=== PATIENT | female | born 1940 | race Hispanic/Latino ===

== ENCOUNTER 2016-06-24 13:59 | Emergency (ER) | payer MEDICARE, OTHER ==
[2016-06-24 13:59] VITALS: BMI 33.0
[2016-06-24 14:08] VITALS: TEMP 98.2
--- NOTE | 2016-06-24 14:36 | ED PDOC ---
Arrival/HPI - General Chief Complaint: Lower Extremity Problem/Injury Time Seen by Provider: 06/24/16 14:24 Historian: Patient - History of Present Illness Narrative History of Present Illness (Text): 06/24/16 14:26 75 y/o female, pmh including htn, psychiatric history including bipolar, biba c/ o rt. knee pain and swelling x 3 days with no fall or trauma. Pt. stated that she it's painful, no skin pain, no fall or trauma, no fever or chills, eating and drinking well, no dizziness, no skin discoloration, no other medical or psychological complaints. Past Medical History - Provider Review Nursing Documentation Reviewed: Yes - Infectious Disease Hx of Infectious Diseases: None - Tetanus Immunization Tetanus Immunization: Unknown - Reproductive Menopause: Yes - Past Medical History Past Medical History: Non-Contributing - Cardiac Hx Cardiac Disorders: Yes Hx Hypertension: Yes - Pulmonary Hx Respiratory Disorders: Yes Hx Bronchitis: Yes Hx Chronic Obstructive Pulmonary Disease (COPD): Yes Hx Pneumonia: Yes - Neurological Hx Neurological Disorder: Yes Hx Dizziness: Yes Hx Migraine: Yes - HEENT Hx HEENT Disorder: No - Renal Hx Renal Disorder: Yes - Endocrine/Metabolic Hx Endocrine Disorders: No - Hematological/Oncological Hx Blood Disorders: No - Integumentary Hx Dermatological Disorder: No - Musculoskeletal/Rheumatological Hx Falls: Yes - Gastrointestinal Hx Gastrointestinal Disorders: No - Genitourinary/Gynecological Hx Genitourinary Disorders: Yes Hx Incontinence: Yes Hx Urinary Tract Infection: Yes Other/Comment: prolapsed bladder - Psychiatric Hx Anxiety: Yes Hx Bipolar Disorder: Yes Hx Depression: Yes Hx Emotional Abuse: No Hx Physical Abuse: No Hx Sexual Abuse: No Hx Substance Use: No - Past Surgical History Past Surgical History: Non-Contributing - Surgical History Other/Comment: R BREAST sx benign, BLADDER/ fx humerus - Anesthesia Hx Anesthesia: Yes Hx Anesthesia Reactions: No Hx Malignant Hyperthermia: No - Suicidal Assessment Feels Threatened In Home Enviroment: No Family/Social History - Physician Review Nursing Documentation Reviewed: Yes Family/Social History: Unknown Family HX Smoking Status: Former Smoker Hx Alcohol Use: No Hx Substance Use: No Hx Substance Use Treatment: No Allergies/Home Meds Allergies/Adverse Reactions: Allergies clonazepam Allergy (Verified 06/24/16 14:04) RASH quetiapine Allergy (Verified 06/24/16 14:04) RASH risperidone Allergy (Verified 06/24/16 14:04) RASH Home Medications: Home Meds Medication Instructions Recorded Confirmed Docusate [Colace] 200 mg PO DAILY 06/24/16 06/24/16 Famotidine [Pepcid] 40 mg PO HS 06/24/16 06/24/16 Metoprolol Tartrate [Lopressor] 25 mg PO BID 06/24/16 06/24/16 OLANZapine [Zyprexa] 10 mg PO HS 06/24/16 06/24/16 Review of Systems - Review of Systems Constitutional: absent: Fatigue, Fevers Eyes: absent: Vision Changes ENT: absent: Hearing Changes Respiratory: absent: SOB, Cough Cardiovascular: absent: Chest Pain Gastrointestinal: absent: Abdominal Pain, Diarrhea, Nausea, Vomiting Musculoskeletal: Arthralgias, Joint Swelling. absent: Back Pain, Neck Pain, Myalgias Skin: absent: Rash, Pruritis, Skin Lesions, Laceration, Abscess, Ulcer, Cellulitis Neurological: absent: Headache, Dizziness, Focal Weakness, Gait Changes, Speech Changes, Facial Droop, Disequilibrium, Seizure, Other Physical Exam Vital Signs Reviewed: Yes Vital Signs Temp Pulse Resp BP Pulse Ox 06/24/16 18:00 67 18 142/71 99 06/24/16 16:00 69 18 144/76 99 06/24/16 14:07 98.2 F 74 18 146/82 99 Temperature: Afebrile Blood Pressure: Normal Pulse: Regular Respiratory Rate: Normal Appearance: Positive for: Well-Appearing, Non-Toxic, Comfortable, Uncomfortable Pain Distress: Moderate Mental Status: Positive for: Alert and Oriented X 3 - Systems Exam Head: Present: Atraumatic, Normocephalic Pupils: Present: PERRL Extroacular Muscles: Present: EOMI Conjunctiva: Present: Normal Mouth: Present: Moist Mucous Membranes Neck: Present: Normal Range of Motion Respiratory/Chest: Present: Clear to Auscultation, Good Air Exchange. No: Respiratory Distress, Accessory Muscle Use Cardiovascular: Present: Regular Rate and Rhythm, Normal S1, S2. No: Murmurs Abdomen: Present: Normal Bowel Sounds. No: Tenderness, Distention, Peritoneal Signs Back: Present: Normal Inspection Upper Extremity: Present: Normal Inspection. No: Cyanosis, Edema Lower Extremity: Present: Normal Inspection, Other (Rt. lower extremity: + swelling with generalized tenderness anteriorly, negative eric and bello signs, no cellulitis or streaking, no ulcers, no ecchymosis, FROM without limitation, sensation intact, motor 5/5, +DPPT pulses, capillary refill< 2 seconds, neurovascular intact. ). No: Edema Neurological: Present: GCS=15, Speech Normal, Motor Func Grossly Intact, Memory Normal Skin: Present: Warm, Dry, Normal Color. No: Rashes Psychiatric: Present: Alert, Oriented x 3, Normal Insight, Normal Concentration Medical Decision Making ED Course and Treatment: 06/24/16 14:36 -labs/uric acid -rt. knee xray -rt. lower extremity venuous doppler -indomethacin and colchicine po -observe and reassess 06/24/16 16:40 -RLE Venuous Doppler: as per preliminary report, there is no acute DVT. -Rt. knee xray: no fracture or dislocation but there is generalized swelling. -Labs are non-significant with normal uric acid and normal wbc. 06/24/16 18:36 -Pt. given Nasids/eyad wrap/ice pack with supportive treatment, stated that she feels better now. -I spoke to Dr. Amaya which she knows the patient very well, stated that the patient doesn't live alone and has daughter that can take care of her. -Pt. stated that she feels well and wants to be discharged home. -Discharge home with indomethacin, eyad wrap, ice pack, follow up with your own pmd and orthopedic within 2 days, return to the ER for any new or worsening signs or symptoms. - Lab Interpretations Lab Results: 06/24/16 15:30 06/24/16 15:30 Lab Results 06/24/16 15:30: WBC 7.6, RBC 4.43, Hgb 13.5, Hct 40.5, MCV 91.4, MCH 30.5, MCHC 33.3, RDW 13.3, Plt Count 185, MPV 11.6 H, Gran % 63.4, Lymph % (Auto) 27.0, Bryan % (Auto) 7.9 H, Eos % (Auto) 1.4 L, Baso % (Auto) 0.3, Gran # 4.81, Lymph # 2.1, Bryan # 0.6, Eos # 0.1, Baso # 0.02, Sodium 140, Potassium 4.2, Chloride 107, Carbon Dioxide 26, Anion Gap 11, BUN 18, Creatinine 0.9, Est GFR ( Amer) > 60, Est GFR (Non-Af Amer) > 60, Random Glucose 85, Uric Acid 3.0, Calcium 8.7, Total Bilirubin 0.5, AST 28, ALT 30, Alkaline Phosphatase 88, Total Protein 7.0, Albumin 3.7, Globulin 3.3, Albumin/Globulin Ratio 1.1 I have reviewed the lab results: Yes Interpretation: No clinic. lab abnormalty - RAD Interpretation Radiology Orders: 06/24/16 14:37 KNEE W PATELLA RIGHT 3 VIEW [RAD] Stat DUPLEX LOWER EXTRM VEIN RIGHT [US] Stat RLE Venuous Doppler: as per preliminary report, there is no acute DVT. PROCEDURE: Right knee 06/24/2016 HISTORY: rt. knee pain and swelling x 3 days COMPARISON: Comparison made with radiographs right knee 05/18/2014. Dane on-not not 5 grossly chief TECHNIQUE: Multiple views of the right knee performed. FINDINGS: No evidence acute displaced fracture nor dislocation. The osseous structures appear intact. There is a small to medium-sized suprapatellar joint effusion. IMPRESSION: No acute fractures. . 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 Pain Assessment Document 06/24/16 16:47 [email or web address] (Rec: 06/24/16 16:47 [email or web address] [id number]) Pain Reassessment Is this a pain reassessment? No Sleep Is patient sleeping during reassessment? No Presence of Pain Presence of Pain Yes Pain Scale Used Pain Scale Used Numeric Location Left, Right or Bilateral Right Pain Location Body Site Knee Description Description Constant Intensity of Pain at present 6 Pain Behavior Facial Grimacing Aggravating Factors Changing Position Alleviating Factors/Management Position Change Techniques Alleviating Factors Medication - PA / [employer] INSPECTOR / Resident Statement MD/DO has reviewed & agrees with the documentation as recorded. Disposition/Present on Arrival - Present on Arrival Any Indicators Present on Arrival: No History of DVT/PE: No History of Uncontrolled Diabetes: No Urinary Catheter: No History of Decub. Ulcer: No History Surgical Site Infection Following: None - Disposition Have Diagnosis and Disposition been Completed?: Yes Diagnosis: Bursitis Disposition: HOME/ ROUTINE Disposition Time: 14:36 Patient Plan: Discharge Patient Problems: Current Active Problems Problem Status Diagnosed Syncope Acute Condition: IMPROVED Additional Instructions: Discharge home with indomethacin, eyad wrap, ice pack, follow up with your own pmd and orthopedic within 2 days, return to the ER for any new or worsening signs or symptoms. Prescriptions: Indomethacin [Indocin] 50 mg PO TID PRN #21 cap PRN Reason: Other Referrals: Zulema Amaya MD [Primary Care Provider] - Follow up with primary Pernell Heard III, MD [Medical Doctor] - Follow up with primary Forms: WORK NOTE
[2016-06-24 15:51] LABS: ADD MANUAL DIFF? NO
[2016-06-24 16:11] LABS: ALB/GLOB RATIO 1.1 (1.1-1.8); ALKALINE PHOSPHATASE 88 U/L (38-133); ALT/SGPT 30 U/L (7-56); AST/SGOT 28 U/L (15-39); BILIRUBIN,TOTAL 0.5 mg/dL (0.2-1.3); BLOOD UREA NITROGEN 18 mg/dL (7-21); CALCIUM 8.7 mg/dL (8.4-10.5); CARBON DIOXIDE 26 mmol/L (21-33); CHLORIDE 107 mmol/L (98-107); GFR AFRICAN-AMERICAN > 60; GLUCOSE,RANDOM 85 mg/dL (70-110); POTASSIUM 4.2 mmol/L (3.6-5.0); SODIUM 140 mmol/L (132-148)
[2016-06-24 16:24] LABS: BASO # 0.02 K/mm3 (0.0-2.0); BASO % 0.3 % (0.0-3.0); EOS # 0.1 (0.0-0.7); EOS % 1.4 % (1.5-5.0); GRAN # 4.81 (1.4-6.5); GRAN % 63.4 % (50.0-68.0); HEMATOCRIT 40.5 % (36.0-48.0); LYMPH # 2.1 (1.2-3.4); MEAN CELL VOLUME 91.4 fL (80.0-105.0); MEAN CORPUSCULAR HEMOGLOBIN 30.5 pg (25.0-35.0); MEAN CORPUSCULAR HGB CONC 33.3 g/dl (31.0-37.0); MEAN PLATELET VOLUME 11.6 fl (7.0-11.0); MONO # 0.6 (0.1-0.6); MONO % 7.9 % (1.0-6.0); PLATELET COUNT 185 10^3/uL (120.0-450.0); RED CELL DISTRIBUTION WIDTH 13.3 % (11.5-14.5); WHITE BLOOD COUNT 7.6 10^3/ul (4.5-11.0)
--- NOTE | 2016-06-24 16:57 | RAD ---
PROCEDURE: Right knee 06/24/2016 HISTORY: rt. knee pain and swelling x 3 days COMPARISON: Comparison made with radiographs right knee 05/18/2014. Dane on-not not 5 grossly chief TECHNIQUE: Multiple views of the right knee performed. FINDINGS: No evidence acute displaced fracture nor dislocation. The osseous structures appear intact. There is a small to medium-sized suprapatellar joint effusion. IMPRESSION: No acute fractures. . Small to medium size suprapatellar joint effusion
[2016-06-24 18:06] VITALS: BP 142/71; PULSE 67
[2016-06-24 18:47] VITALS: RESP 16; O2SAT 98
--- NOTE | 2016-06-24 19:38 | US ---
PROCEDURE: Right lower extremity venous US HISTORY: Leg pain and swelling. Evaluate for DVT. PHYSICIAN(S): Horacio Delaney M.D. TECHNIQUE: Duplex sonography and color-flow Doppler with graded compression were used to evaluate the deep venous system of the right lower extremity. FINDINGS: The visualized deep venous system of the right lower extremity is sonographically normal and compressible. Normal waveforms and augmentation are seen. There is no sonographic evidence for deep venous thrombosis in the visualized segments of the right lower extremity. IMPRESSION: 1. No sonographic evidence for deep venous thrombosis in the visualized segments of the right lower extremity.
== END 2016-06-24 18:47 | disposition home or self-care (01) ==
LOC: ED 13:59
DX: M71.9 Bursopathy, unspecified (principal)

== ENCOUNTER 2016-07-06 08:03 | Emergency (ER) | payer MEDICARE, OTHER ==
[2016-07-06 08:23] VITALS: TEMP 97.5; BMI 34.1
[2016-07-06] MEDS ORDERED: Oxycodone/Acetaminophen 5/325 mg Tab PO STA (08:39)
--- NOTE | 2016-07-06 08:48 | ED PDOC ---
Arrival/HPI - General Chief Complaint: Lower Extremity Problem/Injury Time Seen by Provider: 07/06/16 08:03 Historian: Patient - History of Present Illness Narrative History of Present Illness (Text): 07/06/16 08:43 A 75 year old female, whose past medical history includes chronic arthritis and right knee effusions, presents to the emergency department complaining of right knee swelling and pain. Patient reports she was seen in emergency room 5 days ago and had fluid removed from her knee. Patient was referred to an Orthopedist , however, she did not follow up outpatient. She denies new trauma. She reports that the fluid has reaccumulated and she is finding walking difficult. Patient denies any fever, chills, nausea, vomiting, diarrhea, abdominal pain, urinary symptoms, chest pain, shortness of breath or any other complaints. PMD: Dr. Amaya Time/Duration: Other (few days) Symptom Course: Unchanged Quality: Other Context: Home Past Medical History - Provider Review Nursing Documentation Reviewed: Yes - Infectious Disease Hx of Infectious Diseases: None - Tetanus Immunization Tetanus Immunization: Unknown - Past Medical History Past Medical History: Non-Contributing - Cardiac Hx Cardiac Disorders: Yes Hx Hypertension: Yes - Pulmonary Hx Respiratory Disorders: Yes Hx Bronchitis: Yes Hx Chronic Obstructive Pulmonary Disease (COPD): Yes Hx Pneumonia: Yes - Neurological Hx Neurological Disorder: Yes Hx Dizziness: Yes Hx Migraine: Yes - HEENT Hx HEENT Disorder: No - Renal Hx Renal Disorder: Yes - Endocrine/Metabolic Hx Endocrine Disorders: No - Hematological/Oncological Hx Blood Disorders: No - Integumentary Hx Dermatological Disorder: No - Musculoskeletal/Rheumatological Hx Musculoskeletal Disorders: Yes Hx Falls: Yes - Gastrointestinal Hx Gastrointestinal Disorders: No - Genitourinary/Gynecological Hx Genitourinary Disorders: Yes Hx Incontinence: Yes Hx Urinary Tract Infection: Yes Other/Comment: prolapsed bladder - Psychiatric Hx Psychophysiologic Disorder: Yes Hx Anxiety: Yes Hx Bipolar Disorder: Yes Hx Depression: Yes Hx Emotional Abuse: No Hx Physical Abuse: No Hx Sexual Abuse: No Hx Substance Use: No - Past Surgical History Past Surgical History: Non-Contributing - Surgical History Other/Comment: R BREAST sx benign, BLADDER/ fx humerus - Anesthesia Hx Anesthesia: Yes Hx Anesthesia Reactions: No Hx Malignant Hyperthermia: No - Suicidal Assessment Feels Threatened In Home Enviroment: No Family/Social History - Physician Review Nursing Documentation Reviewed: Yes Family/Social History: No Known Family HX Smoking Status: Former Smoker Hx Alcohol Use: No Hx Substance Use: No Hx Substance Use Treatment: No Allergies/Home Meds Allergies/Adverse Reactions: Allergies clonazepam Allergy (Verified 07/06/16 08:27) RASH quetiapine Allergy (Verified 07/06/16 08:27) RASH risperidone Allergy (Verified 07/06/16 08:27) RASH Home Medications: Home Meds Medication Instructions Recorded Confirmed Docusate [Colace] 200 mg PO DAILY 06/24/16 06/24/16 Famotidine [Pepcid] 40 mg PO HS 06/24/16 06/24/16 Metoprolol Tartrate [Lopressor] 25 mg PO BID 06/24/16 06/24/16 OLANZapine [Zyprexa] 10 mg PO HS 06/24/16 06/24/16 Review of Systems - Physician Review All systems were reviewed & negative as marked: Yes - Review of Systems Constitutional: absent: Fevers, Night Sweats Respiratory: absent: SOB Cardiovascular: absent: Chest Pain Gastrointestinal: absent: Abdominal Pain, Diarrhea, Nausea, Vomiting Genitourinary Female: absent: Dysuria, Frequency, Hematuria, Urine Output Changes Musculoskeletal: Other (Right knee swelling and pain) Physical Exam Vital Signs Reviewed: Yes Vital Signs Temp Pulse Resp BP Pulse Ox 07/06/16 12:46 56 L 16 163/95 H 97 07/06/16 11:28 55 L 18 170/98 H 98 07/06/16 10:44 62 18 170/94 H 97 07/06/16 08:22 97.5 F L 73 18 173/80 H 97 Temperature: Afebrile Blood Pressure: Hypertensive Pulse: Regular Respiratory Rate: Normal Appearance: Positive for: Well-Appearing, Non-Toxic, Comfortable Pain Distress: None Mental Status: Positive for: Alert and Oriented X 3 - Systems Exam Head: Present: Atraumatic, Normocephalic Pupils: Present: PERRL Extroacular Muscles: Present: EOMI Conjunctiva: Present: Normal Lower Extremity: Present: NORMAL PULSES, Normal ROM, Swelling (in rightknee), Neurovascularly Intact. No: Edema, CALF TENDERNESS, Tenderness, Erythema ( compared to left knee), Deformity, Temperature Abnormalties (compared to left knee) Neurological: Present: GCS=15, CN II-XII Intact, Speech Normal Skin: Present: Warm, Dry, Normal Color. No: Rashes Psychiatric: Present: Alert, Oriented x 3, Normal Insight, Normal Concentration Medical Decision Making ED Course and Treatment: 07/06/16 08:43 Impression: A 75 year old female with right knee swelling and pain. Differential Diagnosis included but are not limited to: Plan: -- Percocet -- Reassess and disposition Prior Visits: Notes and results from previous visits were reviewed. Patient last seen in the ED on 07/01/16. Patient had an ultrasound done which was negative for DVT. Previous xray was negative for fracture. Cytology report showed no growth and was negative for crystals- essentially ruling out gout and septic joint. Progress Notes: 07/06/16 09:06 Xray today shows osteoarthritis and small joint effusion. Case discussed with Dr. Amaya, who is aware of and agrees with plan to discharge home and follow up with orthopedist. She is aware of negative DVT and negative cytology results from 5 days ago. 07/06/16 09:39 Spoke with patients daughter who agrees that patient must be seen by Dr. Mccarthy. She states she wanted her brother to take her to the orthopedist today not the emergency room. She states she will arrive to emergency room at 12 :30 today and take patient to orthopedist for an appointment at 12:45. 07/06/16 13:03 Dr. Mccarthy aware and patient given copies of u/s, xrays, cytology and micro. Daughter at bedside and will take patient now to his office - RAD Interpretation Radiology Orders: 07/06/16 12:44 KNEE RIGHT 2 VIEWS (AP & LAT) [RAD] Stat - Medication Orders Current Medication Orders: Discontinued Medications Oxycodone/Acetaminophen (Percocet 5/325 Mg Tab) 1 tab PO STAT STA Stop: 07/06/16 08:40 Last Admin: 07/06/16 09:02 Dose: 1 tab - Scribe Statement The provider has reviewed the documentation as recorded by the Laniibtanvir Griggs Provider Scribe Attestation: All medical record entries made by the Scribe were at my direction and personally dictated by me. I have reviewed the chart and agree that the record accurately reflects my personal performance of the history, physical exam, medical decision making, and the department course for this patient. I have also personally directed, reviewed, and agree with the discharge instructions and disposition. Disposition/Present on Arrival - Present on Arrival Any Indicators Present on Arrival: No History of DVT/PE: No History of Uncontrolled Diabetes: No Urinary Catheter: No History of Decub. Ulcer: No History Surgical Site Infection Following: None - Disposition Have Diagnosis and Disposition been Completed?: Yes Diagnosis: Knee effusion Disposition: HOME/ ROUTINE Disposition Time: 09:39 Patient Plan: Discharge Condition: GOOD Discharge Instructions (ExitCare): Swollen Knee Joint (ED) Additional Instructions: Follow up with orthopedist as scheduled today. Follow-up with Dr. Palacios tomorrow. Return to ED if condition worsens. Referrals: Zulema Amaya MD [Primary Care Provider] - Follow up with primary Frederic Mccarthy DO [Staff Provider] - Follow up with primary
[2016-07-06 13:10] VITALS: BP 163/95; PULSE 56; RESP 16; O2SAT 97
--- NOTE | 2016-07-06 13:36 | RAD ---
PROCEDURE: Right Knee Radiographs. HISTORY: r knee pain COMPARISON: None. FINDINGS: BONES: No fracture. JOINTS: Tricompartmental osteoarthritis. No articular erosion. JOINT EFFUSION: Small joint effusion. OTHER FINDINGS: None. IMPRESSION: Tricompartmental osteoarthritis with small joint effusion. No fracture.
== END 2016-07-06 13:03 | disposition home or self-care (01) ==
LOC: ED 08:03
DX: M25.461 Effusion, right knee (principal); Z87.891 Personal history of nicotine dependence; I10 Essential (primary) hypertension; J44.9 Chronic obstructive pulmonary disease, unspecified

== ENCOUNTER 2016-11-05 15:25 | Observation (INO) | payer MEDICARE, OTHER ==
[2016-11-05] MEDS ORDERED: Sodium Chloride 0.9% 500 ML IV STA (16:01)
--- NOTE | 2016-11-05 16:06 | ED PDOC ---
Arrival/HPI - General Chief Complaint: Abdominal Pain Time Seen by Provider: 11/05/16 15:39 Historian: Patient - History of Present Illness Narrative History of Present Illness (Text): 11/05/16 16:06 A 75 year old female presents to the emergency department complaining of abdominal pain for the past couple of days. Patient reports left lower quadrant abdominal pain radiating to left upper quadrant. Patient notes some dysuria but denies any fever, vomiting, diarrhea or any other complaints at this time. PMD: Dr. Amaya Time/Duration: < week Symptom Onset: Sudden Symptom Course: Unchanged Activities at Onset: Rest Context: Home Past Medical History - Provider Review Nursing Documentation Reviewed: Yes - Infectious Disease Hx of Infectious Diseases: None - Tetanus Immunization Tetanus Immunization: Unknown - Reproductive Menopause: Yes - Past Medical History Past Medical History: Non-Contributing - Cardiac Hx Cardiac Disorders: Yes Hx Hypertension: Yes - Pulmonary Hx Respiratory Disorders: Yes Hx Bronchitis: Yes Hx Chronic Obstructive Pulmonary Disease (COPD): Yes Hx Pneumonia: Yes - Neurological Hx Neurological Disorder: Yes Hx Dizziness: Yes Hx Migraine: Yes - HEENT Hx HEENT Disorder: No - Renal Hx Renal Disorder: Yes - Endocrine/Metabolic Hx Endocrine Disorders: No - Hematological/Oncological Hx Blood Disorders: No - Integumentary Hx Dermatological Disorder: No - Musculoskeletal/Rheumatological Hx Musculoskeletal Disorders: Yes Hx Falls: Yes - Gastrointestinal Hx Gastrointestinal Disorders: No - Genitourinary/Gynecological Hx Genitourinary Disorders: Yes Hx Incontinence: Yes Hx Urinary Tract Infection: Yes Other/Comment: prolapsed bladder - Psychiatric Hx Psychophysiologic Disorder: Yes Hx Anxiety: Yes Hx Bipolar Disorder: Yes Hx Depression: Yes Hx Emotional Abuse: No Hx Physical Abuse: No Hx Sexual Abuse: No Hx Substance Use: No - Past Surgical History Past Surgical History: Non-Contributing - Surgical History Other/Comment: R BREAST sx benign, BLADDER/ fx humerus - Anesthesia Hx Anesthesia: Yes Hx Anesthesia Reactions: No Hx Malignant Hyperthermia: No - Suicidal Assessment Feels Threatened In Home Enviroment: No Family/Social History - Physician Review Nursing Documentation Reviewed: Yes Family/Social History: No Known Family HX Smoking Status: Former Smoker Hx Alcohol Use: No Hx Substance Use: No Hx Substance Use Treatment: No Allergies/Home Meds Allergies/Adverse Reactions: Allergies clonazepam Allergy (Verified 11/05/16 15:38) RASH quetiapine Allergy (Verified 11/05/16 15:38) RASH risperidone Allergy (Verified 11/05/16 15:38) RASH tomato Adverse Reaction (Verified 11/05/16 15:38) RASH Home Medications: Home Meds Medication Instructions Recorded Confirmed Docusate [Colace] 200 mg PO DAILY 06/24/16 11/05/16 Famotidine [Pepcid] 40 mg PO HS 06/24/16 11/05/16 Metoprolol Tartrate [Lopressor] 25 mg PO BID 06/24/16 11/05/16 OLANZapine [Zyprexa] 10 mg PO HS 06/24/16 11/05/16 Review of Systems - Physician Review All systems were reviewed & negative as marked: Yes - Review of Systems Constitutional: absent: Fevers Gastrointestinal: Abdominal Pain. absent: Diarrhea, Vomiting Genitourinary Female: Dysuria Physical Exam Vital Signs Reviewed: Yes Vital Signs Temp Pulse Resp BP Pulse Ox 11/05/16 19:54 57 L 20 151/75 H 95 11/05/16 15:36 98.1 F 60 19 142/95 H 99 Temperature: Afebrile Blood Pressure: Hypertensive Pulse: Regular Respiratory Rate: Normal Appearance: Positive for: Well-Appearing, Non-Toxic, Comfortable Pain Distress: None Mental Status: Positive for: Alert and Oriented X 3 - Systems Exam Head: Present: Atraumatic, Normocephalic Pupils: Present: PERRL Extroacular Muscles: Present: EOMI Conjunctiva: Present: Normal Mouth: Present: Moist Mucous Membranes Neck: Present: Normal Range of Motion Respiratory/Chest: Present: Clear to Auscultation, Good Air Exchange. No: Respiratory Distress, Accessory Muscle Use Cardiovascular: Present: Regular Rate and Rhythm, Normal S1, S2. No: Murmurs Abdomen: Present: Tenderness (suprapubic), Normal Bowel Sounds. No: Distention , Peritoneal Signs Back: Present: Normal Inspection Upper Extremity: Present: Normal Inspection. No: Cyanosis, Edema Lower Extremity: Present: Normal Inspection. No: Edema Neurological: Present: GCS=15, CN II-XII Intact, Speech Normal Skin: Present: Warm, Dry, Normal Color. No: Rashes Psychiatric: Present: Alert, Oriented x 3, Normal Insight, Normal Concentration Medical Decision Making ED Course and Treatment: 11/05/16 16:04 Impression: A 75 year old female with abdominal pain. Plan: -- CT abd/pelvis -- labs -- Urinalysis -- IV fluids, Toradol, Flagyl, Rocephin -- Reassess and disposition Prior Visits: Notes and results from previous visits were reviewed. Patient was last seen in the emergency department on 07/06/16 for evaluation of right knee swelling and pain. Progress Notes: CT Abdomen and Pelvis With Intravenous Contrast FINDINGS: LOWER THORAX: 3 noncalcified nodules incidentally noted in the right lung base, the largest measuring 5 mm. One of these nodules was seen on the prior study, and appears stable. In a patient of this age, recommend dedicated CT chest for further evaluation, on a nonemergent basis. Right hallux ABDOMEN: LIVER: Fatty infiltration of the liver. GALLBLADDER AND BILE DUCTS: No CT evidence of acute cholecystitis. No evidence of significant biliary ductal dilatation. PANCREAS: No CT evidence of acute pancreatitis. SPLEEN: No acute abnormality of the spleen identified. ADRENALS: No acute abnormality of the adrenal glands identified. KIDNEYS AND URETERS: Scattered fluid density lesions in the kidneys bilaterally , most likely representing cysts. The largest of these measures 7 mm. No further followup imaging is recommended for incidental lesions of this size, unless otherwise clinically indicated. No acute abnormality of the kidneys identified. STOMACH AND BOWEL: Colonic diverticulosis, with no evidence of acute diverticulitis. Otherwise, no significant abnorma and in lity of the bowel is identified. No evidence of bowel obstruction. APPENDIX: Appendix is fluid-filled and is mildly dilated, measuring 11 mm in diameter (normal less than 6 mm), however, its size is stable compared to the previous exam, and there is a tiny focus of air in its lumen. No evidence of significant periappendiceal inflammation or appendiceal wall thickening. Findings are most likely within normal limits. PELVIS: BLADDER: No acute abnormality of the bladder identified. REPRODUCTIVE: No acute abnormality of the reproductive organs is seen. No acute abnormality of the uterus identified. No evidence of large adnexal masses ABDOMEN and PELVIS: INTRAPERITONEAL SPACE: No evidence of free intraperitoneal air or fluid. BONES/JOINTS: Stable appearance of a chronic vertebral compression fracture at L1, associated with 50% height loss and mild vertebral retropulsion. No acute fractures or other acute bony abnormality noted. SOFT TISSUES: No acute abnormality of the visualized soft tissues is seen. VASCULATURE: No evidence of abdominal aortic aneurysm. No evidence of periaortic hemorrhage. LYMPH NODES: No evidence of diffuse lymphadenopathy. IMPRESSION: - Mild appendiceal dilatation, a stable finding compared to a prior CT, and most likely within normal limits in this patient. Please correlate with any signs or symptoms of early appendicitis, however. - Incidental subcentimeter pulmonary nodules. See recommendations above. - See above for remaining findings. Dictated and Authenticated by: Maggie Grant MD 11/05/2016 7:49 PM Eastern Time ([place] & [place]) 11/05/16 20:40 ct equivocal for appendicitis, discusse shaina amaya, requests dr bermudez consult. - Lab Interpretations Lab Results: 11/05/16 16:45 11/05/16 16:45 Lab Results 11/05/16 16:45: Sodium 143, Potassium 4.1, Chloride 109 H, Carbon Dioxide 22, Anion Gap 16, BUN 17, Creatinine 0.8, Est GFR ( Amer) > 60, Est GFR (Non- Af Amer) > 60, Random Glucose 92, Calcium 9.3, Total Bilirubin 0.7, AST 22, ALT 34, Alkaline Phosphatase 100, Total Protein 7.0, Albumin 4.0, Globulin 2.9, Albumin/Globulin Ratio 1.4, Lipase 68 11/05/16 16:45: Urine Color Light yellow, Urine Appearance Clear, Urine pH 6.5, Ur Specific [place] 1.015, Urine Protein Trace H, Urine Glucose (UA) Negative, Urine Ketones Negative, Urine Blood Negative, Urine Nitrate Negative, Urine Bilirubin Negative, Urine Urobilinogen 0.2, Ur Leukocyte Esterase Moderate H, Urine RBC 1 - 3, Urine WBC 10 - 15, Ur Epithelial Cells 3 - 4, Urine Bacteria Small, Urine HCG, Qual Negative 11/05/16 16:45: PT 11.3, INR 1.05, APTT 26.4 11/05/16 16:45: WBC 6.9, RBC 4.78, Hgb 14.6, Hct 43.9, MCV 91.8, MCH 30.5, MCHC 33.3, RDW 12.9, Plt Count 188, MPV 12.4 H, Gran % 68.0, Lymph % (Auto) 21.9 L, [place] % (Auto) 8.5 H, Eos % (Auto) 1.3 L, Baso % (Auto) 0.3, Gran # 4.72, Lymph # 1.5, [place] # 0.6, Eos # 0.1, Baso # 0.02 I have reviewed the lab results: Yes - RAD Interpretation Radiology Orders: 11/05/16 17:21 ABD & PELVIS IV CONTRAST ONLY [CT] Stat - Medication Orders Current Medication Orders: Docusate Sodium (Colace) 100 mg PO BID ANTONIA Ceftriaxone Sodium (Rocephin 1 Gram Ivpb) 1 gm in 100 mls @ 100 mls/hr IVPB DAILY ANTONIA PRN Reason: Protocol Lactulose (Enulose) 10 gm PO BID ANTONIA Discontinued Medications Sodium Chloride (Sodium Chloride 0.9%) 500 mls @ 1,000 mls/hr IV .Q30M STA Stop: 11/05/16 16:30 Last Admin: 11/05/16 16:25 Dose: 1,000 mls/hr Ceftriaxone Sodium (Rocephin 1 Gram Ivpb) 1 gm in 100 mls @ 200 mls/hr IVPB STAT STA PRN Reason: Protocol Stop: 11/05/16 18:05 Last Admin: 11/05/16 18:49 Dose: 200 mls/hr Metronidazole (Flagyl) 500 mg in 100 mls @ 100 mls/hr IVPB STAT STA PRN Reason: Protocol Stop: 11/05/16 20:49 Last Admin: 11/05/16 20:23 Dose: 100 mls/hr Ketorolac Tromethamine (Toradol) 30 mg IVP STAT STA Stop: 11/05/16 16:02 Last Admin: 11/05/16 16:25 Dose: 30 mg Re-Assess: AGATA Pain Assessment Document 11/05/16 17:25 OCS (Rec: 11/05/16 20:23 OCS [facility] [place]-[id number]) Pain Reassessment Is this a pain reassessment? Yes Sleep Is patient sleeping during reassessment? Yes - Scribe Statement The provider has reviewed the documentation as recorded by the Silver Hammond Provider Scribe Attestation: All medical record entries made by the Scribe were at my direction and personally dictated by me. I have reviewed the chart and agree that the record accurately reflects my personal performance of the history, physical exam, medical decision making, and the department course for this patient. I have also personally directed, reviewed, and agree with the discharge instructions and disposition. Disposition/Present on Arrival - Present on Arrival Any Indicators Present on Arrival: No History of DVT/PE: No History of Uncontrolled Diabetes: No Urinary Catheter: No History of Decub. Ulcer: No History Surgical Site Infection Following: None - Disposition Have Diagnosis and Disposition been Completed?: Yes Diagnosis: Abdominal pain Disposition: HOSPITALIZED Disposition Time: 10:00 Condition: STABLE
[2016-11-05 17:02] LABS: ALB/GLOB RATIO 1.4 (1.1-1.8); ALKALINE PHOSPHATASE 100 U/L (38-133); ALT/SGPT 34 U/L (7-56); AST/SGOT 22 U/L (15-39); BILIRUBIN,TOTAL 0.7 mg/dL (0.2-1.3); BLOOD UREA NITROGEN 17 mg/dL (7-21); CALCIUM 9.3 mg/dL (8.4-10.5); CARBON DIOXIDE 22 mmol/L (21-33); CHLORIDE 109 mmol/L (98-107); GFR AFRICAN-AMERICAN > 60; GLUCOSE,RANDOM 92 mg/dL (70-110); LIPASE 68 U/L (23-300); PH,URINE 6.5 (4.7-8.0); POTASSIUM 4.1 mmol/L (3.6-5.0); SODIUM 143 mmol/L (132-148); URINE BILIRUBIN NEGATIVE (NEGATIVE); URINE BLOOD NEGATIVE (NEGATIVE); URINE GLUCOSE (UA) NEGATIVE (NEGATIVE); URINE KETONE NEGATIVE (NEGATIVE); URINE LEUKOCYTE ESTERASE MODERATE Leu/uL (NEGATIVE); URINE PROTEIN TRACE mg/dL (<30 mg/dL); URINE UROBILINOGEN 0.2 E.U./dL (<1 E.U./dL)
[2016-11-05 17:09] LABS: INR 1.05 (0.93-1.08); PARTIAL THROMBOPLASTIN TIME 26.4 Seconds (23.7-30.8)
[2016-11-05 17:15] LABS: BASO # 0.02 K/mm3 (0.0-2.0); BASO % 0.3 % (0.0-3.0); EOS # 0.1 (0.0-0.7); EOS % 1.3 % (1.5-5.0); GRAN # 4.72 (1.4-6.5); HEMATOCRIT 43.9 % (36.0-48.0); LYMPH # 1.5 (1.2-3.4); LYMPH % 21.9 % (22.0-35.0); MEAN CELL VOLUME 91.8 fl (80.0-105.0); MEAN CORPUSCULAR HEMOGLOBIN 30.5 pg (25.0-35.0); MEAN CORPUSCULAR HGB CONC 33.3 g/dl (31.0-37.0); MEAN PLATELET VOLUME 12.4 fl (7.0-11.0); MONO # 0.6 (0.1-0.6); MONO % 8.5 % (1.0-6.0); RED CELL DISTRIBUTION WIDTH 12.9 % (11.5-14.5); WHITE BLOOD COUNT 6.9 10^3/ul (4.5-11.0)
[2016-11-05 17:18] LABS: URINE COLOR LIGHT YELLOW (YELLOW)
[2016-11-05 17:19] LABS: URINE APPEARANCE CLEAR (CLEAR)
[2016-11-05 17:32] LABS: URINE BACTERIA SMALL (NEG)
[2016-11-05] MEDS ORDERED: cefTRIAXone 1 gm 1 GM/100 ML BAG IVPB STA (17:36)
--- NOTE | 2016-11-05 19:49 | CT ---
EXAM: CT Abdomen and Pelvis With Intravenous Contrast EXAM DATE/TIME: 11/05/2016 5:21 PM CLINICAL HISTORY: 75 years old, female; Pain; Abdominal pain; Other: Lower abd pain; Prior surgery; Surgery date: 6+ months; Surgery type: Surgery in relation to , pt unaware of what kind. Said something so she could have a baby TECHNIQUE: Axial computed tomography images of the abdomen and pelvis with intravenous contrast. All CT scans at this facility use one or more dose reduction techniques, viz.: automated exposure control; ma/kV adjustment per patient size (including targeted exams where dose is matched to indication; i.e. head); or iterative reconstruction technique. Coronal and sagittal reformatted images were created and reviewed. CONTRAST: 100 mL of OMNIPAQUE 350 administered intravenously. COMPARISON: Prior CT abdomen and pelvis of 03/13/2016 FINDINGS: LOWER THORAX: 3 noncalcified nodules incidentally noted in the right lung base, the largest measuring 5 mm. One of these nodules was seen on the prior study, and appears stable. In a patient of this age, recommend dedicated CT chest for further evaluation, on a nonemergent basis. Right hallux ABDOMEN: LIVER: Fatty infiltration of the liver. GALLBLADDER AND BILE DUCTS: No CT evidence of acute cholecystitis. No evidence of significant biliary ductal dilatation. PANCREAS: No CT evidence of acute pancreatitis. SPLEEN: No acute abnormality of the spleen identified. ADRENALS: No acute abnormality of the adrenal glands identified. KIDNEYS AND URETERS: Scattered fluid density lesions in the kidneys bilaterally, most likely representing cysts. The largest of these measures 7 mm. No further followup imaging is recommended for incidental lesions of this size, unless otherwise clinically indicated. No acute abnormality of the kidneys identified. STOMACH AND BOWEL: Colonic diverticulosis, with no evidence of acute diverticulitis. Otherwise, no significant abnorma and in lity of the bowel is identified. No evidence of bowel obstruction. APPENDIX: Appendix is fluid-filled and is mildly dilated, measuring 11 mm in diameter (normal less than 6 mm), however, its size is stable compared to the previous exam, and there is a tiny focus of air in its lumen. No evidence of significant periappendiceal inflammation or appendiceal wall thickening. Findings are most likely within normal limits. PELVIS: BLADDER: No acute abnormality of the bladder identified. REPRODUCTIVE: No acute abnormality of the reproductive organs is seen. No acute abnormality of the uterus identified. No evidence of large adnexal masses ABDOMEN and PELVIS: INTRAPERITONEAL SPACE: No evidence of free intraperitoneal air or fluid. BONES/JOINTS: Stable appearance of a chronic vertebral compression fracture at L1, associated with 50% height loss and mild vertebral retropulsion. No acute fractures or other acute bony abnormality noted. SOFT TISSUES: No acute abnormality of the visualized soft tissues is seen. VASCULATURE: No evidence of abdominal aortic aneurysm. No evidence of periaortic hemorrhage. LYMPH NODES: No evidence of diffuse lymphadenopathy. IMPRESSION: - Mild appendiceal dilatation, a stable finding compared to a prior CT, and most likely within normal limits in this patient. Please correlate with any signs or symptoms of early appendicitis, however. - Incidental subcentimeter pulmonary nodules. See recommendations above. - See above for remaining findings.
[2016-11-05] MEDS ORDERED: metroNIDAZOLE IV 500 mg/100 ml 500 MG/100 ML BAG IVPB STA (19:50)
--- NOTE | 2016-11-05 21:15 | CP.PCM.CON ---
<Nicky Grayson - Last Filed: 11/05/16 21:10> History of Present Illness - History of Present Illness History of Present Illness: Surgery: Dr. Aaron Reason for consult: abdominal pain CC: "pain in my vagina when I pee and after I pee" HPI: Patient is a 75 y/o female w/ pmhx of schizophrenic bipolar depression with multiple psychiatric admissions as well as UTIs and HTN, presents complaining of pain in her vagina when she urinates. She states she has had pain for months and no one has given her anything to help. She is an overall poor historian. She denies any bleeding from the vagina or in the urine. She reports chronic constipation issues but states her last bowel movement was earlier this morning. She denies fever or chills. Interview is circumferential conversation with constant redirection to questioning. PMH: chronic constipation, UTI, HTN?, schizophrenia, bipolar, depression PSH: ORIF of L humerus 2/2 humeral shaft fracture Social: reports living at home with her son and she states she takes care of herself and performs all ADLs Review of Systems - Review of Systems All systems: reviewed and no additional remarkable complaints except Review of Systems: poor historian, otherwise negative Past Patient History - Infectious Disease Hx of Infectious Diseases: None - Tetanus Immunizations Tetanus Immunization: Unknown - Past Social History Smoking Status: Former Smoker - CARDIAC Hx Cardiac Disorders: Yes Hx Hypertension: Yes - PULMONARY Hx Respiratory Disorders: Yes Hx Bronchitis: Yes Hx Chronic Obstructive Pulmonary Disease (COPD): Yes Hx Pneumonia: Yes - NEUROLOGICAL Hx Neurological Disorder: Yes Hx Dizziness: Yes Hx Migraine: Yes - HEENT Hx HEENT Problems: No - RENAL Hx Chronic Kidney Disease: Yes - ENDOCRINE/METABOLIC Hx Endocrine Disorders: No - HEMATOLOGICAL/ONCOLOGICAL Hx Blood Disorders: No - INTEGUMENTARY Hx Dermatological Problems: No - MUSCULOSKELETAL/RHEUMATOLOGICAL Hx Musculoskeletal Disorders: Yes Hx Falls: Yes - GASTROINTESTINAL Hx Gastrointestinal Disorders: No - GENITOURINARY/GYNECOLOGICAL Hx Genitourinary Disorders: Yes Hx Incontinence: Yes Hx Urinary Tract Infection: Yes Other/Comment: prolapsed bladder - PSYCHIATRIC Hx Psychophysiologic Disorder: Yes Hx Anxiety: Yes Hx Bipolar Disorder: Yes Hx Depression: Yes Hx Emotional Abuse: No Hx Physical Abuse: No Hx Sexual Abuse: No Hx Substance Use: No - SURGICAL HISTORY Other/Comment: R BREAST sx benign, BLADDER/ fx humerus - ANESTHESIA Hx Anesthesia: Yes Hx Anesthesia Reactions: No Hx Malignant Hyperthermia: No Meds Allergies/Adverse Reactions: Allergies Allergy/AdvReac Type Severity Reaction Status Date / Time clonazepam Allergy RASH Verified 11/05/16 15:38 quetiapine Allergy RASH Verified 11/05/16 15:38 risperidone Allergy RASH Verified 11/05/16 15:38 tomato AdvReac RASH Verified 11/05/16 15:38 - Medications Medications: Current Medications Ceftriaxone Sodium (Rocephin 1 Gram Ivpb) 1 gm in 100 mls @ 100 mls/hr IVPB DAILY ANTONIA PRN Reason: Protocol Physical Exam - Constitutional Appears: Non-toxic, No Acute Distress, Chronically Ill - Head Exam Head Exam: ATRAUMATIC, NORMOCEPHALIC - Eye Exam Eye Exam: Normal appearance - ENT Exam ENT Exam: Mucous Membranes Moist - Respiratory Exam Respiratory Exam: NORMAL BREATHING PATTERN. absent: Respiratory Distress - Cardiovascular Exam Cardiovascular Exam: REGULAR RHYTHM. absent: Tachycardia - GI/Abdominal Exam GI & Abdominal Exam: Soft. absent: Distended, Guarding, Hernia, Rebound, Rigid , Tenderness Additional comments: fullness in LLQ most likely related to stool - Exam Exam: absent: Bladder Distension (supra pubic tenderness mild ) - Extremities Exam Extremities exam: Positive for: normal inspection. Negative for: calf tenderness - Neurological Exam Neurological exam: Alert - Psychiatric Exam Psychiatric exam: Anxious, Flat Affect - Skin Skin Exam: Dry, Rash (papular rash on abdomen, small red and raised ), Warm Results - Vital Signs Recent Vital Signs: Last Vital Signs Temp 98.1 F 11/05/16 15:36 Pulse 57 L 11/05/16 19:54 Resp 20 11/05/16 19:54 BP 151/75 H 11/05/16 19:54 Pulse Ox 95 11/05/16 19:54 - Labs Result Diagrams: 11/05/16 16:45 11/05/16 16:45 - Impressions Impression: CT: appendix 11mm w/ air intra lumen and no inflammatory changes, stable since CT in March. MOderate stool in colon. Assessment & Plan - Assessment and Plan (Free Text) Assessment: 75 y/o female w/ dysuria and suprapubic pain most likely 2/2 UTI Plan: -cont rocephin -ok for diet -most likely not appendicitis considering no pain in RLQ and CT findings stable from exam in March -pain control -f/u urine culture and adjust abx as needed -home medication per primary -stool regimine, colace BID and lactulose BID -enemas prn -further recs per Dr. Galen Tijerina PGY3 <Pernell Aaron - Last Filed: 11/06/16 09:54> Meds - Medications Medications: Current Medications Acetaminophen (Tylenol 325mg Tab) 650 mg PO Q6H PRN PRN Reason: Pain, moderate (4-7) Bupropion HCl (Wellbutrin Xl) 150 mg PO DAILY [facility] Last Admin: 11/06/16 09:15 Dose: 150 mg Docusate Sodium (Colace) 100 mg PO BID [facility] Last Admin: 11/06/16 09:16 Dose: 100 mg Famotidine (Pepcid) 40 mg PO HS [facility] Folic Acid (Folic Acid) 1 mg PO DAILY [facility] Last Admin: 11/06/16 09:15 Dose: 1 mg Ceftriaxone Sodium (Rocephin 1 Gram Ivpb) 1 gm in 100 mls @ 100 mls/hr IVPB DAILY [facility] PRN Reason: Protocol Last Admin: 11/06/16 09:18 Dose: 100 mls/hr Lactulose (Enulose) 10 gm PO BID [facility] Last Admin: 11/06/16 09:18 Dose: 10 gm Losartan Potassium (Cozaar) 50 mg PO DAILY [facility] Last Admin: 11/06/16 09:17 Dose: 50 mg Metoprolol Tartrate (Lopressor) 25 mg PO BID [facility] Last Admin: 11/06/16 09:15 Dose: 25 mg Olanzapine (Zyprexa) 10 mg PO HS [facility] PRN Reason: Protocol Tramadol HCl (Ultram) 50 mg PO TID [facility] Last Admin: 11/06/16 09:16 Dose: 50 mg Results - Vital Signs Recent Vital Signs: Last Vital Signs Temp 98 F 11/06/16 07:53 Pulse 70 11/06/16 09:17 Resp 21 11/06/16 07:53 BP 140/72 11/06/16 09:17 Pulse Ox 95 11/06/16 07:53 - Labs Result Diagrams: 11/06/16 05:20 11/06/16 05:20 Assessment & Plan - Assessment and Plan (Free Text) Assessment: DX; constipation/Cystitis/Schizophrenia No surgery recommended now/?Interval basis This consultation done under my direct supervision R Galen MD FACS
[2016-11-05 22:45] VITALS: BMI 33.7
[2016-11-06 06:14] LABS: BASO # 0.02 K/mm3 (0.0-2.0); BASO % 0.3 % (0.0-3.0); EOS # 0.1 (0.0-0.7); EOS % 1.7 % (1.5-5.0); GRAN # 3.7 (1.4-6.5); GRAN % 62.9 % (50.0-68.0); HEMATOCRIT 41.7 % (36.0-48.0); LYMPH # 1.5 (1.2-3.4); LYMPH % 24.7 % (22.0-35.0); MEAN CELL VOLUME 92.3 fl (80.0-105.0); MEAN CORPUSCULAR HEMOGLOBIN 29.9 pg (25.0-35.0); MEAN CORPUSCULAR HGB CONC 32.4 g/dl (31.0-37.0); MEAN PLATELET VOLUME 11.8 fl (7.0-11.0); MONO # 0.6 (0.1-0.6); MONO % 10.4 % (1.0-6.0); RED CELL DISTRIBUTION WIDTH 13.2 % (11.5-14.5); WHITE BLOOD COUNT 5.9 10^3/ul (4.5-11.0)
[2016-11-06 06:45] LABS: ALB/GLOB RATIO 1.2 (1.1-1.8); ALKALINE PHOSPHATASE 90 U/L (38-133); ALT/SGPT 24 U/L (7-56); AST/SGOT 20 U/L (15-39); BILIRUBIN,TOTAL 0.6 mg/dL (0.2-1.3); BLOOD UREA NITROGEN 21 mg/dL (7-21); CALCIUM 8.9 mg/dL (8.4-10.5); CARBON DIOXIDE 24 mmol/L (21-33); CHLORIDE 110 mmol/L (95-110); GFR AFRICAN-AMERICAN > 60; GLUCOSE,RANDOM 89 mg/dL (70-110); SODIUM 142 mmol/L (132-148); TOTAL PROTEIN 6.4 g/dL (5.8-8.3)
--- NOTE | 2016-11-06 07:13 | CP.PCM.PN ---
Subjective - Date & Time of Evaluation Date of Evaluation: 11/06/16 Time of Evaluation: 07:09 - Subjective Subjective: General Surgery Progress note for Dr. Aaron PT S&E at bedside. JUANI. Patient still had pain in her genital region. Patient is currently on rocephin for UTI. Patient denies Fever, Chills, N/V, Headache. Patient states she feels better than yesterday. Objective - Vital Signs/Intake and Output Vital Signs (last 24 hours): Temp Pulse Resp BP Pulse Ox 98.1 F 57 L 20 151/75 H 95 11/05/16 15:36 11/05/16 19:54 11/05/16 22:32 11/05/16 19:54 11/05/16 19:54 Intake and Output: 11/06/16 11/06/16 06:59 18:59 Intake Total 240 Balance 240 - Medications Medications: Current Medications Bupropion HCl (Wellbutrin Xl) 150 mg PO DAILY ANTONIA Docusate Sodium (Colace) 100 mg PO BID ANTONIA Famotidine (Pepcid) 40 mg PO HS ANTONIA Folic Acid (Folic Acid) 1 mg PO DAILY ANTONIA Ceftriaxone Sodium (Rocephin 1 Gram Ivpb) 1 gm in 100 mls @ 100 mls/hr IVPB DAILY ANTONIA PRN Reason: Protocol Lactulose (Enulose) 10 gm PO BID ANTONIA Losartan Potassium (Cozaar) 50 mg PO DAILY ANTONIA Metoprolol Tartrate (Lopressor) 25 mg PO BID ANTONIA Olanzapine (Zyprexa) 10 mg PO HS ANTONIA PRN Reason: Protocol - Labs Labs: 11/06/16 05:20 11/06/16 05:20 PT 11.3 Seconds (9.9-11.8) 11/05/16 16:45 INR 1.05 (0.93-1.08) 11/05/16 16:45 APTT 26.4 Seconds (23.7-30.8) 11/05/16 16:45 - Constitutional Appears: Non-toxic, No Acute Distress - Head Exam Head Exam: NORMAL INSPECTION - Eye Exam Eye Exam: EOMI, Normal appearance - ENT Exam ENT Exam: Mucous Membranes Moist - Neck Exam Neck Exam: Full ROM - Respiratory Exam Respiratory Exam: NORMAL BREATHING PATTERN. absent: Accessory Muscle Use, Respiratory Distress - Cardiovascular Exam Cardiovascular Exam: REGULAR RHYTHM. absent: Tachycardia - GI/Abdominal Exam GI & Abdominal Exam: Soft, Normal Bowel Sounds. absent: Firm, Diminished Bowel Sounds, Pulsatile Mass - Extremities Exam Extremities Exam: Full ROM. absent: Joint Swelling, Pedal Edema - Neurological Exam Neurological Exam: Alert, Awake - Psychiatric Exam Psychiatric exam: Normal Affect, Normal Mood - Skin Skin Exam: Dry, Intact, Normal Color, Warm Assessment and Plan - Assessment and Plan (Free Text) Assessment: 75 F presents with dysuria, suprapubic pain, UTI, hemodynamically stable with no surgical interventions needed at this time Plan: c/w current abx rocephin HHD diet c/w pain control f/u urine culture and adjust abx as needed c/w home medication per medicine team c/w stool regimen: colace BID and lactulose BID, enemas PRN Patient is currently stable, being treated for UTI, no surgical intervention needed at this time.
[2016-11-06] MEDS ORDERED: buPROPion 150 mg/24 Hours XL Tab PO SCH (10:00)
[2016-11-06] MEDS ORDERED: cefTRIAXone 1 gm 1 GM/100 ML BAG IVPB SCH (10:00)
--- NOTE | 2016-11-06 10:53 | CP.PCM.PCO ---
Physician Communication Note - Physician Communication Note Physician Communication Note: Dx: Constipation/Cystitis/Schizophrenia-NO Surgery recommended
[2016-11-06] MEDS: POLYETHYLENE GLYCOL 3350 17 GM/Dose PACKET PO SCH ×2 (11:54→18:05)
--- NOTE | 2016-11-06 16:24 | RAD ---
PROCEDURE: Radiographs of the Lumbar Spine. HISTORY: Fall COMPARISON: No prior. FINDINGS: BONES: There is a moderate compression fracture of L1. This was also visible on the CT scan dated 03/13/2016. DISC SPACES: Unremarkable. OTHER FINDINGS: None. IMPRESSION: Moderate chronic compression fracture of L1. No acute findings
[2016-11-06 17:17] VITALS: RESP 18; TEMP 98.2; O2SAT 99
--- NOTE | 2016-11-06 17:54 | CP.PCM.PN ---
<TU VAZQUEZ - Last Filed: 11/06/16 17:51> Subjective - Date & Time of Evaluation Date of Evaluation: 11/06/16 Time of Evaluation: 15:50 - Subjective Subjective: Code star called, responded and found patient lying in bed. Patient fell while standing on one leg trying to put her pants on. Patient reports that she fell on to her buttocks, and did not hit her head. Her head remained elevated. She denies LOC, dizziness, confusion. She now denies PARRISH, CP, SOB. She admits to mild low back pain, chronic and unchanged. LS XR ordered, read as moderate chonic compression fracture of L1 with no acute findings. Findings reported to primary doctor. Objective - Vital Signs/Intake and Output Vital Signs (last 24 hours): Temp Pulse Resp BP Pulse Ox 98.2 F 69 18 138/72 99 11/06/16 16:00 11/06/16 16:00 11/06/16 16:00 11/06/16 16:00 11/06/16 16:00 Intake and Output: 11/06/16 11/06/16 06:59 18:59 Intake Total 780 Balance 780 - Medications Medications: Current Medications Acetaminophen (Tylenol 325mg Tab) 650 mg PO Q6H PRN PRN Reason: Pain, moderate (4-7) Last Admin: 11/06/16 11:46 Dose: 650 mg Bupropion HCl (Wellbutrin Xl) 150 mg PO DAILY [facility] Last Admin: 11/06/16 09:15 Dose: 150 mg Docusate Sodium (Colace) 100 mg PO BID [facility] Last Admin: 11/06/16 09:16 Dose: 100 mg Famotidine (Pepcid) 40 mg PO [facility] Folic Acid (Folic Acid) 1 mg PO DAILY [facility] Last Admin: 11/06/16 09:15 Dose: 1 mg Ceftriaxone Sodium (Rocephin 1 Gram Ivpb) 1 gm in 100 mls @ 100 mls/hr IVPB DAILY [facility] PRN Reason: Protocol Last Admin: 11/06/16 09:18 Dose: 100 mls/hr Losartan Potassium (Cozaar) 50 mg PO DAILY [facility] Last Admin: 11/06/16 09:17 Dose: 50 mg Metoprolol Tartrate (Lopressor) 25 mg PO BID [facility] Last Admin: 11/06/16 09:15 Dose: 25 mg Olanzapine (Zyprexa) 10 mg PO HS [facility] PRN Reason: Protocol Polyethylene Glycol (Miralax) 17 gm PO BID [facility] Last Admin: 11/06/16 11:54 Dose: 17 gm Tramadol HCl (Ultram) 50 mg PO TID [facility] Last Admin: 11/06/16 13:42 Dose: 50 mg - Labs Labs: 11/06/16 05:20 11/06/16 05:20 PT 11.3 Seconds (9.9-11.8) 11/05/16 16:45 INR 1.05 (0.93-1.08) 11/05/16 16:45 APTT 26.4 Seconds (23.7-30.8) 11/05/16 16:45 - Constitutional Appears: Non-toxic, No Acute Distress - Head Exam Head Exam: ATRAUMATIC, NORMOCEPHALIC - Eye Exam Eye Exam: EOMI, Normal appearance, PERRL - ENT Exam ENT Exam: Mucous Membranes Moist - Neck Exam Neck Exam: Full ROM, Normal Inspection. absent: Meningismus - Respiratory Exam Respiratory Exam: Clear to Ausculation Bilateral, NORMAL BREATHING PATTERN. absent: Chest Wall Tenderness, Rales, Rhonchi, Wheezes - Cardiovascular Exam Cardiovascular Exam: REGULAR RHYTHM, +S1, +S2 - GI/Abdominal Exam GI & Abdominal Exam: Soft, Normal Bowel Sounds. absent: Distended, Firm, Guarding, Rigid, Tenderness, Pulsatile Mass - Extremities Exam Extremities Exam: Full ROM, Normal Inspection. absent: Calf Tenderness, Joint Swelling, Pedal Edema, Tenderness - Back Exam Back Exam: Full ROM, NORMAL INSPECTION. absent: CVA tenderness (L), CVA tenderness (R), paraspinal tenderness Additional comments: Mild lumbosacral tenderness to palpation, over region of chronic pain. No echymoses - Neurological Exam Neurological Exam: Alert, Awake, CN II-XII Intact, Normal Gait, Oriented x3 Neuro motor strength exam: Left Upper Extremity: 5, Right Upper Extremity: 5, Left Lower Extremity: 5, Right Lower Extremity: 5 - Psychiatric Exam Psychiatric exam: Normal Affect, Normal Mood - Skin Skin Exam: Dry, Intact, Normal Color. absent: Abrasion, Erythema, Mottled <Judah,Lilian - Last Filed: 11/06/16 18:58> Objective - Vital Signs/Intake and Output Vital Signs (last 24 hours): Temp Pulse Resp BP Pulse Ox 98.2 F 64 18 141/90 99 11/06/16 16:00 11/06/16 18:06 11/06/16 16:00 11/06/16 18:06 11/06/16 16:00 Intake and Output: 11/06/16 11/06/16 06:59 18:59 Intake Total 780 Balance 780 - Medications Medications: Current Medications Acetaminophen (Tylenol 325mg Tab) 650 mg PO Q6H PRN PRN Reason: Pain, moderate (4-7) Last Admin: 11/06/16 18:46 Dose: 650 mg Bupropion HCl (Wellbutrin Xl) 150 mg PO DAILY [facility] Last Admin: 11/06/16 09:15 Dose: 150 mg Docusate Sodium (Colace) 100 mg PO BID [facility] Last Admin: 11/06/16 18:06 Dose: 100 mg Famotidine (Pepcid) 40 mg PO HS [facility] Folic Acid (Folic Acid) 1 mg PO DAILY [facility] Last Admin: 11/06/16 09:15 Dose: 1 mg Ceftriaxone Sodium (Rocephin 1 Gram Ivpb) 1 gm in 100 mls @ 100 mls/hr IVPB DAILY [facility] PRN Reason: Protocol Last Admin: 11/06/16 09:18 Dose: 100 mls/hr Losartan Potassium (Cozaar) 50 mg PO DAILY [facility] Last Admin: 11/06/16 09:17 Dose: 50 mg Metoprolol Tartrate (Lopressor) 25 mg PO BID [facility] Last Admin: 11/06/16 18:06 Dose: 25 mg Olanzapine (Zyprexa) 10 mg PO HS [facility] PRN Reason: Protocol Polyethylene Glycol (Miralax) 17 gm PO BID [facility] Last Admin: 11/06/16 18:05 Dose: 17 gm Tramadol HCl (Ultram) 50 mg PO TID [facility] Last Admin: 11/06/16 18:07 Dose: Not Given - Labs Labs: 11/06/16 05:20 11/06/16 05:20 PT 11.3 Seconds (9.9-11.8) 11/05/16 16:45 INR 1.05 (0.93-1.08) 11/05/16 16:45 APTT 26.4 Seconds (23.7-30.8) 11/05/16 16:45 Attending/Attestation - Attestation I have personally seen and examined this patient.: Yes I have fully participated in the care of the patient.: Yes I have reviewed all pertinent clinical information, including history, physical exam and plan: Yes Notes (Text): 11/06/16 18:54 Findings as noted above. Imp: Fall;no clinical evidence of any injury. Chronic Low back pain. Plan: As noted,findings reported to PMD,further follow up as per PMD.
[2016-11-06 18:13] VITALS: BP 141/90; PULSE 64
--- NOTE | 2016-11-06 21:43 | CON ---
DATE: HISTORY OF PRESENT ILLNESS: The patient is a 75-year-old female along with debilitating history of schizoaffective disorder versus schizophrenia. The patient had history of being admitted to the Psychiatry Inpatient Unit, most recent was in 11/2015. The patient has history of somatic delusion, has history of delusions, which were affecting her daily functionality. At this time, the patient was admitted on the medical site for evaluation of abdominal pain. Urinalysis showed leukocyte esterase and , rule out urinary tract infection. Psychiatric consult was called for evaluation of medications. The patient has long history of psychiatric illnesses and medication management. The patient was seen and examined today. The patient presented to be anxious and upper extremity tremor. The patient said that she came here for abdominal pain. Right now, she feels pain in her stomach. We tried to educate the patient about the potential diagnosis. The patient verbalized understanding. The patient said that she is not depressed. The patient denies hearing voices or seeing thing. The patient reports that things are going well at home. Expressed no concerns. The patient reports that she was compliant with her medications and her outpatient psychiatrist is Dr. Matthew Chilel. Last time, the patient had an appointment with Dr. Chilel was 11/02/2016. The patient also reports that she is taking Zyprexa. The patient reports that she fills her medications in [facility]. This curriculum writer gave a call to [facility], , medications confirmed. The patient was on Zyprexa 10 mg at the nighttime. The patient still has 2 refills left. Prescriber had filled on 10/27/2016. The patient also was on Wellbutrin, which was filled in 08/23/2016 150 mg extended release daily and pharmacist is not sure, if the patient was filling that medication with other pharmacist. The rest is simvastatin, folic acid, aspirin, docusate, Augmentin, Flonase, Zyrtec, Pepcid, and losartan, as well as, metoprolol. The patient has long history of schizoaffective disorder, somatic delusion, has history of feeling that she has Syphilis and she is dying from that and it was last year, all Infectious Disease potential diagnosis were ruled out. Please see previous note for more details and information. The patient has power of admitted attorneys. Her daughter is Letecia Puri. MEDICATIONS: Reviewed. The patient is on Tylenol 325, Wellbutrin 150 mg daily, which was resumed by Dr. Amaya. The patient was started on antibiotics, ceftriaxone, Colace, Pepcid, folic acid, lactulose, Cozaar, Lopressor, Zyprexa 10 mg at the nighttime was resumed by medical team, and Ultram 50 mg 3 times a day schedule. PHYSICAL EXAMINATION VITAL SIGNS: I tried to review the vital signs. Temperature 98, pulse 67, blood pressure 142/70, respirations 21, and oxygen saturation 95%. MENTAL STATUS EXAMINATION: The patient presented to be alert, mildly anxious, childlike demeanor, upper extremity tremor seems to be related to anxiety. Intermittent eye contact. Speech was soft. The patient has dentures, as well as have some lips making movement, thought most likely it is related to the dentures, what the patient is wearing. Mood described "I'm okay." Affect was tearful and anxious. Thought process seems to be goal directed. The patient denies visual, auditory, or tactile hallucinations. Denied paranoid ideations. The patient has history of somatic delusions, but none were identified at the present moment. Insight and judgment seems to be fair. Impulses are well controlled. LABORATORY DATA: Reviewed. Hematology within normal limits. Coagulation within normal limits. Chemistry is within normal limits. Urinalysis shows protein trace and leukocyte esterase moderate. IMPRESSION: As per history. The patient has history of schizoaffective disorder versus schizophrenia, multiple admissions into the psychiatric inpatient unit. The patient has multiple medical issues. At present moment, seems to have urinary tract infection. PLAN: Continue current management. This curriculum writer called to the pharmacy and all medications were confirmed. The patient was filling medication in [facility]. Olanzapine, the patient has 3 refills left. Wellbutrin was started by medical team. No objection over that. The patient also was going through the [facility] and the patient reported that she takes medications there. We tried to recommend social work evaluation and family involvement and the patient has power of admitted attorneys of her daughter. We will follow up on this patient, otherwise accordingly. This curriculum writer cannot rule out the patient might need to have psychiatric admission, but we will follow up on this patient daily and figure out, if the patient meets criteria. Case will be discussed with Dr. Amaya. Should you have any questions, give me a call back. Thank you so much. Geovanna Gallardo MD
--- NOTE | 2016-11-07 08:06 | CP.PCM.PCO ---
Physician Communication Note - Physician Communication Note Physician Communication Note: pt was d/c
--- NOTE | 2016-11-14 01:31 | DS ---
CHIEF COMPLAINT: Lower abdominal pain. HISTORY OF PRESENT ILLNESS: The patient is a 75-year-old lady, my private patient, who was admitted on 11/05/2016 for lower abdominal pain, urinary problem. We did a CAT scan of the abdomen and pelvis. Psychiatric consult was called, Dr. Geovanna Gallardo, and she saw the patient. Lumbar spine x-ray was done. History of fall in the hospital, seen by Dr. Lilian So, house physician, found no new injury. Seen by Dr. Pernell Aaron to rule out early appendicitis. Everybody cleared the patient, discharged home, to follow up as outpatient. PAST MEDICAL HISTORY: As above, hypertension, hypercholesteremia, COPD, pneumonia, dizziness, migraine, renal disorder, schizophrenia, and bipolar. FAMILY HISTORY: Father and mother, noncontributory. HABITS: No smoking, no drugs, no ethanol. ALLERGIES: THE PATIENT IS ALLERGIC TO CLONAZEPAM, RISPERIDONE, TOMATOES. MEDICATIONS: Home medications reviewed by me. REVIEW OF SYSTEMS: The patient seen and examined on the bedside. Looking comfortable. On 11/06/2016, no nausea, vomiting, or diarrhea. No hematuria or hematochezia. No swelling of the legs. No chest pain, no palpitations. No headache or dizziness. PHYSICAL EXAMINATION: VITAL SIGNS: Temperature 98.2, pulse 64, blood pressure 140/90, and respiratory rate 18. HEENT: Head is normocephalic, atraumatic. Eyes, PERRLA. Extraocular muscles are intact. Conjunctivae are clear. Nose is patent. Mucous membranes moist. NECK: Supple. No carotid bruits. No JVD or thyromegaly. CHEST: Bilateral symmetrical. HEART: S1 and S2 positive. LUNGS: Clear to auscultation. ABDOMEN: Soft. Bowel sounds positive. No organomegaly. EXTREMITIES: No edema. No cyanosis. NEUROLOGIC The patient is awake and alert. Moving all 4 extremities. No focal deficit. LABORATORY DATA: White blood cells 5.9, hemoglobin 13.5, hematocrit 41.7, and platelets 175. Sodium 132, potassium 4.0, BUN 21, creatinine 0.9. Liver function tests are within normal limits. Urine is protein and leukocyte esterase positive. ASSESSMENT AND PLAN: The patient is a 75-year-old lady with proteinuria, urinary tract infection, seen by Dr. Yenni Gallardo, psychiatrist, and Dr. Pernell Aaron, surgeon, for early appendicitis and constipation. No surgery, but advised MiraLax and lactulose. The patient has history of repeatedly urinary tract infections, schizophrenia, hypertension, chronic obstructive pulmonary disease, bronchitis, dizziness, migraine, history of multiple falls, anxiety. We admitted the patient, gave antibiotics, improved, status post fall, no injury. Discharged home, to follow up as outpatient. Zulema Amaya MD
--- NOTE | 2016-11-14 02:21 | HP ---
The patient is a 75 years old female. CHIEF COMPLAINT: Abdominal pain. HISTORY OF PRESENT ILLNESS: The patient is a 75-year-old, my private patient was seen in the emergency room on 11/05/2016, came with complaining of abdominal pain for the past couple of days. She has left lower quadrant abdominal pain radiating to the left upper quadrant. The patient noticed some dysuria, but denies any fever, nausea, vomiting, diarrhea. No headache, no dizziness.. PAST MEDICAL HISTORY: Menopause, hypertension, bronchitis, COPD, pneumonia, migraine, dizziness, falls, urine incontinence, prolapsed bladder, anxiety, bipolar disorder, schizophrenia, history of right breast biopsy which was benign, history of fracture of the humerus. FAMILY HISTORY: Father and mother noncontributory. HABITS: Former smoker, now quit and no drugs, no ethanol. ALLERGIES: THE PATIENT IS ALLERGIC WITH CLONAZEPAM, RISPERIDONE, TOMATOES, HOME MEDICATIONS: Colace, Pepcid, Lopressor, Zyprexa. REVIEW OF SYSTEMS: The patient is seen and examined on the bedside, looking comfortable, complaining about lower abdominal pain, burning with urination. No headache, no dizziness, no shortness of breath, no chest pain. PHYSICAL EXAMINATION VITAL SIGNS: Temperature 98.1, pulse 60, respiratory rater 90, blood pressure 142/95. HEENT: Head, normocephalic, atraumatic. Eyes, PERRLA. Extraocular muscles intact. Conjunctivae clear. Nose patent. Mucous membranes moist. NECK: Supple. No carotid bruits, JVD, or thyromegaly. CHEST: Bilaterally symmetrical. HEART: S1, S2 positive. LUNGS: Clear to auscultation. ABDOMEN: Soft. Bowel sounds positive. No organomegaly. EXTREMITIES: No edema, no cyanosis. NEUROLOGICAL: The patient is awake, alert. Moving all 4 extremities. No focal deficit. LABORATORY DATA: White blood cells is 6.9, hemoglobin 14.6, hematocrit 43.9, platelets 188. Sodium 143, potassium 4.1, BUN 17, creatinine 0.8, glucose 92. ASSESSMENT AND PLAN: The patient is a 75-year-old lady came with lower abdominal pain. We did CAT scan, showed mild appendicular dilatation, rule out appendicitis, maybe early appendicitis, pulmonary nodule, need followup, history of hypertension, hypercholesterolemia, noncompliance, has multiple psychiatric admissions, hypertension, chronic obstructive pulmonary disease, history of pneumonia, dizziness, migraine, fall, multiple times urinary tract infection, anxiety, now came with urinary tract infection symptoms. GI/DVT prophylaxis, repeat labs, lumbar spine x-ray done shows lumbar compression fracture, which looks like chronic, seen by Dr. Geronimo. Admitted, started antibiotics. We will follow up. Zulema Amaya MD
== END 2016-11-06 19:09 | disposition home or self-care (01) ==
LOC: ED 15:25 → ERH 20:16 → 3RNO 22:23 → INTOOBSV 11-06 07:08 → OBSVTOIN 11-06 07:08
PROVIDERS: ADMIT Internal Medicine; ATTEND Internal Medicine
DX: N30.90 Cystitis, unspecified without hematuria (principal); R10.32 Left lower quadrant pain; K59.09 Other constipation; F25.9 Schizoaffective disorder, unspecified; I10 Essential (primary) hypertension; G89.29 Other chronic pain; M54.5 Low back pain; J44.9 Chronic obstructive pulmonary disease, unspecified; F31.9 Bipolar disorder, unspecified; Z91.81 History of falling; Z87.891 Personal history of nicotine dependence
CPT/HCPCS: 36415; 72100; 74177; 80053; 81001; 83690; 84703; 85025; 85610; 85730; 87086; 96374; 99285; G0378; J0696; J1885; J7040; Q9967

== ENCOUNTER 2017-03-24 12:15 | Emergency (ER) | payer MEDICARE, OTHER ==
[2017-03-24 12:15] VITALS: BMI 33.7
[2017-03-24 12:38] VITALS: BP 103/51
[2017-03-24] MEDS ORDERED: Sodium Chloride 0.9% 1,000 ML IV STA (13:03)
[2017-03-24 13:27] LABS: BASO # 0.01 K/mm3 (0.0-2.0); BASO % 0.1 % (0.0-3.0); EOS # 0.1 (0.0-0.7); EOS % 0.6 % (1.5-5.0); GRAN # 6.18 (1.4-6.5); HEMOGLOBIN 14.3 g/dL (12.0-16.0); LYMPH # 1.2 (1.2-3.4); MEAN CORPUSCULAR HEMOGLOBIN 29.4 pg (25.0-35.0); MEAN CORPUSCULAR HGB CONC 31.6 g/dl (31.0-37.0); MEAN PLATELET VOLUME 13.2 fl (7.0-11.0); MONO # 0.5 (0.1-0.6); MONO % 6.3 % (1.0-6.0); RBC 4.87 10^6/uL (3.5-6.1); RED CELL DISTRIBUTION WIDTH 14.4 % (11.5-14.5); WHITE BLOOD COUNT 7.9 10^3/ul (4.5-11.0)
[2017-03-24 13:29] LABS: ALB/GLOB RATIO 1.3 (1.1-1.8); ALBUMIN 4.1 g/dL (3.0-4.8); CALCIUM 9.5 mg/dL (8.4-10.5)
--- NOTE | 2017-03-24 13:36 | ED PDOC ---
Arrival/HPI - General Chief Complaint: Anxiety Time Seen by Provider: 03/24/17 12:28 Historian: Patient - History of Present Illness Narrative History of Present Illness (Text): 03/24/17 13:00 A 76 year old female, whose past medical history includes bipolar disorder, presents to the emergency department complaining of syncopal episode. Patient reports she "blacked out" in the laundry room this morning. States she has been experiencing lightheadedness for few days with associated nausea. Patient has no other complaints at this time. PMD: Dr. Zulema Amaya Past Medical History - Provider Review Nursing Documentation Reviewed: Yes - Infectious Disease Hx of Infectious Diseases: None - Tetanus Immunization Tetanus Immunization: Unknown - Past Medical History Past Medical History: Non-Contributing - Cardiac Hx Cardiac Disorders: Yes Hx Hypertension: Yes - Pulmonary Hx Respiratory Disorders: Yes Hx Bronchitis: Yes Hx Pneumonia: Yes - Neurological Hx Neurological Disorder: Yes Hx Dizziness: Yes Hx Migraine: Yes - HEENT Hx HEENT Disorder: No (wears glasses) - Renal Hx Renal Disorder: No (denies) - Endocrine/Metabolic Hx Endocrine Disorders: No - Hematological/Oncological Hx Blood Disorders: No - Integumentary Hx Dermatological Disorder: Yes (rash, side effect of psych med) - Musculoskeletal/Rheumatological Hx Musculoskeletal Disorders: Yes Hx Arthritis: Yes Hx Back Pain: Yes Hx Falls: Yes Hx Fractures: Yes (left arm) Hx Unsteady Gait: Yes - Gastrointestinal Hx Gastrointestinal Disorders: No - Genitourinary/Gynecological Hx Genitourinary Disorders: Yes Hx Incontinence: Yes Hx Urinary Tract Infection: Yes - Psychiatric Hx Psychophysiologic Disorder: Yes (electroshock therapy) Hx Anxiety: Yes Hx Bipolar Disorder: Yes Hx Depression: Yes Hx Substance Use: No - Past Surgical History Past Surgical History: Non-Contributing - Surgical History Other/Comment: R BREAST sx benign, BLADDER/ fx humerus - Anesthesia Hx Anesthesia: Yes Hx Anesthesia Reactions: No Hx Malignant Hyperthermia: No - Suicidal Assessment Feels Threatened In Home Enviroment: No Family/Social History - Physician Review Nursing Documentation Reviewed: Yes Family/Social History: No Known Family HX Smoking Status: Former Smoker Hx Alcohol Use: No Hx Substance Use: No Hx Substance Use Treatment: No Allergies/Home Meds Allergies/Adverse Reactions: Allergies clonazepam Allergy (Verified 03/24/17 12:19) RASH quetiapine Allergy (Verified 03/24/17 12:19) RASH risperidone Allergy (Verified 03/24/17 12:19) RASH tomato Adverse Reaction (Verified 03/24/17 12:19) RASH Home Medications: Home Meds Medication Instructions Recorded Confirmed Unobtainable 03/24/17 03/24/17 Review of Systems - Review of Systems Constitutional: absent: Other (no recent trauma) Eyes: Normal ENT: Normal Respiratory: Normal Cardiovascular: Syncope Gastrointestinal: Nausea (associated with lightheadedness) Genitourinary Female: Normal Musculoskeletal: Normal Skin: Normal Neurological: Other (lightheadedness). absent: Headache, Dizziness Endocrine: Normal Hemo/Lymphatic: Normal Psychiatric: Normal Physical Exam Vital Signs Reviewed: Yes Vital Signs Temp Pulse Resp BP Pulse Ox 03/24/17 12:37 97.4 F L 58 L 20 103/51 L 94 L Temperature: Afebrile Blood Pressure: Normal Pulse: Regular Respiratory Rate: Normal Appearance: Positive for: Well-Appearing Pain Distress: None Mental Status: Positive for: Alert and Oriented X 3 - Systems Exam Mouth: Present: Dry Respiratory/Chest: Present: Clear to Auscultation, Good Air Exchange. No: Respiratory Distress, Accessory Muscle Use Cardiovascular: Present: Regular Rate and Rhythm, Normal S1, S2. No: Murmurs Abdomen: Present: Tenderness (diffused suprapubic tenderness) Medical Decision Making ED Course and Treatment: 03/24/17 13:03 Impression: 76 year old female with syncopal episode and lightheadedness. Plan: -- Chest X-ray -- IV Fluids -- Urinalysis -- Reassess and disposition Prior Visits: Notes and results from previous visits were reviewed. Patient was last seen in the emergency department on 11/05/2016 for abdominal pain. Patient was admitted. Progress Notes: 03/24/2017 14:35 Chest X-ray IMPRESSION: Mild to moderate vascular congestion. Dictator: Frederic Ziegler MD 03/24/17 14:47 awake alert ambulatory and stable for discharge. - Lab Interpretations Lab Results: 03/24/17 12:28 03/24/17 12:28 Lab Results 03/24/17 12:28: Sodium 146, Potassium 4.3, Chloride 111 H, Carbon Dioxide 21, Anion Gap 19, BUN 29 H, Creatinine 1.4 H, Est GFR ( Amer) 44, Est GFR ( Non-Af Amer) 36, Random Glucose 123 H, Calcium 9.5, Total Bilirubin 0.7, AST 25 , ALT 36, Alkaline Phosphatase 91, Total Protein 7.1, Albumin 4.1, Globulin 3.1 , Albumin/Globulin Ratio 1.3 03/24/17 12:28: WBC 7.9 D, RBC 4.87, Hgb 14.3, Hct 45.3, MCV 93.0, MCH 29.4, MCHC 31.6, RDW 14.4, Plt Count 181, MPV 13.2 H, Gran % 78.0 H, Lymph % (Auto) 15.0 L, Zavala % (Auto) 6.3 H, Eos % (Auto) 0.6 L, Baso % (Auto) 0.1, Gran # 6.18 , Lymph # 1.2, Zavala # 0.5, Eos # 0.1, Baso # 0.01 I have reviewed the lab results: Yes - RAD Interpretation Radiology Orders: 03/24/17 13:03 CHEST PORTABLE [RAD] Stat - Medication Orders Current Medication Orders: Discontinued Medications Sodium Chloride (Sodium Chloride 0.9%) 1,000 mls @ 999 mls/hr IV .Q1H1M STA Stop: 03/24/17 14:03 Last Admin: 03/24/17 13:10 Dose: 999 mls/hr eMAR Start Stop Document 03/24/17 13:10 [email or web address] (Rec: 03/24/17 13:10 [email or web address] [id number]) Intravenous Solution Start Date 03/24/17 Start Time 13:10 End Date 03/24/17 - Scribe Statement The provider has reviewed the documentation as recorded by the Silver Rosales Provider Scribe Attestation: All medical record entries made by the Laniibtanvir were at my direction and personally dictated by me. I have reviewed the chart and agree that the record accurately reflects my personal performance of the history, physical exam, medical decision making, and the department course for this patient. I have also personally directed, reviewed, and agree with the discharge instructions and disposition. Disposition/Present on Arrival - Present on Arrival Any Indicators Present on Arrival: No History of DVT/PE: No History of Uncontrolled Diabetes: No Urinary Catheter: No History of Decub. Ulcer: No History Surgical Site Infection Following: None - Disposition Have Diagnosis and Disposition been Completed?: Yes Diagnosis: Near syncope, Dehydration Disposition: HOME/ ROUTINE Disposition Time: 15:00 Patient Plan: Discharge Condition: STABLE Referrals: Zulema Amaya MD [Primary Care Provider] - Follow up with primary Forms: [employer])
--- NOTE | 2017-03-24 14:37 | RAD ---
HISTORY: cough COMPARISON: No prior. FINDINGS: LUNGS: No active pulmonary disease. PLEURA: No significant pleural effusion identified, no pneumothorax apparent. CARDIOVASCULAR: The heart is normal in size. There is mild to moderate vascular congestion OSSEOUS STRUCTURES: No significant abnormalities. VISUALIZED UPPER ABDOMEN: Normal. OTHER FINDINGS: None. IMPRESSION: Mild to moderate vascular congestion
[2017-03-24 14:46] LABS: URINE BILIRUBIN NEGATIVE (NEGATIVE); URINE BLOOD NEGATIVE (NEGATIVE); URINE GLUCOSE (UA) NEGATIVE (NEGATIVE); URINE LEUKOCYTE ESTERASE TRACE Leu/uL (NEGATIVE); URINE NITRATE NEGATIVE (NEGATIVE); URINE PROTEIN 30 mg/dL (<30 mg/dL); URINE UROBILINOGEN 0.2 E.U./dL (<1 E.U./dL)
[2017-03-24 14:47] LABS: URINE APPEARANCE SL CLOUDY (CLEAR); URINE COLOR YELLOW (YELLOW)
[2017-03-24 14:51] LABS: URINE EPITHELIAL CELLS MANY /hpf (0-5); URINE RBC 0 - 2 /hpf (0-2)
[2017-03-24 14:52] VITALS: PULSE 62; TEMP 98
[2017-03-24 14:52] LABS: URINE BACTERIA FEW (NEG)
[2017-03-24 15:54] VITALS: RESP 19; O2SAT 99
== END 2017-03-24 15:45 | disposition home or self-care (01) ==
LOC: ED 12:15
DX: R55 Syncope and collapse (principal); E86.0 Dehydration
CPT/HCPCS: 71045; 80053; 81001; 85025; 87086; 99283; J7040

== ENCOUNTER 2017-06-22 12:06 | Inpatient (IN) | payer MEDICARE, OTHER ==
[2017-06-22 12:06] VITALS: BMI 33.7
--- NOTE | 2017-06-22 12:29 | ED PDOC ---
Arrival/HPI - General Chief Complaint: Chest Pain Time Seen by Provider: 06/22/17 12:13 Historian: Patient - History of Present Illness Narrative History of Present Illness (Text): 06/22/17 12:20 76 year old female, whose PMH includes schizophrenia and hypertension, who presents to the emergency department complaining of pressure chest pain for the last few weeks. patient reports sob, that is worse when laying down. Patient denies other complaints. 06/22/17 17:42 Time/Duration: > week Symptom Onset: Gradual Symptom Course: Unchanged Quality: Pressure Past Medical History - Provider Review Nursing Documentation Reviewed: Yes - Infectious Disease Hx of Infectious Diseases: None - Tetanus Immunization Tetanus Immunization: Unknown - Past Medical History Past Medical History: Non-Contributing - Cardiac Hx Cardiac Disorders: Yes Hx Hypertension: Yes - Pulmonary Hx Respiratory Disorders: Yes Hx Bronchitis: Yes Hx Pneumonia: Yes - Neurological Hx Neurological Disorder: Yes Hx Dizziness: Yes Hx Migraine: Yes - HEENT Hx HEENT Disorder: No (wears glasses) - Renal Hx Renal Disorder: No (denies) - Endocrine/Metabolic Hx Endocrine Disorders: No - Hematological/Oncological Hx Blood Disorders: No - Integumentary Hx Dermatological Disorder: Yes (rash, side effect of psych med) - Musculoskeletal/Rheumatological Hx Musculoskeletal Disorders: Yes Hx Arthritis: Yes Hx Back Pain: Yes Hx Falls: Yes Hx Fractures: Yes (left arm) Hx Unsteady Gait: Yes - Gastrointestinal Hx Gastrointestinal Disorders: No - Genitourinary/Gynecological Hx Genitourinary Disorders: Yes Hx Incontinence: Yes Hx Urinary Tract Infection: Yes - Psychiatric Hx Psychophysiologic Disorder: Yes (electroshock therapy) Hx Anxiety: Yes Hx Bipolar Disorder: Yes Hx Depression: Yes Hx Substance Use: No - Past Surgical History Past Surgical History: Non-Contributing - Surgical History Other/Comment: R BREAST sx benign, BLADDER/ fx humerus - Anesthesia Hx Anesthesia: Yes Hx Anesthesia Reactions: No Hx Malignant Hyperthermia: No - Suicidal Assessment Feels Threatened In Home Enviroment: No Family/Social History - Physician Review Nursing Documentation Reviewed: Yes Family/Social History: Unknown Family HX Smoking Status: Former Smoker Hx Alcohol Use: No Hx Substance Use: No Hx Substance Use Treatment: No Allergies/Home Meds Allergies/Adverse Reactions: Allergies clonazepam Allergy (Verified 06/22/17 12:10) RASH quetiapine Allergy (Verified 06/22/17 12:10) RASH risperidone Allergy (Verified 06/22/17 12:10) RASH tomato Adverse Reaction (Verified 06/22/17 12:10) RASH Home Medications: Home Meds Medication Instructions Recorded Confirmed Aspirin [Ecotrin] 81 mg PO DAILY 06/22/17 06/22/17 Docusate [Colace] 200 mg PO DAILY 06/22/17 06/22/17 FLUoxetine [Prozac] 10 mg PO DAILY 06/22/17 06/22/17 Famotidine [Pepcid] 40 mg PO HS 06/22/17 06/22/17 Folic Acid 1 mg PO DAILY 06/22/17 06/22/17 Losartan Potassium 50 mg PO DAILY 06/22/17 06/22/17 Metoprolol Tartrate [Lopressor] 25 mg PO BID 06/22/17 06/22/17 Mirabegron [Myrbetriq] 25 mg PO DAILY 06/22/17 06/22/17 Montelukast Sodium [Singulair] 10 mg PO DAILY 06/22/17 06/22/17 OLANZapine [ZyPREXA] 10 mg PO HS 06/22/17 06/22/17 Review of Systems - Physician Review All systems were reviewed & negative as marked: Yes - Review of Systems Constitutional: absent: Fevers Cardiovascular: Chest Pain Gastrointestinal: absent: Abdominal Pain Physical Exam Vital Signs Reviewed: Yes Vital Signs Temp Pulse Resp BP Pulse Ox 06/22/17 16:05 57 L 16 166/78 H 99 06/22/17 14:04 55 L 16 155/60 H 99 06/22/17 13:45 155/81 H 06/22/17 12:06 98.5 F 52 L 20 167/94 H 100 Temperature: Afebrile Blood Pressure: Hypertensive Pulse: Bradycardic Respiratory Rate: Normal Appearance: Positive for: Well-Appearing, Non-Toxic, Comfortable Pain Distress: None Mental Status: Positive for: Alert and Oriented X 3 - Systems Exam Head: Present: Atraumatic, Normocephalic Pupils: Present: PERRL Extroacular Muscles: Present: EOMI Conjunctiva: Present: Normal Mouth: Present: Moist Mucous Membranes Respiratory/Chest: Present: Clear to Auscultation, Decreased Breath Sounds ( bilateral). No: Good Air Exchange, Respiratory Distress, Accessory Muscle Use, Wheezes, Rales, Rhonchi Cardiovascular: Present: Regular Rate and Rhythm, Normal S1, S2. No: Murmurs Abdomen: Present: Normal Bowel Sounds. No: Tenderness, Distention, Peritoneal Signs, Rebound, Guarding Neurological: Present: GCS=15, CN II-XII Intact, Speech Normal Skin: Present: Warm, Dry, Normal Color. No: Rashes Psychiatric: Present: Alert, Oriented x 3, Normal Insight, Normal Concentration Medical Decision Making ED Course and Treatment: 06/22/17 12:29 Impression: 76 year old female with diminished breath sound bilaterally complaining of pressure chest pain that is worse when laying down. Plan: -- Aspirin -- EKG -- Labs -- Chest X-ray -- Reassess and disposition Progress Notes: EKG: Ordered, reviewed, and independently interpreted the EKG. Rate : 55 BPM Rhythm : bradycardia Interpretation : No ST-segment elevations or depressions, no T-wave inversions, normal intervals. Comparison : No previous EKG for comparison. 06/22/17 14:02 Chest X-ray reviewed by radiologist, shows: LUNGS: No active pulmonary disease. PLEURA: No significant pleural effusion identified, no pneumothorax apparent. CARDIOVASCULAR: Mild cardiomegaly. Mild vascular congestion OSSEOUS STRUCTURES: No significant abnormalities. VISUALIZED UPPER ABDOMEN: Normal. OTHER FINDINGS: None. IMPRESSION: Mild cardiomegaly. Mild vascular congestion 06/22/17 17:41 xr shows pulm vasc congestion elevated bnp. discussed withsisi sanchez .accepts for admission - Lab Interpretations Lab Results: 06/22/17 12:30 06/22/17 12:30 Lab Results 06/22/17 12:30: Sodium 142, Potassium 4.2, Chloride 106, Carbon Dioxide 26, Anion Gap 14, BUN 16, Creatinine 0.8, Est GFR ( Amer) > 60, Est GFR (Non- Af Amer) > 60, Random Glucose 108, Calcium 8.7, Magnesium 1.9, Total Bilirubin 0.5, AST 41 H D, ALT 62 H, Alkaline Phosphatase 84, Lactate Dehydrogenase 564, Total Creatine Kinase 46, Troponin I < 0.01, NT-Pro-B Natriuret Pep 2420 H, Total Protein 5.8, Albumin 3.4, Globulin 2.4, Albumin/Globulin Ratio 1.4 06/22/17 12:30: PT 12.6 H, INR 1.09 H, APTT 29.6 06/22/17 12:30: WBC 9.2, RBC 4.20, Hgb 12.1 D, Hct 38.5, MCV 91.7, MCH 28.8, MCHC 31.4, RDW 14.4, Plt Count 192, MPV 12.3 H, Gran % 77.5 H, Lymph % (Auto) 14.0 L, [place] % (Auto) 7.3 H, Eos % (Auto) 1.1 L, Baso % (Auto) 0.1, Gran # 7.17 H, Lymph # (Auto) 1.3, [place] # (Auto) 0.7 H, Eos # (Auto) 0.1, Baso # (Auto) 0.01 I have reviewed the lab results: Yes - RAD Interpretation Radiology Orders: 06/22/17 12:24 CHEST PORTABLE [RAD] Stat Respiratory Scientist: Radiologist - EKG Interpretation Interpreted by ED Physician: Yes Type: 12 lead EKG - Medication Orders Current Medication Orders: Discontinued Medications Aspirin (Aspirin) 325 mg PO STAT STA Stop: 06/22/17 12:24 Last Admin: 06/22/17 12:32 Dose: 325 mg Furosemide (Lasix) 40 mg IVP STAT STA Stop: 06/22/17 13:03 Last Admin: 06/22/17 13:45 Dose: 40 mg MAR Blood Pressure Document 06/22/17 13:45 SRE (Rec: 06/22/17 13:48 SRE [id number]) Blood Pressure Blood Pressure (100/60-150/90) 155/81 IVP Administration Document 06/22/17 13:45 SRE (Rec: 06/22/17 13:48 SRE [id number]) Charges for Administration # of IVP Administrations 1 - Scribe Statement The provider has reviewed the documentation as recorded by the [place] Provider Scribe Attestation: All medical record entries made by the Scrib[employer]vir were at my direction and personally dictated by me. I have reviewed the chart and agree that the record accurately reflects my personal performance of the history, physical exam, medical decision making, and the department course for this patient. I have also personally directed, reviewed, and agree with the discharge instructions and disposition. Disposition/Present on Arrival - Present on Arrival Any Indicators Present on Arrival: No History of DVT/PE: No History of Uncontrolled Diabetes: No Urinary Catheter: No History of Decub. Ulcer: No History Surgical Site Infection Following: None - Disposition Have Diagnosis and Disposition been Completed?: Yes Diagnosis: CHF (congestive heart failure), Chest pain Disposition: HOSPITALIZED Disposition Time: 01:00 Patient Problems: Current Active Problems Problem Status Onset CHF (congestive heart failure) Acute Chest pain Acute Condition: FAIR
[2017-06-22 12:38] LABS: BASO # 0.01 K/mm3 (0.0-2.0); BASO % 0.1 % (0.0-3.0); EOS # 0.1 (0.0-0.7); EOS % 1.1 % (1.5-5.0); GRAN # 7.17 (1.4-6.5); GRAN % 77.5 % (50.0-68.0); HEMOGLOBIN 12.1 g/dL (12.0-16.0); LYMPH # 1.3 (1.2-3.4); MEAN CELL VOLUME 91.7 fl (80.0-105.0); MEAN CORPUSCULAR HEMOGLOBIN 28.8 pg (25.0-35.0); MEAN CORPUSCULAR HGB CONC 31.4 g/dl (31.0-37.0); MEAN PLATELET VOLUME 12.3 fl (7.0-11.0); MONO # 0.7 (0.1-0.6); MONO % 7.3 % (1.0-6.0); RBC 4.2 10^6/uL (3.5-6.1); RED CELL DISTRIBUTION WIDTH 14.4 % (11.5-14.5); WHITE BLOOD COUNT 9.2 10^3/ul (4.5-11.0)
[2017-06-22 12:49] LABS: ALB/GLOB RATIO 1.4 (1.1-1.8); ALBUMIN 3.4 g/dL (3.0-4.8); ALT/SGPT 62 U/L (7-56); AST/SGOT 41 U/L (14-36); BLOOD UREA NITROGEN 16 mg/dL (7-21); CALCIUM 8.7 mg/dL (8.4-10.5); GFR AFRICAN-AMERICAN > 60; GFR NON-AFRICAN AMERICAN > 60
[2017-06-22 12:50] LABS: INR 1.09 (0.93-1.08); PARTIAL THROMBOPLASTIN TIME 29.6 Seconds (25.1-36.5); PROTHROMBIN TIME 12.6 SECONDS (9.4-12.5)
--- NOTE | 2017-06-22 12:54 | RAD ---
HISTORY: cp COMPARISON: 03/24/2017 FINDINGS: LUNGS: No active pulmonary disease. PLEURA: No significant pleural effusion identified, no pneumothorax apparent. CARDIOVASCULAR: Mild cardiomegaly. Mild vascular congestion OSSEOUS STRUCTURES: No significant abnormalities. VISUALIZED UPPER ABDOMEN: Normal. OTHER FINDINGS: None. IMPRESSION: Mild cardiomegaly. Mild vascular congestion
[2017-06-22 13:00] LABS: B-TYPE NATRIURETIC PEPTIDE 2420 pg/mL (0-450); TROPONIN I < 0.01 ng/mL
[2017-06-22 15:30] LABS: URINE BILIRUBIN NEGATIVE (NEGATIVE); URINE BLOOD NEGATIVE (NEGATIVE); URINE GLUCOSE (UA) NEGATIVE (NEGATIVE); URINE LEUKOCYTE ESTERASE TRACE Leu/uL (NEGATIVE); URINE PROTEIN NEGATIVE mg/dL (<30 mg/dL); URINE UROBILINOGEN 0.2 E.U./dL (<1 E.U./dL)
[2017-06-22 15:33] LABS: URINE APPEARANCE CLEAR (CLEAR); URINE COLOR YELLOW (YELLOW)
[2017-06-22 15:44] LABS: URINE EPITHELIAL CELLS 0 - 2 /hpf (0-5); URINE RBC NEGATIVE /hpf (0-2); URINE WBC 0 - 2 /hpf (0-6)
[2017-06-22 22:41] LABS: HDL CHOLESTEROL 46 mg/dL (29-60)
[2017-06-22 22:52] LABS: LDL CHOLESTEROL 69 mg/dL (0-129)
[2017-06-22 22:53] LABS: TROPONIN I < 0.01 ng/mL
[2017-06-23 07:07] LABS: BASO # 0.01 K/mm3 (0.0-2.0); BASO % 0.2 % (0.0-3.0); EOS # 0.1 (0.0-0.7); EOS % 1.9 % (1.5-5.0); GRAN # 4.22 (1.4-6.5); GRAN % 67.4 % (50.0-68.0); HEMOGLOBIN 11.8 g/dL (12.0-16.0); LYMPH # 1.4 (1.2-3.4); MEAN CELL VOLUME 92.3 fl (80.0-105.0); MEAN CORPUSCULAR HEMOGLOBIN 28.3 pg (25.0-35.0); MEAN CORPUSCULAR HGB CONC 30.6 g/dl (31.0-37.0); MEAN PLATELET VOLUME 12.1 fl (7.0-11.0); MONO # 0.5 (0.1-0.6); MONO % 8.5 % (1.0-6.0); RBC 4.17 10^6/uL (3.5-6.1); RED CELL DISTRIBUTION WIDTH 14.7 % (11.5-14.5); WHITE BLOOD COUNT 6.3 10^3/ul (4.5-11.0)
--- NOTE | 2017-06-23 07:09 | CON ---
DATE: REASON FOR CONSULTATION: Cardiac evaluation, rule out congestive heart failure, rule out underlying coronary artery disease. BRIEF CLINICAL HISTORY: This is a 76-year-old female with past medical history significant for schizophrenia, hypertension, presented to the emergency room complaining of shortness of breath and chest pain on coughing. Denies any chest pain, dyspnea on exertion, or chest pain on exertion. PAST MEDICAL HISTORY: Significant for schizophrenia; bipolar disorder; chest pain, atypical; tenderness in the chest. Previous cardiac workups were negative. Significant for hypertension, hyperlipidemia. PREVIOUS CARDIAC WORKUP: As follows: Patient had a cardiac catheterization on 02/23/2005 that shows normal ejection fraction, right coronary artery 30% stenosis, 30% to 40% stenosis distal portion, circumflex essentially free of significant disease. Had a cardiac catheterization on . Patient later on repeated stress test on 01/18/2015 that was positive but show some reversible ischemia versus breast attenuation, but patient refused cardiac catheterization. SOCIAL HISTORY: Denies smoking. Denies any history of alcohol abuse. CURRENT MEDICATION: Patient is on Wellbutrin, aspirin, Xanax, acetaminophen, Colace, Pepcid, folic acid, Lopressor, Zyprexa. REVIEW OF SYSTEMS: As per HPI. PHYSICAL EXAMINATION: As follows: VITAL SIGNS: Temperature afebrile, heart rate 52, blood pressure 162/86. HEENT: PERRLA. Extraocular muscles intact. NECK: Supple. No carotid bruits or thyromegaly. CHEST: Clear to auscultation. HEART: S1 and S2 regular. ABDOMEN: Soft. EXTREMITIES: Clubbing and cyanosis negative. LABORATORY DATA: WBC 9.2, hemoglobin 12.1, hematocrit 38.5, platelet count 192. Chemistry shows sodium 140, potassium 4.2, chloride 106, carbon dioxide , anion gap of 14, BUN 16, creatinine 0.6. Troponin 0.01, negative. BNP 2420. IMPRESSION: Hypertension, hyperlipidemia, bipolar disorder, schizophrenia. Last catheterization in 2004, nonobstructive coronary artery disease. Repeated stress test in 2014, suspicious ischemia versus breast attenuation. Catheterization, however, patient refused. Mild mitral regurgitation, tricuspid regurgitation, preserved left ventricular function by echo. RECOMMENDATION: We will repeat echo to assess LV function. Follow up CPK and troponin, Lovenox, lipid profile, TSH, hemoglobin A1c. Further recommendations depending on hospital course. We will follow with you. Thank you, Dr. Amaya, for providing us the opportunity in taking care of the patient, Karolina Puri. Elena Sanchez MD
[2017-06-23 07:25] LABS: IRON 41 ug/dL (45-180)
[2017-06-23 07:39] LABS: % IRON SATURATION 13 % (20-55); TOTAL IRON BINDING CAPACITY 308 ug/dL (265-497)
[2017-06-23 07:44] LABS: TROPONIN I < 0.01 ng/mL
[2017-06-23 08:05] LABS: ALB/GLOB RATIO 1.2 (1.1-1.8); ALBUMIN 3.3 g/dL (3.0-4.8); ALT/SGPT 55 U/L (7-56); AST/SGOT 38 U/L (14-36); BLOOD UREA NITROGEN 19 mg/dL (7-21); CALCIUM 8.3 mg/dL (8.4-10.5); GFR AFRICAN-AMERICAN > 60; GFR NON-AFRICAN AMERICAN > 60; HDL CHOLESTEROL 41 mg/dL (29-60)
[2017-06-23 08:15] LABS: LDL CHOLESTEROL 68 mg/dL (0-129)
--- NOTE | 2017-06-23 09:30 | CARD ---
APPROVED REPORT EKG Measurement Heart [id number] ND 140P42 [id number] <Conclusion> Sinus bradycardia NSSTW changes No change
[2017-06-23] MEDS: Enoxaparin 40 mg Syringe SC SCH (10:31)
[2017-06-23] MEDS: MIRABEGRON 25 MG PO SCH (10:51)
[2017-06-23 12:57] LABS: FOLATE > 20.0 ng/mL
--- NOTE | 2017-06-23 21:39 | HP ---
CHIEF COMPLAINT: Chest pain. HISTORY OF PRESENT ILLNESS: Ms. Karolina Puri is 76-year-old female with past medical history of schizophrenia, hypertension, came to the emergency room complaining of pressure in the chest. For last few hours, the patient reports shortness of breath that is worsening when he is laying down. The patient denies fever, chills. No nausea, vomiting or diarrhea. No hematuria or hematochezia. No swelling of the legs. No chest pain. No palpitation. Actually at that moment, the patient was in the [facility]. The [facility] called 911 and sent the patient to [facility] Emergency Room. PAST MEDICAL HISTORY: Hypertension, bronchitis, pneumonia, dizziness, migraine, arthritis, back pain, falls, left arm fracture, urinary incontinence, repeated UTI, schizophrenia, history of electric shock therapy, anxiety, depression and history of right breast surgery. FAMILY HISTORY: Father and mother noncontributory. HABITS: Former smoker, now no smoking, no drugs, no ethanol. ALLERGIES: THE PATIENT IS ALLERGIC TO CLONAZEPAM, RISPERIDONE, TOMATOES. HOME MEDICATIONS: Aspirin, Colace, Prozac, Pepcid, folic acid, losartan, Lopressor, Singulair, Zyprexa. REVIEW OF SYSTEMS: The patient seen and examined at the bedside in her room in the telemetry. According to her, chest pain is now better. Her shortness of breath is better. No fever. No chills. Now complaining about lower abdominal pain. No hematuria or hematochezia. No swelling of the legs. No headache. No dizziness. PHYSICAL EXAMINATION: GENERAL: Temperature 98.3, pulse 57, blood pressure 115/76, respiratory rate 18. HEENT: Head: Normocephalic and atraumatic. Eyes: PERRLA. Extraocular muscles intact. Conjunctivae clear. Nose patent. Mucous membranes moist. NECK: Supple. No carotid bruit. No JVD or thyromegaly. CHEST: Bilaterally symmetrical. HEART: S1 and S2 positive. LUNGS: Clear to auscultation. ABDOMEN: Soft. Bowel sounds present. No organomegaly. EXTREMITIES: No edema. No cyanosis. NEUROLOGIC: Patient is awake, alert. Moving all four extremities. No focal deficit. LABORATORY DATA: White blood cell 6.2, hemoglobin 11.8, hematocrit 38.5, platelets 173. Sodium 142, potassium 3.8, BUN 19, creatinine 0.9, calcium 8.3, phosphorus 5, iron 41. AST 41, ALT 52. ASSESSMENT AND PLAN: Ms. Karolina Puri is a 76-year-old lady with anemia, hypocalcemia, hyperphosphatemia, iron deficiency, abnormal liver function test, rule out congestive heart failure, BNP is high. Did three sets of troponin less than 0.01. Leukocyte esterase positive, rule out urinary tract infection, history of schizophrenia, hypertension, hypercholesterolemia, bipolar, last catheterization was in 2004, nonobstructive coronary artery disease. Repeat stress test in 2014, suspicious ischemia versus breast attenuation. Catheterization, patient refused. Appreciated Dr. Sanchez's note. Continue further treatment. Repeat labs. We will followup. Zulema Amaya MD
--- NOTE | 2017-06-23 22:54 | CON ---
DATE: 06/23/2017 REFERRING PHYSICIAN: Zulema Amaya MD. REASON FOR CONSULTATION: Cough and shortness of breath and may have sleep apnea syndrome. HISTORY OF PRESENT ILLNESS: This is a 76-year-old female with past medical history significant for bipolar disorder, hypertension, chronic lung disease, migraine headache, low back pain, major depression. Had a ECT therapy in the remote past, history of breast surgery, comes in with some nonspecific chest pain, was short of breath. No nausea, vomiting, diarrhea, leg swelling. Admit to have snoring nighttime, daytime sleepy and tired. PAST MEDICAL HISTORY: As per history present illness. ALLERGIES CLONAZEPAM, RISPERIDONE, ALSO SHE IS ALLERGIC TO SEROQUEL. FAMILY HISTORY: No significant cardiopulmonary disease reported. SOCIAL HISTORY Stopped smoking many years ago. Denies any alcohol use. MEDICATIONS: She is on hydralazine 10 mg four times a day p.r.n., Colace 200 mg daily, Cozaar 100 mg daily, Ecotrin 81 mg daily, ferrous sulfate 324 mg three times a day, folic acid 1 mg daily, Lasix 40 mg daily, metoprolol tartrate 25 mg twice a day, Lovenox 40 mg subcu daily, Myrbetriq 25 mg daily, vitamin D and calcium 1 tablet daily, Pepcid 40 mg at bedtime, Prozac 10 mg daily, Singulair 10 mg daily, Zyprexa 10 mg at bedtime. REVIEW OF SYSTEMS: On and off headache, rhinitis, cough, chest pain. No nausea, no vomiting. No diarrhea. No leg pain or leg swelling. Admit to have snoring, daytime sleepy and tired. PHYSICAL EXAMINATION: VITAL SIGNS: Temperature is 98, heart rate 62, respiratory is 18, blood pressure 139/76, pulse ox 95% on 2 liters cannula. HEENT: Moist mucous membrane. Crowded airway, Mallampati score is IV. NECK: Supple. No JVD. LUNGS: Has A fair airflow with few rhonchi. HEART: S1, S2. ABDOMEN: Soft, nontender. No organomegaly. EXTREMITIES: No edema. NEUROLOGIC: Awake, alert, follows simple commands. SKIN: Has a maculopapular rash. LABORATORY DATA: Hemoglobin 11.8, hematocrit 38.5, WBC 6.3, platelet is 173. INR 1.09. PTT is 30. Sodium 142, potassium 3.8, chloride 103, bicarbonate 30, BUN 19, creatinine 0.9, glucose 78, calcium is 8.3, phosphorus 5, magnesium 2.2. Iron is 41. AST 38, ALT 55, alk phos is 84. LDH is 462. Troponin less than 0.01. Albumin is 3.3. Cholesterol is 131. TSH 3.58. Chest x-ray done in ER shows mild cardiomegaly, mild vascular congestion and was unremarkable. Echocardiogram done and report is pending. IMPRESSION AND PLAN Chronic lung disease, may have sleep apnea syndrome, bipolar disorder, electrolyte imbalance, morbid obesity, hypertension, hyperlipidemia, and a diffuse rash. Pulmonary point of view doing okay. Keep head at 45 degrees. We will add inhaled bronchodilator, add Zyrtec, add Singulair for now. Will need PFT and sleep study upon discharge as outpatient, cardiac workup. Gastroesophageal reflux disease precaution. Thank you and we will follow with you. Elena Gant MD
[2017-06-24] MEDS: Albuterol-Ipratrop 3 mg / 0.5 (3 ml) UD IH SCH ×3 (07:29→21:11)
[2017-06-24] MEDS: Enoxaparin 40 mg Syringe SC SCH (09:37)
[2017-06-24] MEDS: Calcium-Vit D 250 mg-125 Units Tab UD PO SCH (09:38)
[2017-06-24] MEDS: MIRABEGRON 25 MG PO SCH (09:40)
--- NOTE | 2017-06-24 15:06 | PN ---
DATE: SUBJECTIVE: The patient is a 76-year-old female. The patient is seen and examined on the bedside. Looking comfortable. No nausea, vomiting, diarrhea, hematuria or hematochezia. No swelling of the legs. No chest pain. No palpitation. No headache. No dizziness. PHYSICAL EXAMINATION: VITAL SIGNS: Temperature 97.8, pulse 53, blood pressure 148/70, respiratory rate 18. HEENT: Head normocephalic, atraumatic. Eyes PERRLA. Extraocular muscles intact. Conjunctivae clear. Nose patent. Mucous membrane moist. NECK: Supple. No carotid bruit. No JVD or thyromegaly. CHEST: Bilaterally symmetrical. HEART: S1 and S2 positive. LUNGS: Clear to auscultation. ABDOMEN: Soft. Bowel sounds positive. No organomegaly. EXTREMITIES: No edema. No cyanosis. NEUROLOGICAL: The patient is awake and alert. Moving all 4 extremities. No focal deficits. LABORATORY DATA: White blood cells 6.3, hemoglobin 11.8, hematocrit 38.5, platelets 173. Sodium 142, potassium 3.8, BUN 19, creatinine 0.9, calcium 8.3, phosphorus 5, AST 38. MEDICATIONS: Hydralazine, Claritin, Colace, Cozaar, DuoNeb, Ecotrin, Feosol, folic acid, Lasix, DuoNeb, Pepcid, prednisone, Prozac, Singulair. ASSESSMENT AND PLAN: Ms. Karolina Puri is a 76-year-old lady with anemia; hypocalcemia, replaced; iron deficiency, replaced; abnormal liver function test; rule out congestive heart failure; rule out urinary tract infection. Came with chest pain and shortness of breath. Seen by the marketing and outreach coordinator and dairy frozen manager. The patient has history of bipolar disorder, hypertension, chronic lung disease, migraine, low back pain, major depression. Has history of ECT therapy by the psychiatrist. Seen by the marketing and outreach coordinator and dairy frozen manager. Need pulmonary function test and sleep study. Continue present treatment. Repeat labs. We will follow up. Zulema Amaya MD
--- NOTE | 2017-06-24 17:41 | PN ---
DATE: 06/24/2017 PULMONARY PROGRESS NOTE REFERRING PHYSICIAN: Zulema Amaya MD. SUBJECTIVE: She is lying in the bed, getting nebulizer treatment, feels a little better, still has some cough. No nausea, no vomiting, no diarrhea. Still has a rash. PHYSICAL EXAMINATION: GENERAL: In no acute distress. VITAL SIGNS: Temperature is 98, heart rate is 63, respiratory rate is 18, blood pressure 148/70, pulse ox 95% on 2 liters nasal cannula. HEENT: Moist mucous membrane. Crowded airway. Mallampati score is 4. NECK: Supple. No JVD. LUNGS: Have a fair airflow with rhonchi. HEART: S1 and S2. ABDOMEN: Soft and nontender. No organomegaly. EXTREMITIES: There is no edema. NEUROLOGIC: Awake and alert. Follows simple command. SKIN: Still has a maculopapular rash. MEDICATIONS: She is on hydralazine 10 mg four times a day p.r.n., Claritin 10 mg daily, Colace 200 mg daily, Cozaar 100 mg daily, DuoNeb every 6 hours, Ecotrin 81 mg daily, ferrous sulfate 325 mg 3 times a day, folic acid 1 mg daily, Lasix 40 mg daily, metoprolol tartrate 25 mg twice a day, Lovenox 40 mg daily, getting mirabegron 25 mg daily which is not given, vitamin D and calcium one tablet daily, Pepcid 40 mg daily, prednisone 10 mg daily, Prozac 10 mg daily, and Singulair 10 mg daily. LABORATORY DATA: Reviewed. No new lab is available since yesterday. IMPRESSION AND PLAN: Chronic lung disease, may have sleep apnea syndrome, bipolar disorder, electrolyte imbalance, morbid obesity, hypertension, hyperlipidemia, has a rash. Pulmonary point of view, doing okay. Continue bronchodilator, keep head at 45 degrees. Being followed by Cardiology. Gastroesophageal reflux disease precaution. On antihistamine as well as on prednisone. We also need body lotion for dryness. Thank you and we will follow with you. Elena Gant MD
[2017-06-25] MEDS: Albuterol-Ipratrop 3 mg / 0.5 (3 ml) UD IH SCH ×4 (01:48→23:26)
--- NOTE | 2017-06-25 07:25 | CP.PCM.PN ---
Subjective - Date & Time of Evaluation Date of Evaluation: 06/25/17 Time of Evaluation: 06:30 - Subjective Subjective: Seen and examined by me and Dr. Sanchez Reason for consultation and follow up: cardiac evaluation, rule out congestive heart failure and rule out underlying coronary artery disease Subjective: denies chest pain, slight shortness of breath on nasal cannula, otherwise feeling okay Objective - Vital Signs/Intake and Output Vital Signs (last 24 hours): Temp Pulse Resp BP Pulse Ox 98.3 F 54 L 20 144/65 95 06/25/17 06:00 06/25/17 06:00 06/25/17 06:00 06/25/17 06:00 06/25/17 06:00 - Medications Medications: Current Medications Albuterol/Ipratropium (Duoneb 3 Mg/0.5 Mg (3 Ml) Ud) 3 ml IH [id number] [facility] Last Admin: 06/25/17 01:48 Dose: Not Given Aspirin (Ecotrin) 81 mg PO DAILY [facility] Last Admin: 06/24/17 09:38 Dose: 81 mg Calcium/Vitamin D (Oscal-D 250 Mg-125 Units Tab) 1 tab PO DAILY [facility] Last Admin: 06/24/17 09:38 Dose: 1 tab Docusate Sodium (Colace) 200 mg PO DAILY [facility] Last Admin: 06/24/17 09:38 Dose: 200 mg Enoxaparin Sodium (Lovenox) 40 mg SC DAILY [facility] PRN Reason: Protocol Last Admin: 06/24/17 09:37 Dose: 40 mg Famotidine (Pepcid) 40 mg PO HS [facility] Last Admin: 06/24/17 21:13 Dose: 40 mg Ferrous Sulfate (Feosol) 324 mg PO TID [facility] Last Admin: 06/24/17 17:59 Dose: 324 mg Fluoxetine HCl (Prozac) 10 mg PO DAILY [facility] Last Admin: 06/24/17 09:37 Dose: 10 mg Folic Acid (Folic Acid) 1 mg PO DAILY [facility] Last Admin: 06/24/17 09:39 Dose: 1 mg Furosemide (Lasix) 40 mg IV DAILY [facility] Last Admin: 06/24/17 09:39 Dose: 40 mg Hydralazine HCl (Apresoline) 10 mg PO QID PRN PRN Reason: for sbp>170 Loratadine (Claritin) 10 mg PO DAILY [facility] Last Admin: 06/24/17 09:39 Dose: 10 mg Losartan Potassium (Cozaar) 100 mg PO DAILY [facility] Last Admin: 06/24/17 09:39 Dose: 100 mg Metoprolol Tartrate (Lopressor) 25 mg PO BID [facility] Last Admin: 06/24/17 17:59 Dose: 25 mg Montelukast Sodium (Singulair) 10 mg PO DAILY [facility] Last Admin: 06/24/17 09:38 Dose: 10 mg Non-Formulary Medication (Mirabegron [Myrbetriq]) 25 mg PO DAILY [facility] Last Admin: 06/24/17 09:40 Dose: Not Given Prednisone (Prednisone Tab) 10 mg PO DAILY [facility] Last Admin: 06/24/17 09:38 Dose: 10 mg - Labs Labs: 06/23/17 06:00 06/23/17 06:00 PT 12.6 SECONDS (9.4-12.5) H 06/22/17 12:30 INR 1.09 (0.93-1.08) H 06/22/17 12:30 APTT 29.6 Seconds (25.1-36.5) 06/22/17 12:30 - Constitutional Appears: Well, No Acute Distress - Head Exam Head Exam: NORMAL INSPECTION - Eye Exam Eye Exam: Normal appearance Pupil Exam: NORMAL ACCOMODATION - ENT Exam ENT Exam: Mucous Membranes Moist, Normal Exam - Neck Exam Neck Exam: Full ROM - Respiratory Exam Respiratory Exam: Decreased Breath Sounds - Cardiovascular Exam Cardiovascular Exam: REGULAR RHYTHM, +S1, +S2 - GI/Abdominal Exam GI & Abdominal Exam: Soft, Normal Bowel Sounds - Extremities Exam Extremities Exam: Full ROM, Normal Capillary Refill, Normal Inspection - Neurological Exam Neurological Exam: Alert, Awake, Oriented x3 - Psychiatric Exam Psychiatric exam: Normal Affect, Normal Mood - Skin Skin Exam: Dry, Intact, Normal Color, Warm Assessment and Plan - Assessment and Plan (Free Text) Assessment: IMPRESSION: Hypertension, hyperlipidemia,bipolar disorder,schizophrenia, non- obstructive coronary artery disease, last cardiac cath in 2004. Repeat stress test in 2014- suspicious ischemia however refused cardiac catherization at that time. Previous ECHO showed mild mitral and tricuspid regurgitation . Preserved LV function. Plan: Stable cardiac status Heart rate and blood pressure stable Repeat ECHO was done awaiting final results Labs reviewed, Troponin-negative, TSH within normal limits and also Hemoglobin1 AC Continue current treatment Continue current medications Will follow up Plan and treatment discussed with Dr. Sanchez
[2017-06-25] MEDS: MIRABEGRON 25 MG PO SCH (10:51)
[2017-06-25] MEDS: Calcium-Vit D 250 mg-125 Units Tab UD PO SCH (10:51)
[2017-06-25] MEDS: Enoxaparin 40 mg Syringe SC SCH (10:53)
--- NOTE | 2017-06-25 18:18 | CARD ---
APPROVED REPORT EXAM: Two-dimensional and M-mode echocardiogram with Doppler and color Doppler. INDICATION 2D DIMENSIONS IVSd1.1 (0.7-1.1cm)LVDd5.0 (3.9-5.9cm) PWd1.2 (0.7-1.1cm)LVDs3.4 (2.5-4.0cm) FS (%) 32.1 %LVEF (%)59.8 (>50%) M-Mode DIMENSIONS Left Atrium (MM)4.70 (2.5-4.0cm)Aortic Root3.50 (2.2-3.7cm) Aortic Cusp Exc.1.90 (1.5-2.0cm) Aortic Valve AoV Peak Rthhjmgd748.0cm/Kandace Peak GR.15mmHg Mitral Valve MV E Ecdmpwxe677.0cm/sMV E Peak Gr.75mmHgMV A Dbcdjedt47.9cm/s E/A ratio1.5 TDI Lateral E' Peak V9.26cm/sMedial E' Peak V7.25cm/sE/Lateral E'14.0 E/Medial E'17.9 Tricuspid Valve TR Peak Oojtfnvk575hl/sRAP [id number] Peak Gr.49mmHg [id number] LEFT VENTRICLE The left ventricle is normal size. There is borderline to mild concentric left ventricular hypertrophy. The left ventricular function is normal.EF-55-60% There is normal LV segmental wall motion. Transmitral Doppler flow pattern is Grade II-pseudonormal filling dynamics. No left ventricle thrombus noted on this study. There is no ventricular septal defect visualized. There is no left ventricular aneurysm. There is no mass noted in the left ventricle. RIGHT VENTRICLE The right ventricle is mildly to moderately dilated. There is normal right ventricular wall thickness. Systolic function of RV is mildly to moderately reduced. ATRIA The left atrium is mildly dilated. The right atrium is mildly dilated. The interatrial septum is intact with no evidence for an atrial septal defect. AORTIC VALVE The aortic valve is thickened but opens well. There is trace aortic regurgitation. There is no aortic valvular stenosis. There is no aortic valvular vegetation. MITRAL VALVE The mitral valve is thickened but opens well. Mitral annular calcification is mild to moderate. Mitral regurgitation is mild. There is no mitral valve stenosis. There is no evidence of mitral valve prolapse. TRICUSPID VALVE The tricuspid valve leaflets are thickened , but open well. There is moderate tricuspid regurgitation.RVSP-59 mmof Hg. There is moderate pulmonary hypertension. There is no tricuspid valve stenosis. There is no tricuspid valve prolapse or vegetation. PULMONIC VALVE The pulmonic valve is mildly thickened. There is mild pulmonic valvular regurgitation. There is no pulmonic valvular stenosis. GREAT VESSELS The aortic root is normal in size. The ascending aorta is normal in size. The pulmonary artery is normal. The IVC is dilated. PERICARDIAL EFFUSION There is no pleural effusion. There is no pericardial effusion. <Conclusion> The left ventricle is normal size. There is borderline to mild concentric left ventricular hypertrophy. The left ventricular function is normal.EF-55-60% The right ventricle is mildly to moderately dilated. Systolic function of RV is mildly to moderately reduced. There is trace aortic regurgitation. Mitral regurgitation is mild. There is moderate tricuspid regurgitation.RVSP-59 mmof Hg. There is mild pulmonic valvular regurgitation. The IVC is dilated. There is no pericardial effusion. There is moderate pulmonary hypertension.
--- NOTE | 2017-06-26 01:02 | PN ---
DATE: PULMONARY PROGRESS NOTE REFERRING PHYSICIAN: Zulema Amaya MD. SUBJECTIVE: She is lying in the bed, head at 45 degrees. Feels better. No headache. No rhinitis. No nausea, no vomiting. Has some dysuria. No leg pain or leg swelling. Still has some rash. PHYSICAL EXAMINATION: GENERAL: In no acute distress. VITAL SIGNS: Temperature is 98, heart rate 60, respiratory rate is 14, blood pressure 142/67, pulse ox 95% on 2 liters nasal cannula. HEENT: Moist mucous membrane. No ulcer or thrush noted. NECK: Supple. No JVD. LUNGS: Has diffuse scattered rhonchi. HEART: S1 and S2. ABDOMEN: Soft, nontender, nondistended. Mild pubic area tenderness. EXTREMITIES: Has rash. NEUROLOGIC: Awake and alert. Follows simple command. MEDICATIONS: She is on hydralazine 10 mg four times a day p.r.n., Claritin 10 mg daily, Colace 200 mg daily, Cozaar 100 mg daily, DuoNeb every 6 hours, Ecotrin 81 mg daily, ferrous sulfate 325 mg 3 times a day, folic acid 1 mg daily, Lasix 40 mg daily, metoprolol tartrate 25 mg twice a day, Lovenox 40 mg subcutaneous daily, Myrbetriq 25 mg daily, vitamin D and calcium one tablet daily, Pepcid 40 mg daily, prednisone 10 mg daily, Prozac 10 mg daily, Singulair 10 mg daily. LABORATORY DATA: Shows no new lab is available since yesterday. IMPRESSION AND PLAN: Chronic obstructive lung disease, may have sleep apnea syndrome, morbid obesity, hypertension, hyperlipidemia, bipolar disorder, has a rash. Also complaining of urinary incontinence. Continue bronchodilator. Keep head at 45 degrees. Continue steroids, antihistamine. We will get bladder scan to assure the residual, out of bed to chair, physical therapy. Thank you and we will follow with you. Elena Gant MD
[2017-06-26] MEDS: Albuterol-Ipratrop 3 mg / 0.5 (3 ml) UD IH SCH ×4 (02:45→20:29)
--- NOTE | 2017-06-26 05:49 | CP.PCM.PN ---
Subjective - Date & Time of Evaluation Date of Evaluation: 06/26/17 Time of Evaluation: 06:55 - Subjective Subjective: Seen and examined by me and Dr. Sanchez Reason for consult and follow up:Cardiac evaluation and follow up, Hypertension , non-obstructive coronary artery disease Subjective: denies chest pain and shortness of breath. claimed to feel like unable to urinate Objective - Vital Signs/Intake and Output Vital Signs (last 24 hours): Temp Pulse Resp BP Pulse Ox 98.3 F 66 20 119/58 L 95 06/26/17 00:01 06/26/17 01:43 06/26/17 00:01 06/26/17 00:01 06/26/17 00:01 - Medications Medications: Current Medications Albuterol/Ipratropium (Duoneb 3 Mg/0.5 Mg (3 Ml) Ud) 3 ml IH [id number] [facility] Last Admin: 06/25/17 23:26 Dose: Not Given Aspirin (Ecotrin) 81 mg PO DAILY [facility] Last Admin: 06/25/17 10:53 Dose: 81 mg Calcium/Vitamin D (Oscal-D 250 Mg-125 Units Tab) 1 tab PO DAILY [facility] Last Admin: 06/25/17 10:51 Dose: 1 tab Docusate Sodium (Colace) 200 mg PO DAILY [facility] Last Admin: 06/25/17 10:52 Dose: 200 mg Enoxaparin Sodium (Lovenox) 40 mg SC DAILY [facility] PRN Reason: Protocol Last Admin: 06/25/17 10:53 Dose: 40 mg Famotidine (Pepcid) 40 mg PO HS [facility] Last Admin: 06/25/17 21:42 Dose: 40 mg Ferrous Sulfate (Feosol) 324 mg PO TID [facility] Last Admin: 06/25/17 17:45 Dose: 324 mg Fluoxetine HCl (Prozac) 10 mg PO DAILY [facility] Last Admin: 06/25/17 10:53 Dose: 10 mg Folic Acid (Folic Acid) 1 mg PO DAILY [facility] Last Admin: 06/25/17 10:51 Dose: 1 mg Furosemide (Lasix) 40 mg IV DAILY [facility] Last Admin: 06/25/17 10:52 Dose: 40 mg Hydralazine HCl (Apresoline) 10 mg PO QID PRN PRN Reason: for sbp>170 Loratadine (Claritin) 10 mg PO DAILY [facility] Last Admin: 06/25/17 10:51 Dose: 10 mg Losartan Potassium (Cozaar) 100 mg PO DAILY [facility] Last Admin: 06/25/17 10:52 Dose: 100 mg Metoprolol Tartrate (Lopressor) 25 mg PO BID [facility] Last Admin: 06/24/17 17:59 Dose: 25 mg Montelukast Sodium (Singulair) 10 mg PO DAILY [facility] Last Admin: 06/25/17 10:51 Dose: 10 mg Non-Formulary Medication (Mirabegron [Myrbetriq]) 25 mg PO DAILY [facility] Last Admin: 06/25/17 10:51 Dose: Not Given Prednisone (Prednisone Tab) 10 mg PO DAILY [facility] Last Admin: 06/25/17 10:53 Dose: 10 mg - Labs Labs: 06/23/17 06:00 06/23/17 06:00 PT 12.6 SECONDS (9.4-12.5) H 06/22/17 12:30 INR 1.09 (0.93-1.08) H 06/22/17 12:30 APTT 29.6 Seconds (25.1-36.5) 06/22/17 12:30 - Constitutional Appears: Well, No Acute Distress - Head Exam Head Exam: NORMAL INSPECTION - Eye Exam Eye Exam: Normal appearance Pupil Exam: NORMAL ACCOMODATION - ENT Exam ENT Exam: Mucous Membranes Moist, Normal Exam - Respiratory Exam Respiratory Exam: Decreased Breath Sounds, Clear to Ausculation Bilateral - Cardiovascular Exam Cardiovascular Exam: REGULAR RHYTHM, +S1, +S2 - GI/Abdominal Exam GI & Abdominal Exam: Soft, Normal Bowel Sounds - Extremities Exam Extremities Exam: Full ROM, Normal Capillary Refill - Neurological Exam Neurological Exam: Alert, Awake, Oriented x3 - Skin Skin Exam: Dry, Intact, Normal Color Assessment and Plan - Assessment and Plan (Free Text) Assessment: IMPRESSION: Hypertension, hyperlipidemia,bipolar disorder,schizophrenia, non- obstructive coronary artery disease, last cardiac cath in 2004. Repeat stress test in 2014- suspicious ischemia however refused cardiac catherization at that time. Previous ECHO showed mild mitral and tricuspid regurgitation . Preserved LV function. Plan: Repeat ECHO result-LV function is normal EF 55-60% Right ventricle moderately dilated, systolic function of RV moderately reduced, trace aortic regurgitation,mild MR, moderate TR RVSP 59 mmhg, IVC dilated, moderate pulmonary hypertension. Stable cardiac status Heart rate and blood pressure stable Continue current treatment Heart rate and blood pressure stable Continue Aspirin 81 mg daily,Lovenox 40 mg daily,Lasix 40 mg daily,Cozaar 100 mg daily, Lopressor 25m g BID and Hydralazine 10 mg QID PRN. Able to urinate assisted to bathroom Will follow up Plan and treatment discussed with Dr. Sanchez
[2017-06-26 07:00] LABS: ALB/GLOB RATIO 1.4 (1.1-1.8); ALBUMIN 3.8 g/dL (3.0-4.8); ALT/SGPT 44 U/L (7-56); AST/SGOT 27 U/L (14-36); BLOOD UREA NITROGEN 28 mg/dL (7-21); CALCIUM 8.9 mg/dL (8.4-10.5); GFR AFRICAN-AMERICAN > 60; GFR NON-AFRICAN AMERICAN > 60
--- NOTE | 2017-06-26 08:50 | PN ---
DATE: 06/25/2017 Addendum of the initial progress note dictated by our nurse practitioner, Shelly Foster. REASON FOR ADDENDUM: Telemetry strip shows the patient had a 3 second 3.37 pause between 1 a.m. to 2 a.m. while the patient was sleeping. PLAN: Discontinue metoprolol and start Holter for 24 hours. Awaiting for the echo to be completed to review and after 24 to 48 hour washout period of the beta-reggie, still the patient has been bradycardic, consider pacemaker. Discussed with the patient. Most likely this is secondary to beta-reggie. We will await at least for 48 hours of washout period after the beta-reggie to make a decision to pacemaker. Interim, continue aspirin, continue hydralazine p.r.n. for blood pressure, metoprolol is on hold, continue Lasix, continue DVT prophylaxis. As mentioned earlier, the patient had a cardiac cath in 2004 and later on in 2014. Equivocal stress test, the patient refused cardiac catheterization. Previous echo shows mild mitral and tricuspid regurgitation, preserved LV function. Further recommendation will be made after the echo as well as Holter monitor and telemetry monitoring. Elena Sanchez MD
--- NOTE | 2017-06-26 09:12 | PN ---
DATE: 06/25/2017 SUBJECTIVE: The patient was seen and examined on the bedside, looking comfortable. Chest pain is better. No nausea, vomiting, or diarrhea. No hematuria or hematochezia. No swelling of the legs. No fever, no chills. Denies back pain today. Denies shortness of breath on exertion. The patient is getting nasal cannula. REVIEW OF SYSTEMS: Twelve-point review of systems was negative except as mentioned above. PHYSICAL EXAMINATION VITAL SIGNS: Temperature 98.3, pulse 54, respiratory rate 20, blood pressure 144/55, pulse oximetry 95. HEENT: Head normocephalic, atraumatic. Eyes, PERRLA. Extraocular muscles intact. Conjunctivae clear. Nose patent. Mucous membrane moist. NECK: Supple. No carotid bruit, JVD or thyromegaly. CHEST: Bilaterally symmetrical. HEART: S1 and S2 positive. LUNGS: Clear to auscultation. ABDOMEN: Soft. Bowel sounds present. No organomegaly. EXTREMITIES: No edema, no cyanosis. NEUROLOGIC: Patient is awake and alert. Moving all 4 extremities. No focal deficit. MEDICATIONS: Albuterol, Ecotrin, vitamin D, getting her psych medications, calcium with vitamin D, docusate, Colace, Lovenox, Pepcid, iron, Prozac, folic acid, Lasix, hydralazine, loratadine, Claritin, Cozaar, prednisone. LABORATORY DATA: White blood cell 6.3, hemoglobin 11.8, hematocrit 38.8, platelets 173. Sodium 142, potassium 3.8, BUN 19, creatinine 0.8, glucose 78. ASSESSMENT AND PLAN: The patient is a 76-year-old lady with multiple medical problems, complaining about shortness of breath, history of anemia, schizophrenia, hypertension, hypercholesterolemia, bipolar disorder, nonobstructive coronary artery disease, last cardiac catheterization in 2004, repeat stress test in 2014, suspicious ischemic; however, refused cardiac catheterization at that time. Previous echo showed mitral and tricuspid , left ventricular function. I reviewed Dr. Sanchez's note. Cardiac-salinas, according to him, the patient is stable. He wanted to repeat echocardiography. Seen by Dr. Gant. [employer] Technician is Dr. Sanchez. Gastrointestinal and deep venous thrombosis prophylaxis. Discussion done with the patient, the patient's nursing staff, advised to get physical therapy. We will follow up. Zulema Amaya MD MTDWei
[2017-06-26] MEDS: Calcium-Vit D 250 mg-125 Units Tab UD PO SCH (09:16)
[2017-06-26] MEDS: Enoxaparin 40 mg Syringe SC SCH (09:17)
[2017-06-26] MEDS: MIRABEGRON 25 MG PO SCH (09:59)
--- NOTE | 2017-06-26 16:16 | PN ---
DATE: 06/26/2017 This is an addendum to the initial progress note dictated by our nurse practitioner, Shelly Foster. Telemetry strip shows no further episode of pause or significant bradyarrhythmia. The patient is off beta reggie. Denies any chest pain, shortness of breath, or any palpitation. RECOMMENDATION: The patient is wearing Holter. Continue Holter monitor and continue telemetry for next 24 hours. Avoid beta reggie, avoid rate limiting calcium-channel reggie. Continue DVT prophylaxis. Continue Lasix. I will repeat the blood workup in the morning and repeat EKG in the morning. As mentioned above, the patient had Sunday to Sunday night, 06/23/2017 to 06/24/2017, had a 3-second pause, was on beta reggie. After beta reggie held, no further episode of pause noted. We will follow with you. The patient refused cardiac catheterization in the past, had an abnormal stress test in 2014, equivocal. We will get repeat EKG in the morning. Thank you, Dr. Amaya, for providing us the opportunity in taking care of the patient, Karolina Puri. Elena Sanchez MD
--- NOTE | 2017-06-26 23:12 | PN ---
DATE: 06/26/2017 PULMONARY PROGRESS NOTE REFERRING PHYSICIAN: Zulema Amaya MD. SUBJECTIVE: She is lying in the bed, head at 45 degrees. Nursing staff at bedside. Refused physical therapy today. No headache. No rhinitis. No nausea. No vomiting. No diarrhea. Still has some rash, which is slowly improving. Refusing to place skin lotion. OBJECTIVE: GENERAL: In no acute distress. VITAL SIGNS: Temp is 98, heart rate is 78, respiratory rate is 16, blood pressure 123/61, pulse ox 95% on 2 L nasal cannula. HEENT: Moist mucous membrane. Crowded airway. Mallampati score is 4. NECK: Supple. No JVD. LUNGS: Have a fair airflow with rhonchi. HEART: S1 and S2. ABDOMEN: Soft and nontender. No organomegaly. EXTREMITIES: No edema. NEUROLOGICAL: Awake, alert. Follows simple command. LABORATORY DATA: Reviewed, no new lab is available since yesterday. MEDICATIONS: She is on hydralazine 10 mg four times daily p.r.n., Claritin 10 mg daily, Colace 200 mg daily, losartan 100 mg daily, DuoNeb every 6 hours, Ecotrin 81 mg daily, ferrous sulfate 324 mg three times a day, folic acid 1 mg daily, Lasix 40 mg daily, metoprolol tartrate 25 mg twice a day, Lovenox 40 mg daily, Os-Karl 1 tab daily, Pepcid 40 mg daily, prednisone 10 mg daily, Prozac 10 mg daily, Singulair 10 mg daily, Xanax 0.25 mg twice a day p.r.n. basis. IMPRESSION AND PLAN: Chronic obstructive lung disease, may have sleep apnea syndrome, morbid obesity, hypertension, hyperlipidemia, bipolar disorder, chronic rash. Pulmonary point of view, doing alright. Keep head at 45 degrees. Spoke to nursing staff. Try to get out of bed to chair. Encourage the patient for therapy. Fall precaution. Continue antihistamine and decrease prednisone to 5 mg daily. Thank you and we will follow with you. Elena Gant MD
--- NOTE | 2017-06-27 00:41 | PN ---
DATE: SUBJECTIVE: Patient was seen and examined at the bedside, looking comfortable. No nausea, vomiting, or diarrhea. No headache. No chest pain, no palpitation. No fever, no chills. PHYSICAL EXAMINATION: VITAL SIGNS: Temperature 97.7, pulse 77, blood pressure 123/61, respiratory rate 17. HEENT: Head normocephalic, atraumatic. Eyes, PERRLA. Extraocular muscles intact. Conjunctivae clear. Nose patent. Mucous membrane moist. NECK: Supple. No carotid bruit. No JVD or thyromegaly. CHEST: Bilaterally symmetrical. HEART: S1 and S2 positive. LUNGS: Clear to auscultation. ABDOMEN: Soft. Bowel sounds positive. No organomegaly. EXTREMITIES: No edema. No cyanosis. NEUROLOGICAL: The patient is awake and alert. Moving all 4 extremities. No focal deficits. MEDICATIONS: Hydralazine, Claritin, Colace, Cozaar, aspirin, ferrous sulfate, folic acid, Lasix, Lopressor, Lovenox, calcium with vitamin D, Pepcid, prednisone, Prozac, Singulair, Xanax. LABORATORY DATA: White blood cells 6.3, hemoglobin 11.8, hematocrit 38.5, platelets 173. Sodium 141, potassium 3.9, BUN 28, creatinine 0.9. Iron 41. Iron saturation 13. ASSESSMENT AND PLAN: Ms. Karolina Puri is a 76-year-old lady with anemia, hypocalcemia, hyperphosphatemia, iron deficiency, abnormal liver function test, urinary tract infection, came with chest pain, shortness of breath. Seen by Dr. Elena Sanchez, yarn man. History of schizophrenia, hypertension, hypercholesterolemia, bipolar, nonobstructive coronary artery disease. Stress test was done in 2014, suspicious ischemia; however, refused cardiac catheterization at that time. Previous echo shows mild mitral and tricuspid regurgitation, preserved left ventricular function. Repeat echo result, left ventricular function is normal, ejection fraction 55% to 60%. Stable cardiac status. Continue current medication. Continue aspirin, losartan, Lovenox, Cozaar. Patient was not able to urinate. Catheterization was done. Urologist Dr. Royal is on the case. Psychiatrist Dr. Geovanna Gallardo is on the case. Chronic obstructive lung disease, sleep apnea syndrome, morbid obesity. Continue tapering dose of steroid, antihistamine. Get bladder scan. Patient is wearing Holter monitor, continue Holter monitor monitoring, and continue telemetry for next 24 hours. Avoid beta-blockers, avoid rate limiting calcium-channel blockers as per Cardiology. Continue deep vein thrombosis prophylaxis. Patient has Sunday and Sunday night three 3-second pauses, was on beta-blockers. After beta reggie held, no further episode of pause noted. We will follow up. Patient refused cardiac catheterization in the past, has abnormal stress test/equivocal. Reviewed Dr. Sanchez's notes. We will follow up. Zulema Amaya MD
--- NOTE | 2017-06-27 03:04 | CON ---
DATE: HISTORY OF PRESENT ILLNESS: Patient is 76-year-old female with history of schizoaffective disorder, multiple admissions to the psychiatric inpatient unit in the past. This time, patient was admitted to the medical side for evaluation of chest pain. Psych consult was called for evaluation of mood symptoms as well as patient has a history of mental illness. Patient was seen and examined. Patient is very familiar to this television script writer from the multiple admissions to the psychiatric inpatient unit. Most recently, patient was admitted to the psych unit in 2016 for delusions. Patient has her power of regulatory attorney, her daughter Alicia. Patient was seen and examined today on the medical side. Patient presented to be alert, somewhat anxious. Patient has lip smacking movement, most likely this is due to psychotropic medications and it could be related to the dentures. Patient reported that [facility] was going [facility]. Patient reports that she was compliant with the medications and followup appointment. Patient reported that she was seeing Dr. Matthew Chilel on [address], local psychiatrist. This television script writer called to the pharmacy. Patient was filling her medications in [facility], phone number is [phone]. Patient was on Zyprexa 10 mg at the nighttime, which will be continued and Prozac 10 mg daily, which will be continued. PHYSICAL EXAMINATION: VITAL SIGNS: Reviewed. Temperature 97.5, pulse is 83, blood pressure 129/79, respiration 20. MEDICATIONS: Reviewed. All of the medications resumed and this television script writer would recommend for anxiety, Xanax 0.25 mg twice a day as needed, which was already started, Prozac 10 mg was started and Zyprexa 10 mg at the nighttime also was resumed. MENTAL STATUS EXAMINATION: Patient presented to be alert, somewhat anxious. Patient has fair eye contact. Speech was underproductive, anxious. Mood described "I feel okay, but things were not doing so well." Thought process seems to be concrete. Thought content, patient denied visual, auditory or tactile hallucinations. Denied thoughts of harming herself or others, but at the same time, the patient has a history of delusions. Last admission, patient was convinced that she has syphilis, which was not true. Insight and judgment seems to be limited. Impulses are well controlled. IMPRESSION As per history, schizoaffective disorder, multiple medical issues. PLAN Continue current medications, current management. Zyprexa should be continued. Xanax should be continued. Prozac also should be continued. We will follow up and advise accordingly. Patient was seen by Dr. Matthew Chilel in the community, local psychiatrist. We will talk more with patient and advise accordingly. Thank you very much for letting me participate in care of your patient. Geovanna Gallardo MD MTDWei
[2017-06-27] MEDS: Albuterol-Ipratrop 3 mg / 0.5 (3 ml) UD IH SCH ×2 (03:12→07:30)
--- NOTE | 2017-06-27 06:17 | CP.PCM.PN ---
Subjective - Date & Time of Evaluation Date of Evaluation: 06/27/17 Time of Evaluation: 06:30 - Subjective Subjective: Seen and examined by me and Dr. Sanchez Reason for consult and follow up:Cardiac evaluation and follow up, Hypertension , non-obstructive coronary artery disease, 3 second pause on telemetry Subjective: denies chest pain and shortness of breath. feels okay Objective - Vital Signs/Intake and Output Vital Signs (last 24 hours): Temp Pulse Resp BP Pulse Ox 98.2 F 75 20 142/74 96 06/27/17 06:00 06/27/17 06:00 06/27/17 06:00 06/27/17 06:00 06/27/17 06:00 Intake and Output: 06/26/17 06/27/17 18:59 06:59 Intake Total 360 240 Output Total 900 400 Balance -540 -160 - Medications Medications: Current Medications Albuterol/Ipratropium (Duoneb 3 Mg/0.5 Mg (3 Ml) Ud) 3 ml IH [id number] [facility] Last Admin: 06/27/17 03:12 Dose: 3 ml Alprazolam (Xanax) 0.25 mg PO BID PRN; Protocol PRN Reason: Anxiety Stop: 07/03/17 10:01 Last Admin: 06/26/17 22:14 Dose: 0.25 mg Aspirin (Ecotrin) 81 mg PO DAILY [facility] Last Admin: 06/26/17 10:42 Dose: 81 mg Calcium/Vitamin D (Oscal-D 250 Mg-125 Units Tab) 1 tab PO DAILY [facility] Last Admin: 06/26/17 09:16 Dose: 1 tab Docusate Sodium (Colace) 200 mg PO DAILY [facility] Last Admin: 06/26/17 09:16 Dose: 200 mg Enoxaparin Sodium (Lovenox) 40 mg SC DAILY [facility] PRN Reason: Protocol Last Admin: 06/26/17 09:17 Dose: 40 mg Famotidine (Pepcid) 40 mg PO HS [facility] Last Admin: 06/26/17 22:14 Dose: 40 mg Ferrous Sulfate (Feosol) 324 mg PO TID [facility] Last Admin: 06/26/17 17:13 Dose: 324 mg Fluoxetine HCl (Prozac) 10 mg PO DAILY [facility] Last Admin: 06/26/17 09:16 Dose: 10 mg Folic Acid (Folic Acid) 1 mg PO DAILY [facility] Last Admin: 06/26/17 09:17 Dose: 1 mg Furosemide (Lasix) 40 mg IV DAILY [facility] Last Admin: 06/26/17 09:15 Dose: 40 mg Hydralazine HCl (Apresoline) 10 mg PO QID PRN PRN Reason: for sbp>170 Loratadine (Claritin) 10 mg PO DAILY [facility] Last Admin: 06/26/17 09:16 Dose: 10 mg Losartan Potassium (Cozaar) 100 mg PO DAILY [facility] Last Admin: 06/26/17 09:17 Dose: 100 mg Metoprolol Tartrate (Lopressor) 25 mg PO BID [facility] Last Admin: 06/24/17 17:59 Dose: 25 mg Montelukast Sodium (Singulair) 10 mg PO DAILY [facility] Last Admin: 06/26/17 09:15 Dose: 10 mg Non-Formulary Medication (Mirabegron [Myrbetriq]) 25 mg PO DAILY [facility] Last Admin: 06/26/17 09:59 Dose: Not Given Prednisone (Prednisone Tab) 5 mg PO DAILY [facility] - Labs Labs: 06/23/17 06:00 06/26/17 05:30 PT 12.6 SECONDS (9.4-12.5) H 06/22/17 12:30 INR 1.09 (0.93-1.08) H 06/22/17 12:30 APTT 29.6 Seconds (25.1-36.5) 06/22/17 12:30 - Constitutional Appears: No Acute Distress - Head Exam Head Exam: NORMAL INSPECTION - ENT Exam ENT Exam: Mucous Membranes Moist, Normal Exam - Respiratory Exam Respiratory Exam: Clear to Ausculation Bilateral, NORMAL BREATHING PATTERN - Cardiovascular Exam Cardiovascular Exam: REGULAR RHYTHM, +S1, +S2 - GI/Abdominal Exam GI & Abdominal Exam: Soft, Normal Bowel Sounds - Extremities Exam Extremities Exam: Normal Capillary Refill - Neurological Exam Neurological Exam: Alert, Awake, Oriented x3 - Psychiatric Exam Psychiatric exam: Normal Affect, Normal Mood - Skin Skin Exam: Intact, Normal Color, Warm Assessment and Plan - Assessment and Plan (Free Text) Assessment: IMPRESSION: Hypertension, hyperlipidemia,bipolar disorder,schizophrenia, non- obstructive coronary artery disease, last cardiac cath in 2004. Repeat stress test in 2014- suspicious ischemia however refused cardiac catherization at that time. Previous ECHO showed mild mitral and tricuspid regurgitation . Preserved LV function. 3.37 seconds pause on telemetry. Held Betablocker and placed on holter monitor. Plan: Patient had 3.37 pause on 05/24 and no further episodes then. Now okay, For now, she does not need permanent pacemaker. Continue to hold betablocker. Will review Holter monitor results Stable cardiac status Heart rate and blood pressure stable Continue current treatment Continue Aspirin 81 mg daily,Lovenox 40 mg daily,Lasix 40 mg daily,Cozaar 100 mg daily, and Hydralazine 10 mg QID PRN. Will follow up Plan and treatment discussed with Dr. Sacnhez
[2017-06-27 06:19] LABS: BASO # 0.02 K/mm3 (0.0-2.0); BASO % 0.2 % (0.0-3.0); EOS # 0.1 (0.0-0.7); EOS % 1.6 % (1.5-5.0); GRAN # 5.77 (1.4-6.5); GRAN % 66.7 % (50.0-68.0); LYMPH # 1.8 (1.2-3.4); MEAN CELL VOLUME 91.6 fl (80.0-105.0); MEAN CORPUSCULAR HEMOGLOBIN 28.8 pg (25.0-35.0); MEAN CORPUSCULAR HGB CONC 31.4 g/dl (31.0-37.0); MEAN PLATELET VOLUME 11.6 fl (7.0-11.0); MONO # 0.9 (0.1-0.6); MONO % 10.5 % (1.0-6.0); RBC 4.9 10^6/uL (3.5-6.1); RED CELL DISTRIBUTION WIDTH 14.5 % (11.5-14.5)
[2017-06-27 07:04] LABS: WHITE BLOOD COUNT 8.7 10^3/ul (4.5-11.0)
[2017-06-27 07:05] LABS: HEMOGLOBIN 14.1 g/dL (12.0-16.0)
[2017-06-27 07:33] LABS: ALB/GLOB RATIO 1.3 (1.1-1.8); ALBUMIN 3.8 g/dL (3.0-4.8); ALT/SGPT 52 U/L (7-56); AST/SGOT 47 U/L (14-36); BLOOD UREA NITROGEN 28 mg/dL (7-21); CALCIUM 9.2 mg/dL (8.4-10.5); GFR AFRICAN-AMERICAN > 60; GFR NON-AFRICAN AMERICAN > 60
[2017-06-27] MEDS: Calcium-Vit D 250 mg-125 Units Tab UD PO SCH (09:03)
[2017-06-27] MEDS: Enoxaparin 40 mg Syringe SC SCH (09:04)
[2017-06-27] MEDS: MIRABEGRON 25 MG PO SCH (09:06)
--- NOTE | 2017-06-27 10:08 | CARD ---
APPROVED REPORT Reason for Test: BRADYCARDIA Hookup date: 2017-06-25 Scan date: 2017-06-27 Recording time: 23 HR 59 MIN Heart Rate Data Total Beats: [id number] Min HR: 49 BPM at 2:42AM Avg HR: 71 BPM Max HR: 100 BPM at 1:08PM Supraventricular Ectopy Total VE Beats: 201 (0.2%) Atrial Runs: 2 Beats: 7 Longest: 4 Fastest: 164 BPM Atrial Pairs: 9 Events Longest R-R: 1.3 sec at 9:12 PM Single PAC's: 176 Conclusion SINUS RHYTHM / SINUS BRADYCARDIA MINIMUM HR 49 BPM MAXIMUM HR 100 BPM VERY RARE APC'S, ISOLATED PAIRED, ABERRANT, 2 RUNS-LONGEST 4 BEATS, MAX RATE 164 BPM DIARY WAS NOT AVAILABLE.
--- NOTE | 2017-06-27 12:24 | PN ---
DATE: FOLLOWUP NOTE SUBJECTIVE: Shortly, the patient is a 76-year-old with reported history of schizoaffective disorder. The patient was admitted to the medical site for evaluation of chest pain. Psych consult was called because the patient has history of mental illness and she is on psychotropic medication. The patient is very familiar to this fiction and nonfiction prose writer from the previous admission into the psychiatric inpatient unit as well as consultation services. The patient was seen and examined for the first time yesterday. Today, this fiction and nonfiction prose writer followed up. Yesterday, all of the medications were confirmed and resumed. Today, the patient was seen at the morning time with the medical students. The patient presented to be alert, pleasant and cooperative. The patient reported that she feels better. The patient was smiling. The patient reported that she has good appetite. The patient ate 100% of her meal. The patient presented at her baseline to compare with the previous admissions. As per collaterals from the nursing staff, the patient had a good night sleep. The patient does not have any behavioral issues. This fiction and nonfiction prose writer reviewed vital signs, seems to be stable. Temperature 98.2, pulse 75, blood pressure 142/74, respirations 20, oxygen saturation is 96. Medications reviewed, DuoNeb, Xanax 0.25 mg twice a day as needed, aspirin, calcium, Colace Lovenox, Pepcid, Feosol, Prozac 10 mg daily, folic acid, furosemide, hydralazine, Claritin, Cozaar, Lopressor, Singulair as well as prednisone. The patient is supposed to be on Zyprexa and we will resume Zyprexa Zydis daily at bedtime. The patient should continue that medication because the patient has history of mental illness and should be continued on that medication. Usually, if the patient is on that medication, she will become psychotic, paranoid and the patient would present with delusional believes. We will resume a.m. and at bedtime. The patient was taking 10 mg daily. Chest x-ray also reviewed. The patient has sinus bradycardia, but there is no prolongation in QTc. MENTAL STATUS EXAMINATION: The patient presented to be alert, pleasant, cooperative. Fair eye contact. Speech was normal rate, tone, quality and quantity. Mood described as feels better. Affect was reactive. Mood congruent. Thought process at times circumstantial, but there are no psychotic symptoms observed or reported. Insight and judgment improving. Impulses are well controlled. IMPRESSION: As per history is schizoaffective disorder. The patient has history of multiple admissions in the past, rule out mood disorder due to general medical condition. PLAN: This fiction and nonfiction prose writer confirmed all of the medications from [facility] yesterday. The patient need to be continued on Zyprexa Zydis 5 mg twice a day. Before, the patient was taking 10 mg at the nighttime. Xanax as needed. Also, the patient is on Prozac 10 mg daily. The patient should continue those medications. We will follow up and advise accordingly. At present moment, the patient presented to be at her baseline. Should you have any questions, give me a call back. Thank you very much for letting me participate in the care of your patient. Geovanna Gallardo MD
--- NOTE | 2017-06-27 15:54 | PN ---
DATE: 06/27/2017 Addendum to initial progress note dictated by our nurse practitioner, Shelly Foster. REASON FOR DICTATION: Addendum because the patient had Holter study completed that revealed normal sinus, lowest heart rate 49 with the patient was sleeping at 2:42 a.m. Maximum heart rate was 100. No evidence of sick sinus syndrome. No evidence of further arrhythmia. Off beta reggie. RECOMMENDATION: We will discontinue telemetry. Continue current treatment. The patient does not need pacemaker. Continue medical treatment. The patient is stable to be discharged from Cardiology point of view when stable from medically. Thank you, Dr. Amaya for providing us the opportunity in taking care of the patient, Karolina Puri. Elena aSnchez MD
--- NOTE | 2017-06-27 18:44 | PN ---
DATE: 06/27/2017 PULMONARY PROGRESS NOTE REFERRING PHYSICIAN: Zulema Amaya MD. SUBJECTIVE: She is lying in the bed, head at 45 degrees. Feels much better. Has a large bladder residual, requiring Bruno catheter yesterday. No nausea. No vomiting. No abdominal pain. No leg pain or leg swelling. Rash is also a little better. PHYSICAL EXAMINATION: GENERAL: In no acute distress. VITAL SIGNS: Temperature is 98, heart rate is 75, respiratory rate is 18, blood pressure is 118/65, pulse ox is 96% on nasal cannula. HEENT: Moist mucous membrane. Crowded airway. Mallampati score is 4. NECK: Supple. No JVD. LUNGS: Have a fair airflow with a few rhonchi. HEART: S1 and S2. ABDOMEN: Soft and nontender. No organomegaly. EXTREMITIES: No edema. NEUROLOGIC: Awake and alert. Follows simple command. MEDICATIONS: She is on hydralazine 10 mg four times a day p.r.n., Claritin 10 mg daily, Colace 200 mg daily, Cozaar 100 mg daily, DuoNeb every 6 hours, Ecotrin 81 mg daily, ferrous sulfate 325 mg 3 times a day, folic acid 1 mg daily, Lasix 40 mg daily, metoprolol tartrate 25 mg twice a day, Lovenox 40 mg daily, she is on mirabegron 25 mg daily, Pepcid 20 mg at bedtime, prednisone 5 mg daily, Prozac 10 mg daily, Singulair 10 mg daily, Xanax 0.25 mg twice a day p.r.n., and Zyprexa 5 mg in the morning and at bedtime. LABORATORY DATA: Shows hemoglobin of 14.1, hematocrit 44.9, WBC 8.7, and platelets is 219. Sodium 142, potassium 4, chloride 99, bicarbonate 33, BUN 28, creatinine 0.9, calcium is 9.2, phosphorous 4.6, magnesium is 2.4. AST 47, ALT 52, alkaline phosphatase is 89, albumin is 3.8. TSH is 3.58. Microbiology; urine culture has multiple species, may be contaminated. IMPRESSION AND PLAN: Chronic obstructive lung disease, may have sleep apnea syndrome, morbid obesity, hypertension, hyperlipidemia, bipolar disorder, chronic rash, bladder outlet obstruction, couple of factors could be there for she is on Atrovent with , also on neuroleptic, which is one of the cause. We will send urinalysis and urine culture. Fall precaution and out of bed to chair if possible. Thank you and we will follow with you. Elena Gant MD
[2017-06-27] MEDS: OLANZapine 5 mg Disintegrating Tab PO SCH (21:11)
--- NOTE | 2017-06-27 22:24 | CARD ---
APPROVED REPORT EKG Measurement Heart [id number] <Conclusion> Normal sinus rhythm Nonspecific ST and T wave abnormality Prolonged QT Abnormal ECG
[2017-06-28] MEDS ORDERED: guaiFENesin 100 mg/5 ml Syrup UD PO ONE (00:27)
--- NOTE | 2017-06-28 04:53 | PN ---
DATE: SUBJECTIVE: Patient is a 76-year-old female. Patient was seen and examined at the bedside, looking comfortable. Has large bladder residual, requiring Bruno catheter placement. No fever. No chills. No nausea, vomiting, diarrhea. No hematuria, or hematochezia. No swelling of the legs. No chest pain or palpitation. Urology consult called with Dr. Royal, still waiting for the input. PHYSICAL EXAMINATION: VITAL SIGNS: Temperature 98, heart rate 75, respiratory rate 18, blood pressure 118/65, pulse oximetry 96% on nasal cannula. HEENT: Head normocephalic, atraumatic. Eyes, PERRLA. Extraocular muscles intact. Conjunctivae clear. Nose patent. Mucous membrane moist. NECK: Supple. No carotid bruit. No JVD or thyromegaly. CHEST: Bilaterally symmetrical. HEART: S1 and S2 positive. LUNGS: Clear to auscultation. ABDOMEN: Soft. Bowel sounds positive. No organomegaly. EXTREMITIES: No edema. No cyanosis. NEUROLOGICAL: The patient is awake and alert. Moving all four extremities. No focal deficits. MEDICATIONS: Hydralazine, Claritin, Colace, Cozaar, Ecotrin, ferrous sulfate, Lasix, metoprolol, Lovenox, mirabegron, Pepcid, Prednisone, Prozac, Singulair, Xanax, Zyprexa. LABORATORY DATA: Hemoglobin 14.1, hematocrit 44.9, white blood cells 8.7, platelets 219. Sodium 142, potassium 4, BUN 28, creatinine 0.9. AST 48, ALT 52, TSH 3.58. Urine culture shows multiple species, may be contamination. ASSESSMENT AND PLAN: Mrs. Karolina Puri with multiple medical problems, chronic obstructive lung disease, schizophrenia, sleep apnea syndrome, bipolar, morbid obesity, hypertension, hypercholesterolemia, chronic rash, bladder outlet obstruction, may be multifactorial. Patient has psych problems. Fall precaution. Appreciated Dr. Gant's input. Seen by Dr. Geovanna Gallardo and Dr. Sanchez. Patient has Holter monitor. revealed normal sinus. Lowest heart rate of 49. Patient was sleeping at 2:42 a.m. Maximum heart rate was 100. No evidence of sick sinus syndrome. No evidence of further arrhythmias. Off beta-blockers. According to Dr. Sanchez, patient does not need pacemaker. Continue medical treatment. Gastrointestinal and deep vein thrombosis prophylaxes. Repeat labs. We will follow up. Zulema Amaya MD MTDWei
[2017-06-28] MEDS: Enoxaparin 40 mg Syringe SC SCH (10:06)
[2017-06-28] MEDS: Calcium-Vit D 250 mg-125 Units Tab UD PO SCH (10:08)
[2017-06-28] MEDS: OLANZapine 5 mg Disintegrating Tab PO SCH ×2 (10:08→22:00)
[2017-06-28] MEDS: MIRABEGRON 25 MG PO SCH (10:09)
--- NOTE | 2017-06-28 13:04 | CP.PCM.PN ---
Subjective - Date & Time of Evaluation Date of Evaluation: 06/28/17 Time of Evaluation: 07:15 - Subjective Subjective: Seen and examined by me and Dr. Sanchez Reason for consult and follow up: Subjective: doing okay ,feeling better, denies chest pain Objective - Vital Signs/Intake and Output Vital Signs (last 24 hours): Temp Pulse Resp BP Pulse Ox 97.8 F 77 20 144/92 H 95 06/28/17 06:00 06/28/17 06:00 06/28/17 06:00 06/28/17 10:07 06/28/17 06:00 Intake and Output: 06/28/17 06/28/17 06:59 18:59 Intake Total 480 Output Total 450 Balance 30 - Medications Medications: Current Medications Alprazolam (Xanax) 0.25 mg PO BID PRN; Protocol PRN Reason: Anxiety Stop: 07/03/17 10:01 Last Admin: 06/26/17 22:14 Dose: 0.25 mg Aspirin (Ecotrin) 81 mg PO DAILY [facility] Last Admin: 06/28/17 10:08 Dose: 81 mg Calcium/Vitamin D (Oscal-D 250 Mg-125 Units Tab) 1 tab PO DAILY [facility] Last Admin: 06/28/17 10:08 Dose: 1 tab Docusate Sodium (Colace) 200 mg PO DAILY [facility] Last Admin: 06/28/17 10:07 Dose: 200 mg Enoxaparin Sodium (Lovenox) 40 mg SC DAILY [facility] PRN Reason: Protocol Last Admin: 06/28/17 10:06 Dose: 40 mg Famotidine (Pepcid) 40 mg PO HS [facility] Last Admin: 06/27/17 21:11 Dose: 40 mg Ferrous Sulfate (Feosol) 324 mg PO TID [facility] Last Admin: 06/28/17 10:08 Dose: 324 mg Fluoxetine HCl (Prozac) 10 mg PO DAILY [facility] Last Admin: 06/28/17 10:20 Dose: 10 mg Folic Acid (Folic Acid) 1 mg PO DAILY [facility] Last Admin: 06/28/17 10:08 Dose: 1 mg Furosemide (Lasix) 40 mg IV DAILY [facility] Last Admin: 06/28/17 10:07 Dose: 40 mg Hydralazine HCl (Apresoline) 10 mg PO QID PRN PRN Reason: for sbp>170 Loratadine (Claritin) 10 mg PO DAILY [facility] Last Admin: 06/27/17 09:04 Dose: 10 mg Losartan Potassium (Cozaar) 100 mg PO DAILY [facility] Last Admin: 06/28/17 10:08 Dose: 100 mg Metoprolol Tartrate (Lopressor) 25 mg PO BID [facility] Last Admin: 06/24/17 17:59 Dose: 25 mg Montelukast Sodium (Singulair) 10 mg PO DAILY [facility] Last Admin: 06/28/17 10:08 Dose: 10 mg Non-Formulary Medication (Mirabegron [Myrbetriq]) 25 mg PO DAILY [facility] Last Admin: 06/28/17 10:09 Dose: Not Given Olanzapine (Zyprexa Zydis) 5 mg PO [facility] PRN Reason: Protocol Last Admin: 06/28/17 10:08 Dose: 5 mg Prednisone (Prednisone Tab) 5 mg PO DAILY [facility] Last Admin: 06/28/17 10:08 Dose: 5 mg Tamsulosin HCl (Flomax) 0.4 mg PO DAILY [facility] Last Admin: 06/28/17 10:08 Dose: 0.4 mg - Labs Labs: 06/27/17 06:00 06/27/17 06:00 PT 12.6 SECONDS (9.4-12.5) H 06/22/17 12:30 INR 1.09 (0.93-1.08) H 06/22/17 12:30 APTT 29.6 Seconds (25.1-36.5) 06/22/17 12:30 - Constitutional Appears: No Acute Distress - Eye Exam Eye Exam: Normal appearance - ENT Exam ENT Exam: Mucous Membranes Moist, Normal Exam - Respiratory Exam Respiratory Exam: Clear to Ausculation Bilateral, NORMAL BREATHING PATTERN - Cardiovascular Exam Cardiovascular Exam: REGULAR RHYTHM, +S1, +S2 - GI/Abdominal Exam GI & Abdominal Exam: Soft, Normal Bowel Sounds - Extremities Exam Extremities Exam: Full ROM, Normal Capillary Refill - Neurological Exam Neurological Exam: Alert, Awake, Oriented x3 - Psychiatric Exam Psychiatric exam: Normal Affect, Normal Mood - Skin Skin Exam: Dry, Intact, Normal Color, Warm Assessment and Plan - Assessment and Plan (Free Text) Assessment: IMPRESSION: Hypertension, hyperlipidemia,bipolar disorder,schizophrenia, non- obstructive coronary artery disease, last cardiac cath in 2004. Repeat stress test in 2014- suspicious ischemia however refused cardiac catherization at that time. Previous ECHO showed mild mitral and tricuspid regurgitation . Preserved LV function. 3.37 seconds pause on telemetry. Held Betablocker and holter monitor showed NSR not requiring PPM. Plan: Discontinued Telemetry Cardiac status stable, july discharge from cardiac standpoint Patient had 3.37 pause on 05/24 and no further episodes then. Now okay, Continue to hold betablocker. Holter monitor results -normal sinus rythm, does not need PPM Stable cardiac status Heart rate and blood pressure stable Continue current treatment Continue Aspirin 81 mg daily,Lovenox 40 mg daily,Lasix 40 mg daily,Cozaar 100 mg daily, and Hydralazine 10 mg QID PRN. Had episode of urinary retention, talbot catheter inserted and Urology on consult Will follow up Plan and treatment discussed with Dr. Sanchez
--- NOTE | 2017-06-28 20:50 | PN ---
DATE: SUBJECTIVE: In short, the patient is 76 years old female with a long history of the schizoaffective disorder, multiple medical issues. The patient was admitted on the medical side for evaluation of abdominal pain. Psych consult was called for medication management and the patient has history of admission to psych inpatient unit here in [place] and for medication management. The patient was seen and examined for the past 2 days, all medications confirmed with the pharmacy. The patient was followed up today. The patient reported that she feels better from the medical standpoint. The patient reported that after inserted the cath and urine what she was retaining passed,she feels much better. The patient reported that she slept well, denied being depressed. Denied thoughts of harming herself or others. Reported no side effects of the medications. Medically [place], the patient also is improving. This financial underwriter checked vital signs. Vital signs seemed to be stable. As per collateral information from the nursing staff, the patient is compliant with medications. There is no psychosis. No agitation. The patient is in good behavioral control. Labs reviewed. Vital signs reviewed. Medications reviewed. The patient is on Xanax 0.25 mg twice a day. The patient is on Prozac 10 mg daily. The patient is on Zyprexa Zydis 5 mg twice a day. The patient tolerated medications well. No side effects observed or reported. MENTAL STATUS EXAMINATION: The patient was alert, oriented, pleasant, cooperative. No signs of psychosis. The patient was related to this financial underwriter, good eye contact. Speech was normal rate, tone, quality, and quantity. Mood described as was reactive, mood congruent. Thought process at times circumstantial, but goal directed. Thought content: The patient denied visual, auditory, tactile hallucinations, paranoid ideation. The patient denied thoughts of harming herself or others. Denied intents or plan. In the past, the patient was delusional, had impression that she had multiple consultations from the Infectious Disease as well as primary care team. Right now, the patient is doing much better and seems to be at her baseline. Insight and judgment seems to be fair. Impulses are well controlled. IMPRESSION: As per history, schizoaffective disorder, delusional disorder, anxiety spectrum disorder, rule out mood disorder and anxiety disorder due to general medical condition. PLAN: Continue current management. Continue current medications. All medications were confirmed with the patient's pharmacy. We will follow up and advise accordingly. The patient requested to be followed up by this financial underwriter. We will continue to do so. Thank you very much for letting me participate in care of your patient. Should you have any questions, give me a call back. Geovanna Gallardo MD
--- NOTE | 2017-06-28 23:28 | PN ---
DATE: SUBJECTIVE: The patient is seen and examined on the bedside, looking comfortable, feeling better. No more chest pain. No nausea, vomiting, diarrhea. Urine is okay. No more retention. No fever. No chills. PHYSICAL EXAMINATION: VITAL SIGNS: Temperature 97.8, pulse 77, respiratory rate 20, blood pressure 145/92, pulse oximetry 95. HEENT: Head normocephalic, atraumatic. Eyes PERRLA. Extraocular muscles intact. Conjunctivae clear. Nose patent. NECK: Supple. No carotid bruit. No JVD or thyromegaly. CHEST: Bilaterally symmetrical. HEART: S1 and S2 positive. LUNGS: Clear to auscultation. ABDOMEN: Soft. Positive for organomegaly. EXTREMITIES: No edema. No cyanosis. NEUROLOGICAL: The patient is awake and alert. Moving all 4 extremities. No focal deficits. LABORATORY DATA: White blood cells 8.7, hemoglobin 14.1, hematocrit 44.9, platelets 219. Sodium 142, potassium 4, BUN 20, creatinine 0.9, glucose 87. MEDICATIONS: Xanax, Ecotrin, Os-Karl, Colace, Lovenox, Pepcid, Feosol, Prozac, Lasix, Claritin, Cozaar, Lopressor, Singulair, Zyprexa, prednisone tapering doses. ASSESSMENT AND PLAN: Ms. Karolina Puri, a 76-year-old lady with multiple medical problems, history of hypertension, hypercholesterolemia, bipolar, schizophrenia, nonobstructive coronary artery disease. A repeat stress test was in 2014, suspicious ischemic changes; however, refused the cardiac catheterization at that time. Echocardiogram was done. The patient has 3.37 second pause on telemetry. Hold beta blockers and Holter monitoring shows normal sinus rhythm, not requiring a permanent pacemaker. They discontinued the telemetry. Cardiac status stable as per ui ux engineer. Continue holding beta blockers. Continue aspirin, Lovenox. Seen by Dr. Geovanna Gallardo also and Dr. Gant, personal financial representative critical care. History of chronic obstructive pulmonary disease and asthma, sleep apnea syndrome, morbid obesity, chronic rash, history of bladder outlet obstruction. Physical therapy. Out of bed. We will follow up. Zulema Amaya MD [facility] # [id number]
--- NOTE | 2017-06-29 04:15 | PN ---
DATE: PULMONARY PROGRESS NOTE REFERRING PHYSICIAN: Dr. Amaya. SUBJECTIVE: She is lying in the bed, feels better. Cough and shortness of breath improved. No nausea, no vomiting. Complaining about Bruno catheter. No leg pain or leg swelling. OBJECTIVE: GENERAL: In no acute distress. VITAL SIGNS: Temperature is 98, heart rate is 81, respiratory rate is 20, blood pressure 122/66, pulse ox 65% on room air. HEENT: Moist mucous membrane. Crowded airway. Mallampati score is IV. NECK: Supple. No JVD. LUNGS: Has fair airflow with rhonchi. HEART: S1 and S2. ABDOMEN: Soft, nontender. No organomegaly. EXTREMITIES: No edema. NEUROLOGIC: Awake and alert, follows simple command. MEDICATIONS: She is on hydralazine 10 mg four times a day p.r.n., Claritin 10 mg daily, Colace 200 mg daily, losartan 100 mg daily, Ecotrin 81 mg daily, ferrous sulfate three times a day, Flomax 0.4 mg daily, folic acid 1 mg daily, Lasix 40 mg IV daily, metoprolol tartrate 25 mg twice a day, Lovenox 40 mg subcu daily, vitamin D and calcium 1 tablet daily, Pepcid 40 mg daily, prednisone 5 mg daily, Prozac 10 mg daily, Singulair 10 mg daily, multivitamins daily, Xanax 0.25 mg twice a day, olanzapine 5 mg a.m. and at bedtime. LABORATORY DATA: Reviewed and noted. No new changes in medication reported since yesterday. Urine culture has gram-negative rods. IMPRESSION AND PLAN: Chronic obstructive lung disease, may have sleep apnea syndrome, morbid obesity, hypertension, hyperlipidemia, bipolar disorder, chronic rash, bladder outlet obstruction, requiring Bruno catheter, has a urinary tract infection. We will start antibiotics. Spoke to nursing staff. Requested to discontinue Bruno catheter. Follow bladder scan, Will do straight catheter for urine more than 250. Spoke to the patient's family at bedside. All the questions answered. Out of bed to chair. Fall precaution. Thank you and we will follow with you. Elena Gant MD
[2017-06-29] MEDS: Multivitamin Therapeutic Tab PO SCH (08:02)
--- NOTE | 2017-06-29 08:44 | PN ---
DATE: 06/28/2017 REASON FOR DICTATION: Addendum for initial progress note dictated by our nurse practitioner, Shelly Foster. As mentioned above, patient has normal heart, no need for pacemaker. Patient had in 2014 abnormal stress test. Again discussed with the patient. Patient does not want cardiac catheterization and opted for medical treatment. So, plan is to keep her off from beta-reggie because patient is still mildly bradycardic. Continue losartan. Continue aspirin. Continue supplement multivitamin and iron supplement. Continue DVT prophylaxis. CVA status is stable. Patient is okay to be discharge from Cardiology point of view when medically stable. No further cardiac workup is planned because the patient is refusing cardiac catheterization. We will supplement multivitamin and iron preparation for anemia. Elena Sanchez MD
[2017-06-29] MEDS ORDERED: cefTRIAXone 1 gm 1 GM/100 ML BAG IVPB SCH (10:00)
[2017-06-29] MEDS: Enoxaparin 40 mg Syringe SC SCH (10:25)
[2017-06-29] MEDS: Calcium-Vit D 250 mg-125 Units Tab UD PO SCH (10:26)
[2017-06-29] MEDS: OLANZapine 5 mg Disintegrating Tab PO SCH ×2 (10:26→21:39)
[2017-06-29] MEDS: MIRABEGRON 25 MG PO SCH (10:27)
[2017-06-29 12:30] LABS: HEMOGLOBIN 15.5 g/dL (12.0-16.0); MEAN CELL VOLUME 92.4 fl (80.0-105.0); MEAN CORPUSCULAR HEMOGLOBIN 29.6 pg (25.0-35.0); MEAN CORPUSCULAR HGB CONC 32.1 g/dl (31.0-37.0); MEAN PLATELET VOLUME 11.7 fl (7.0-11.0); RBC 5.23 10^6/uL (3.5-6.1); RED CELL DISTRIBUTION WIDTH 14.4 % (11.5-14.5)
[2017-06-29 12:33] LABS: ALB/GLOB RATIO 1.4 (1.1-1.8); ALBUMIN 4.4 g/dL (3.0-4.8); ALT/SGPT 93 U/L (7-56); AST/SGOT 66 U/L (14-36); BLOOD UREA NITROGEN 44 mg/dL (7-21); CALCIUM 9.4 mg/dL (8.4-10.5); GFR AFRICAN-AMERICAN > 60; GFR NON-AFRICAN AMERICAN 54
--- NOTE | 2017-06-29 15:29 | PN ---
DATE: 06/29/2017 The patient is known to me. She has a history of schizophrenia and bipolar disorder, chronic urinary frequency and urgency as well as morbid obesity, congestive heart failure and other multiple medical problems. Urologically, the patient was having frequency and urgency. Bruno catheter was placed. Bruno catheter was removed last night and by nursing report, the patient was not voiding and a bladder scan showed significant volume and the Bruno was replaced. In the past, the patient has not had urinary retention. She does have chronic frequency, urgency and urge incontinence; occasionally, she has severe constipation which has worsened her urinary symptoms. The patient had been seen in the office. She had a cystoscopy. There is no evidence of bladder outlet obstruction or urethral stenosis. She has been scheduled for urodynamic evaluation, but has never had the exam done. Recently, the patient had a severe reaction to psychiatric medications with a severe skin rash. By report, the patient has currently been improving. She originally presented with chest pain and shortness of breath. This appears to have resolved and the patient has been seen by Cardiology as well as Internal Medicine. Urologically, the plan would be if the patient is stable for discharge, she can be discharged home with a Bruno catheter. She can follow up in my office for a voiding trial and we will plan to reschedule her for a urodynamic evaluation. The patient's urinary issues appear to be from constipation and her psychiatric medications. Francisco Royal MD
--- NOTE | 2017-06-29 20:59 | PN ---
DATE: 06/29/2017 REASON FOR CONSULTATION AND FOLLOWUP: Bradycardia, off Lopressor, stable. SUBJECTIVE: Patient denies any chest pain, shortness of breath or any palpitations. PHYSICAL EXAMINATION: GENERAL: Not in apparent distress. VITAL SIGNS: Temperature afebrile, heart rate , blood pressure 138/80. HEENT: PERRLA. Extraocular muscles intact.. NECK: Supple. No carotid bruit, no thyromegaly. CHEST: Clear to auscultation. HEART: S1 and S2 regular. ABDOMEN: Soft. EXTREMITIES: Clubbing and cyanosis negative. LABORATORY DATA: Blood workup as follows: WBC 10, hemoglobin 15.5, hematocrit 48.3, platelet count 210. Chemistry shows sodium 142, potassium 4.2, chloride 99, carbon dioxide 32, anion gap of 15, BUN 44, creatinine 1. Holter shows no arrhythmia, lowest heart rate was of 49, maximum was 100. No pause noted. IMPRESSION: History of stress test [id number] equivocal. Patient does not want cardiac catheterization, refusing. History of urinary retention, being seen by urologist, being arranged urodynamic monitoring as an outpatient. No episode of chest pain, no shortness of breath or any palpitation. Test suspicious of ischemia, patient refused cardiac catheterization. Most recent echo shows moderate tricuspid regurgitation. RECOMMENDATIONS: Continue to hold beta-reggie. No beta-reggie, no rate limiting calcium channel reggie. CVA status is stable. The patient needs urodynamic monitoring. Patient is cleared from cardiology point of view to go for urodynamic monitoring. Continue aspirin. Continue Lovenox. Continue Cozaar, hydralazine p.r.n. For urine retention, on Bruno catheter. Cleared from Cardiology point of view to be discharged. No further cardiac workup is planned or warranted. Continue losartan 100 mg, increase to 100. Continue hydralazine p.r.n. Metoprolol on hold because of bradycardia. Continue DVT prophylaxis. Patient is cleared to be discharge when stable medically. Thank you Dr. Amaya for providing us the opportunity in taking care of the patient, Karolina Puri. Elena Sanchez MD [facility] # [id number]
[2017-06-29 22:43] LABS: URINE BILIRUBIN NEGATIVE (NEGATIVE); URINE BLOOD SMALL (NEGATIVE); URINE GLUCOSE (UA) NEGATIVE (NEGATIVE); URINE LEUKOCYTE ESTERASE LARGE Leu/uL (NEGATIVE); URINE PROTEIN NEGATIVE mg/dL (<30 mg/dL); URINE UROBILINOGEN 0.2 E.U./dL (<1 E.U./dL)
[2017-06-29 22:45] LABS: URINE APPEARANCE CLEAR (CLEAR); URINE COLOR YELLOW (YELLOW)
[2017-06-29 22:48] LABS: URINE EPITHELIAL CELLS MANY /hpf (0-5); URINE WBC 15 - 20 /hpf (0-6)
--- NOTE | 2017-06-29 23:47 | PN ---
DATE: PULMONARY PROGRESS NOTE REFERRING PHYSICIAN: Zulema Amaya MD. SUBJECTIVE: She is lying in the bed, head at 45 degrees. Night was unremarkable. No headache. No rhinitis. No nausea, no vomiting. No diarrhea. Still has a Bruno catheter. No leg swelling. PHYSICAL EXAMINATION: GENERAL: In no acute distress. VITAL SIGNS: Temperature is 98, heart rate 83, respiratory rate is 20, blood pressure 138/80, pulse ox 93% on room air. HEENT: Moist mucous membrane. Crowded airway. NECK: Supple. No JVD. LUNGS: Have fair airflow with a few rhonchi. HEART: S1 and S2. ABDOMEN: Soft, nontender. No organomegaly. EXTREMITIES: No edema. NEUROLOGIC: Awake and alert. Follows simple command. MEDICATIONS: She is on hydralazine 10 mg four times a day p.r.n., Claritin 10 mg daily, Colace 200 mg daily, Cozaar 100 mg daily, Ecotrin 81 mg daily, ferrous sulfate 325 mg 3 times a day, Flomax 0.4 mg daily, Lasix 40 mg daily, metoprolol tartrate 25 mg twice a day, Lovenox 40 mg subcutaneous daily, calcium plus vitamin D daily, Pepcid 40 mg at bedtime, prednisone 5 mg daily, Prozac 10 mg daily, Rocephin 1 g IV daily, Singulair 10 mg daily, multivitamins daily, Tylenol p.r.n., Xanax 0.25 mg twice a day p.r.n., Zyprexa 5 mg in the a.m. and at bedtime. LABORATORY DATA: Shows hemoglobin 15.5, hematocrit 48.3, WBC 10, platelet is 210. INR 1.09. Sodium 142, potassium 4.2, chloride 99, bicarbonate 32, BUN 44, creatinine 1, glucose is 122, calcium is 9.4, AST 66, ALT 93, alkaline phosphate is 102, albumin is 4.4. Microbiology, urine culture has Proteus mirabilis which is resistant to cefazolin, cefepime, and nitrofurantoin. So, this is ESBL, though it is sensitive to Cipro and Bactrim. IMPRESSION AND PLAN: Chronic obstructive lung disease, sleep apnea syndrome, morbid obesity, hypertension, hyperlipidemia, bipolar disorder, chronic rash, bladder outlet obstruction, urinary tract infection. The patient seen by Urology. We will change antibiotics to Levaquin. Keep head elevated at 45 degrees. Sleep apnea precautions. We will discontinue prednisone. Out of bed to chair if possible. Thank you and we will follow with you. Elena Gant MD
--- NOTE | 2017-06-30 05:17 | PN ---
DATE: SUBJECTIVE: The patient is a 76-year-old female with history of schizophrenia, bipolar, was admitted with chest pain, cleared by the oil pipe inspector, now complaining about urinary symptoms. The patient used to have Bruno catheter, but she was complaining about discomfort, it was removed, now it is reported because the patient cannot urinate. Dr. Royal, urologist is on the case. Urged to the patient that just tolerate the Bruno catheter. No hematuria or hematochezia. No swelling of the legs. No chest pain. Right now no palpitation. PHYSICAL EXAMINATION: VITAL SIGNS: Temperature 98, pulse 74, blood pressure 120/74, respiratory rate 20. HEENT: Head normocephalic, atraumatic. Eyes PERRLA. Extraocular muscles intact. Conjunctivae clear. Nose patent. Mucous membrane moist. NECK: Supple. No carotid bruit. No JVD or thyromegaly. CHEST: Bilaterally symmetrical. HEART: S1 and S2 positive. LUNGS: Clear to auscultation. ABDOMEN: Soft. Bowel sounds present. No organomegaly. EXTREMITIES: No edema. No cyanosis. NEUROLOGICAL: The patient is awake and alert. Moving all 4 extremities. No focal deficits. MEDICATIONS: Hydralazine, Claritin, Colace, Cozaar, aspirin, Enulose, Feosol, Flomax, folic acid, Lasix, levofloxacin, Lopressor. LABORATORY DATA: White blood cells 10, hemoglobin 15.5, hematocrit 48.3, platelets 210. Sodium 142, potassium 4.2, BUN 44, creatinine 1, glucose 122, phosphorus 4.6, ASSESSMENT AND PLAN: Abnormal liver function tests with some mild hematuria, urinary tract infection, getting antibiotics. Seen by Dr. Royal, Dr. Sanchez and Dr. Gant with history of schizophrenia, bipolar, came with chest pain. The patient's stress test was positive a couple of month ago, but she refused catheterization. The patient is still refusing a cardiac catheterization. History of urinary retention, urodynamic monitoring outpatient. GI and DVT prophylaxis. Repeat labs. We will follow up. Zulema Amaya MD [facility] # [id number] MTDD
[2017-06-30] MEDS: Meropenem IV 1 gm in NS 50 ML IVPB SCH ×2 (05:33→09:14)
[2017-06-30] MEDS: Multivitamin Therapeutic Tab PO SCH (09:00)
[2017-06-30] MEDS: levoFLOXacin 500 MG TAB PO SCH (09:12)
[2017-06-30] MEDS: Calcium-Vit D 250 mg-125 Units Tab UD PO SCH (09:12)
[2017-06-30] MEDS: Enoxaparin 40 mg Syringe SC SCH (09:13)
[2017-06-30] MEDS: OLANZapine 5 mg Disintegrating Tab PO SCH ×2 (09:13→21:36)
[2017-06-30] MEDS: MIRABEGRON 25 MG PO SCH (09:14)
[2017-06-30] MEDS: POLYETHYLENE GLYCOL 3350 17 GM/Dose PACKET PO SCH (09:14)
--- NOTE | 2017-06-30 11:13 | PN ---
DATE: 06/30/2017 PULMONARY PROGRESS NOTE REFRRING PHYSICIAN: Dr. Zulema Amaya MD. SUBJECTIVE: She is out of bed to chair. Night was unremarkable. Constipated, did not have a bowel movement for the last 3 days or so. Still has a Bruno catheter. Mild cough. No sputum production. No nausea. No vomiting. No leg pain or leg swelling. OBJECTIVE: GENERAL: In no acute distress. VITAL SIGNS: Temp is 98, heart rate is 77, respiratory rate is 18, blood pressure 130/75, pulse ox 96% on room air. HEENT: Moist mucous membrane. Crowded airway. Mallampati score is 4. NECK: Supple. No JVD. LUNGS: Have a fair airflow with rhonchi. HEART: S1 and S2. ABDOMEN: Soft and nontender. No organomegaly. EXTREMITIES: No significant edema. NEUROLOGICAL: Awake and alert. Follows simple command. LABORATORY DATA: Shows no new lab is available since yesterday. Urine culture has Proteus mirabilis. MEDICATIONS: She is on hydralazine 10 mg four times daily p.r.n., Claritin 10 mg daily, Colace 200 mg daily, Cozaar 100 mg daily, Dulcolax 10 mg rectally p.r.n., Ecotrin 81 mg daily, lactulose 20 mg at bedtime, ferrous sulfate 324 mg 3 times a day, Flomax 0.4 mg daily, folic acid 1 mg daily, Lasix 40 mg daily, Levaquin 500 mg daily, metoprolol tartrate 25 mg twice a day, Lovenox 40 mg daily, meropenem 1 g IV every 12 hours, MiraLax is 17 g p.o. daily, Pepcid 40 mg at bedtime, prednisone is 5 mg daily, Prozac 10 mg daily, Singulair 10 mg daily, multivitamins daily, Tylenol p.r.n., Xanax p.r.n. basis, Zyprexa 5 mg a.m. and at bedtime. IMPRESSION AND PLAN: Chronic obstructive lung disease, sleep apnea syndrome, morbid obesity, hypertension, hyperlipidemia, bipolar disorder, chronic rash, bladder outlet obstruction, chronic Bruno catheter, constipation, urinary tract infection. Spoke to nursing staff. We will continue MiraLax and also give lactulose 20 g now. After 1 hour, may give Dulcolax. Fall precaution. Sleep apnea precaution. Continue bronchodilator. Thank you and we will follow with you. Elena Gant MD
--- NOTE | 2017-07-01 03:52 | HP ---
DATE OF EXAM: LOCATION: The patient was seen earlier this morning in 562, bed 1. CHIEF COMPLAINT: Weakness. HISTORY OF PRESENT ILLNESS: This is a 76-year-old female with past medical history of hypertension, schizoaffective anxiety, urinary tract infection, dyslipidemia, with osteoarthritis and the patient was seen in 11/2015 by me in the psychiatric care for concern of , now admitted, was found to have Proteus in the urine. Infectious Disease consultation requested. REVIEW OF SYSTEMS: A 12-point review of systems and review of systems reveals the patient has no fevers. She is having frequency and no abdominal pain, diarrhea, or constipation. No bright red blood per rectum. No melena. No headache or blurred vision. PAST MEDICAL HISTORY: Significant for hypertension, schizoaffective anxiety, urinary tract infection, dyslipidemia, osteoarthritis. PAST SURGICAL HISTORY: Includes cholecystectomy. ALLERGIC: PATIENT IS ALLERGIC TO CLONAZEPAM, QUETIAPINE, RISPERIDONE, TOMATOES, AND OLANZAPINE. PHYSICAL EXAMINATION: GENERAL: Patient is in bed with a temperature of 98, blood pressure is 111/60, respiratory rate of 20, and heart rate of 77. HEENT: Unremarkable. NECK: Supple. LUNGS: Have decreased breath sounds. HEART: Normal S1, S2. ABDOMEN: Soft, nontender. LABORATORY EXAMINATION: Reveals a white count of 9, hemoglobin of 12, platelets o f 192. Coagulation was noted. Chemistries reveal a BUN of 12, creatinine of 0.9. Urinalysis is noted, 15 to 20 wbc's, large leukocyte esterase. Microbiology reveals the urine culture is Proteus mirabilis, resistant to ampicillin, sensitive to Bactrim, ertapenem, cefazolin, Cipro, meropenem. Dr. Gant's note is reviewed. ASSESSMENT AND PLAN: This is a 76-year-old female with hypertension, schizoaffective, anxiety, urinary tract infection, dyslipidemia, and osteoarthritis. 1. Proteus mirabilis urinary tract infection. I was called by Dr. Amaya regarding discharge on p.o. antibiotics and may switch to p.o. Cipro. The patient's QTc is 495 and we will treat with Cipro 500 mg p.o. b.i.d. x10 days and Patient will follow with primary doctor as outpatient. Gene Magana MD
[2017-07-01] MEDS: Multivitamin Therapeutic Tab PO SCH (08:53)
[2017-07-01] MEDS: POLYETHYLENE GLYCOL 3350 17 GM/Dose PACKET PO SCH (10:42)
[2017-07-01] MEDS: Calcium-Vit D 250 mg-125 Units Tab UD PO SCH (10:42)
[2017-07-01] MEDS: levoFLOXacin 500 MG TAB PO SCH (10:43)
[2017-07-01] MEDS: OLANZapine 5 mg Disintegrating Tab PO SCH ×2 (10:43→23:17)
[2017-07-01] MEDS: MIRABEGRON 25 MG PO SCH (10:44)
[2017-07-01] MEDS: Enoxaparin 40 mg Syringe SC SCH (10:44)
[2017-07-01 19:46] LABS: BASO # 0.02 K/mm3 (0.0-2.0); BASO % 0.2 % (0.0-3.0); EOS # 0.1 (0.0-0.7); EOS % 1.7 % (1.5-5.0); GRAN # 6.12 (1.4-6.5); GRAN % 75.9 % (50.0-68.0); LYMPH # 1.1 (1.2-3.4); LYMPH % 13.2 % (22.0-35.0); MEAN CELL VOLUME 91.3 fl (80.0-105.0); MEAN CORPUSCULAR HEMOGLOBIN 29.2 pg (25.0-35.0); MEAN PLATELET VOLUME 11.6 fl (7.0-11.0); MONO # 0.7 (0.1-0.6); RBC 4.8 10^6/uL (3.5-6.1); WHITE BLOOD COUNT 8.1 10^3/ul (4.5-11.0)
--- NOTE | 2017-07-01 19:49 | CT ---
EXAM: CT Head Without Intravenous Contrast CLINICAL HISTORY: 76 years old, female; Injury or trauma; Fall; Initial encounter; Blunt trauma (contusions or hematomas); Consciousness not specified TECHNIQUE: Axial computed tomography images of the head/brain without intravenous contrast. All CT scans at this facility use one or more dose reduction techniques, viz.: automated exposure control; ma/kV adjustment per patient size (including targeted exams where dose is matched to indication; i.e. head); or iterative reconstruction technique. Coronal and sagittal reformatted images were created and reviewed. COMPARISON: CT - HEAD W/O CONTRAST 2015-11-16 13:00 FINDINGS: Brain: Atrophy. Bilateral white matter hypoattenuation most consistent with chronic ischemic small vessel changes. Vascular calcification No hemorrhage. No edema. Ventricles: No hydrocephalus. Bones: Skull is intact. Hyperostosis frontalis interna. Asymmetric angulation of the left zygomatic arch, appearance is similar to prior study. Mild nasal bone irregularity and angulation to the right. Appearance is somewhat similar, but question slight increase compared to prior study. Correlate clinically if there is acute injury. Sinuses: No acute sinusitis. Mastoid air cells: No mastoid effusion. IMPRESSION: No CT evidence of acute intracranial abnormality. Chronic changes as above. Asymmetric angulation of the left zygomatic arch, appearance is similar to prior study. Mild nasal bone irregularity and angulation to the right. Appearance is somewhat similar, but question slight increase compared to prior study. Correlate clinically if there is acute injury.
--- NOTE | 2017-07-01 19:51 | CT ---
EXAM: CT Maxillofacial Without Intravenous Contrast CLINICAL HISTORY: 76 years old, female; Injury or trauma; Fall; Initial encounter; Blunt trauma (contusions or hematomas); Orbit/periorbital and maxilla; Bilateral TECHNIQUE: Axial computed tomography images of the face without intravenous contrast. All CT scans at this facility use one or more dose reduction techniques, viz.: automated exposure control; ma/kV adjustment per patient size (including targeted exams where dose is matched to indication; i.e. head); or iterative reconstruction technique. Coronal and sagittal reformatted images were created and reviewed. COMPARISON: No relevant prior studies available. FINDINGS: Bones/joints: Asymmetric angulation of the left zygomatic arch, appearance is similar to prior study. Mild nasal bone irregularity and angulation to the right. Appearance is somewhat similar, but question slight increase compared to prior study. Correlate clinically if there is acute injury. Soft tissues: No significant abnormality appreciated on CT. Correlate clinically. Orbits: No acute abnormality as visualized. Sinuses: No acute abnormality as visualized. No air-fluid levels. IMPRESSION: Asymmetric angulation of the left zygomatic arch, appearance is similar to prior study. Mild nasal bone irregularity and angulation to the right. Appearance is somewhat similar, but question slight increase compared to prior study. Correlate clinically if there is acute injury.
--- NOTE | 2017-07-01 19:53 | PCM.RRT ---
CONSTRUCTION AND MAINTENANCE INSPECTOR Nurse Assessment - Situation Date: 07/01/17 Time CONSTRUCTION AND MAINTENANCE INSPECTOR was called: 18:22 CONSTRUCTION AND MAINTENANCE INSPECTOR Responder Arrival Time: 18:25 CONSTRUCTION AND MAINTENANCE INSPECTOR Location:: [address] [place] [address] Room Number: 562-1 CONSTRUCTION AND MAINTENANCE INSPECTOR Called By: RN - IV IV Inserted during CONSTRUCTION AND MAINTENANCE INSPECTOR?: No I.Reason for CONSTRUCTION AND MAINTENANCE INSPECTOR - A) Acute Change in Patient: Subjective: Ms Karolina Puri, 76F, PMHx bipolar, schizophrenia, CAD, HTN, (showed mild mitral and tricuspid regurgitation . Preserved LV function) c/o chest pressure and orthopnea. During this hospital stay, 3.37 seconds pause on telemetry. Held Betablocker and holter monitor showed NSR not requiring PPM. Code star was called for unwitnessed fall. Patient's roommate's family notified nursing that patient had fallen. When arrived in room patient noted to be face down on floor beside bed. Patient cervical spine was stabilized and patient was placed on back board with appropriate cooperation. Upon initial evaluation patient was noted to be able to move her upper and lower extremities spontaneously, patient was without wheatley sign or racoon sign. Patient was noted to have small laceration above her left eye with small amount of fresh blood. Patient complained of bilateral arm numbness described as pins and needles. Patient was able to move all four extremities during transport towards imaging. Cervical spine was stabilized with rolled towels and taping down upon back board. Patient was taken to CT for imaging of cervical spine, chest, head, maxilla facial as well as x ray for shoulder. Patient is unable to recall events leading to fall or to report specific neurological deficits other than arm numbness. House doctor [facility] notified primary Dr. Brady, Dr. Gamez with neurology , and Dr. Sanchez with cardiology for possible syncope. Patient was brought back to her room for further monitoring. - Neurological Status (Select all that apply): Alert, Responsive, Verbal - Respiratory Oxygen Delivery Method: Nasal Cannula @L/min (3L/min) - Constitutional Appears: Non-toxic - Head Head Exam: ATRAUMATIC, NORMAL INSPECTION, NORMOCEPHALIC Additional Comments: negative wheatley sign, negative racoon sign, small incision over left eyebrow with fresh blood - Eyes Eye Exam: EOMI, PERRL - Respiratory Exam Respiratory Exam: Clear to Ausculation Bilateral, NORMAL BREATHING PATTERN. absent: Rales, Rhonchi, Wheezes - Cardiovascular Exam Cardiovascular Exam: REGULAR RHYTHM, +S1, +S2 - GI/Abdominal Exam GI & Abdominal Exam: Soft, Normal Bowel Sounds. absent: Tenderness - Neurological Exam Neurological Exam: Alert, Awake, Oriented x3 Additional exam: Patient able to move all four extremities spontaneously, patient unable to squeeze with both hands, patient has pain sense intact with both arms bilateral Plan - Assessment of Findings&Treatment Plan Code Star - Mechanical Fall vs. Syncopal episode - Head CT: no acute findings for intracranial bleed - Maxilla Orbital facial CT - Cervical spine CT - Chest CT - Bilateral shoulder x-ray - Neuro checks, Vital Signs Q1Hx8, Q2Hx4 - Transfer to telemetry due to hx of pause - Cardiology Consult - Neurology Consult - Notified Primary: Dr. Brady - Aspiration precaution - Held Xanax - Continue holding heart rate limiting medications - CBC Q6Hx3, CMP, Mg, Phos, BMP, Trops
--- NOTE | 2017-07-01 20:07 | CT ---
EXAM: CT Cervical Spine Without Intravenous Contrast CLINICAL HISTORY: 76 years old, female; Injury or trauma; Fall; Initial encounter; Blunt trauma TECHNIQUE: Axial computed tomography images of the cervical spine without intravenous contrast. All CT scans at this facility use one or more dose reduction techniques, viz.: automated exposure control; ma/kV adjustment per patient size (including targeted exams where dose is matched to indication; i.e. head); or iterative reconstruction technique. Coronal and sagittal reformatted images were created and reviewed. COMPARISON: No relevant prior studies available. FINDINGS: Vertebrae/discs/spinal canal/neural foramina: Multilevel degenerative changes. Degenerative disc disease with disc osteophyte formation. Facet arthropathy. Associated impression on the central canal and neuroforaminal narrowing. Findings most severe at C3 to C6. At C3 to C4 there is moderately severe neural foraminal narrowing on the left. Moderate neuroforaminal narrowing noted at C4 to C5. No acute fracture visualized. No severe spinal canal stenosis. Soft tissues: Carotid calcification. Lung apices: No acute abnormality as visualized. IMPRESSION: Negative for acute fracture. Multilevel degenerative changes as above. More sensitive evaluation can be performed with MRI. Carotid calcification. Further evaluation can be performed with dedicated ultrasound.
[2017-07-01 20:14] LABS: B-TYPE NATRIURETIC PEPTIDE 113 pg/mL (0-450); TROPONIN I < 0.01 ng/mL
--- NOTE | 2017-07-01 20:14 | CT ---
EXAM: CT Chest Without Intravenous Contrast CLINICAL HISTORY: 76 years old, female; Injury or trauma; Fall; Initial encounter; Blunt trauma (contusions or hematomas) TECHNIQUE: Axial computed tomography images of the chest without intravenous contrast. All CT scans at this facility use one or more dose reduction techniques, viz.: automated exposure control; ma/kV adjustment per patient size (including targeted exams where dose is matched to indication; i.e. head); or iterative reconstruction technique. Coronal and sagittal reformatted images were created and reviewed. COMPARISON: CT - CHEST W/O CONTRAST 2014-12-28 14:00 FINDINGS: Lungs: Bilateral atelectasis/scarring. Multiple bilateral lung nodules, measuring up to 7 mm, unchanged in appearance from prior study. Pleural space: No pneumothorax. No significant effusion. Heart: No cardiomegaly. No significant pericardial effusion. Bones/joints: Displaced fracture the right posterior 10th rib appears to demonstrates some callus formation suggesting not acute, but new compared to prior study. Correlate clinically. Degenerative changes. Vasculature: Atherosclerosis. Coronary artery calcification visualized. No thoracic aortic aneurysm. Limited evaluation without contrast. Lymph nodes: Shotty nodes. Small hiatal hernia. Radiodense material within the stomach, correlate with recent medication ingestion. IMPRESSION: Displaced fracture the right posterior 10th rib appears to demonstrates some callus formation suggesting not acute, but new compared to prior study. Correlate clinically. Multiple bilateral lung nodules, measuring up to 7 mm, unchanged in appearance from prior study. Please see additional details/findings as above. Correlate clinically. Followup as warranted.
[2017-07-01 20:30] LABS: ALB/GLOB RATIO 1.5 (1.1-1.8); ALBUMIN 3.7 g/dL (3.0-4.8); ALT/SGPT 51 U/L (7-56); AST/SGOT 29 U/L (14-36); BLOOD UREA NITROGEN 46 mg/dL (7-21); CALCIUM 9.4 mg/dL (8.4-10.5); GFR AFRICAN-AMERICAN 38; GFR NON-AFRICAN AMERICAN 31
--- NOTE | 2017-07-01 23:06 | PN ---
DATE: 07/01/2017 SUBJECTIVE: The patient is in bed, in no acute distress, nontoxic. PHYSICAL EXAMINATION: VITAL SIGNS: Temperature is 98, blood pressure is 140/90, respiratory rate of 18, heart rate of 88. HEENT: Unremarkable. NECK: Supple. LUNGS: Have decreased breath sounds. HEART: Normal S1, S2. ABDOMEN: Soft. LABORATORY DATA: Reveals the patient has a white count of 10,000, hemoglobin of 15, and platelets of 210. Chemistries are noted, BUN of 44 and creatinine of 1. Urine culture is Proteus mirabilis, sensitive to Cipro. ASSESSMENT AND PLAN: This is a 76-year-old female with hypertension, schizoaffective, anxiety, urinary tract infection, dyslipidemia, osteoarthritis with Proteus mirabilis urinary tract infection, on p.o. Cipro with the patient's QTc is 495. Would complete p.o. Cipro. Dr. Gant has started Levaquin. The patient is already on Cipro and 2 quinolones would not be necessary. We will discontinue Levaquin and continue p.o. Cipro x10 days. Gene Magana MD
--- NOTE | 2017-07-01 23:42 | PN ---
DATE: 07/01/2017 PULMONARY PROGRESS NOTE REFERRING PHYSICIAN: Dr. Zulema Amaya MD. SUBJECTIVE: She is lying in the bed. Night was unremarkable. 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 Wants Bruno catheter out. No nausea. No vomiting. No leg pain or leg swelling. OBJECTIVE: GENERAL: In no acute distress. VITAL SIGNS: Temp is 98, heart rate is 65, respiratory rate is 18, blood pressure 135/71, pulse ox 97% on room air. HEENT: Moist mucous membrane. Crowded airway. NECK: Supple. No JVD. LUNGS: Have a fair airflow with rhonchi. HEART: S1 and S2. ABDOMEN: Soft, nontender, nondistended. EXTREMITIES: There is no edema. NEUROLOGICAL: Awake and alert. Follows simple command. MEDICATIONS: She is on hydralazine 10 mg four times a day p.r.n., Cipro 500 mg every 12 hours, Claritin 10 mg daily, Colace 200 mg daily, Cozaar 100 mg daily, Dulcolax 10 mg rectally daily, Ecotrin 81 mg daily, lactulose 20 mg at bedtime, ferrous sulfate 325 mg three times a day, Flomax 0.4 mg daily, folic acid 1 mg daily, Lasix 40 mg daily, metoprolol tartrate 25 mg twice a day, MiraLax 17 g daily, Os-Karl, calcium plus vitamin one tab daily, Pepcid 40 mg daily, Prozac 10 mg daily, Singulair 10 mg daily, multivitamins daily, Tylenol p.r.n. basis, Xanax 0.25 mg twice a day, Zyprexa 5 mg daily. LABORATORY DATA: Reviewed, noted. No new changes in medication reported since yesterday. Microbiology, urine culture has gram-negative rods. IMPRESSION AND PLAN: Chronic obstructive lung disease, urinary tract infection, morbid obesity, hypertension, hyperlipidemia, bipolar disorder, chronic rash, bladder outlet obstruction, has a Bruno catheter. Spoke to nursing staff. The patient refused Dulcolax this morning. Spoke to the patient in detail, explained to her relation between constipation and bladder outlet obstruction, she is willing to use Dulcolax. Continue antibiotics as per Infectious Disease. Keep head at 45 degrees. Sleep apnea precaution and avoid sedation. Gastric prophylaxis. Sequential compression device to lower extremity. Followup plan in the morning. Thank you and we will follow with you. Elena Gant MD
[2017-07-02 01:21] LABS: BASO # 0.01 K/mm3 (0.0-2.0); BASO % 0.1 % (0.0-3.0); EOS # 0.1 (0.0-0.7); EOS % 0.4 % (1.5-5.0); GRAN # 9.88 (1.4-6.5); GRAN % 85.6 % (50.0-68.0); HEMOGLOBIN 14.5 g/dL (12.0-16.0); LYMPH # 0.9 (1.2-3.4); LYMPH % 8.1 % (22.0-35.0); MEAN CELL VOLUME 91.2 fl (80.0-105.0); MEAN CORPUSCULAR HEMOGLOBIN 28.9 pg (25.0-35.0); MEAN CORPUSCULAR HGB CONC 31.7 g/dl (31.0-37.0); MEAN PLATELET VOLUME 11.7 fl (7.0-11.0); MONO # 0.7 (0.1-0.6); MONO % 5.8 % (1.0-6.0); RBC 5.02 10^6/uL (3.5-6.1); RED CELL DISTRIBUTION WIDTH 14.2 % (11.5-14.5); WHITE BLOOD COUNT 11.6 10^3/ul (4.5-11.0)
[2017-07-02 07:37] LABS: BASO # 0.01 K/mm3 (0.0-2.0); BASO % 0.1 % (0.0-3.0); EOS # 0.1 (0.0-0.7); GRAN # 7.34 (1.4-6.5); HEMOGLOBIN 13.8 g/dL (12.0-16.0); LYMPH # 1.3 (1.2-3.4); LYMPH % 12.9 % (22.0-35.0); MEAN CELL VOLUME 91.4 fl (80.0-105.0); MEAN CORPUSCULAR HEMOGLOBIN 28.9 pg (25.0-35.0); MEAN CORPUSCULAR HGB CONC 31.6 g/dl (31.0-37.0); MEAN PLATELET VOLUME 11.7 fl (7.0-11.0); RBC 4.78 10^6/uL (3.5-6.1); RED CELL DISTRIBUTION WIDTH 14.2 % (11.5-14.5); WHITE BLOOD COUNT 9.7 10^3/ul (4.5-11.0)
[2017-07-02 08:05] LABS: ALB/GLOB RATIO 1.4 (1.1-1.8); ALBUMIN 3.9 g/dL (3.0-4.8); CALCIUM 9.1 mg/dL (8.4-10.5)
[2017-07-02] MEDS: Multivitamin Therapeutic Tab PO SCH (08:41)
--- NOTE | 2017-07-02 09:53 | PN ---
DATE: 06/30/2017 SUBJECTIVE: The patient is a 76-year-old female. The patient was seen and examined at the bedside, looking comfortable. No nausea, vomiting, or diarrhea. No hematuria or hematochezia. No swelling of the legs. No chest pain. No palpitation. No headache, no dizziness. Sitting on the chair, feeling better. PHYSICAL EXAMINATION: VITAL SIGNS: Temperature 98, heart rate 77, respiratory rate 18, blood pressure 130/70, pulse oximetry 96% on room air. HEENT: Head normocephalic, atraumatic. Eyes, PERRLA. Extraocular muscles intact. Conjunctivae clear. Nose patent. Mucous membrane moist. NECK: Supple. No carotid bruit. No JVD or thyromegaly. CHEST: Bilaterally symmetrical. HEART: S1 and S2 positive. LUNGS: Clear to auscultation. ABDOMEN: Soft. Bowel sounds present. No organomegaly. EXTREMITIES: No edema. No cyanosis. NEUROLOGICAL: The patient is awake and alert. Moving all 4 extremities. No focal deficits. LABORATORY DATA: We do not have recent lab today, but I reviewed old labs. Urine culture shows Proteus mirabilis. MEDICATIONS: Hydralazine, Claritin, Colace, Cozaar, Dulcolax, Ecotrin, lactulose, ferrous sulfate, Flomax, folic acid, Lasix, Levaquin, metoprolol, Pepcid, prednisone, Singulair, multivitamin, Tylenol, Xanax, and Zyprexa. ASSESSMENT AND PLAN: Ms. Karolina Puri is a 76-year-old lady with urinary tract infection, chronic obstructive lung disease, sleep apnea syndrome, morbid obesity, hypertension, hypercholesterolemia, bipolar disorder, chronic rash, bladder outlet obstruction, chronic Bruno catheter. Constipation is getting better, getting MiraLax, getting antibiotics. Fall precautions, sleep apnea precautions. Seen by Dr. Gant, Dr. Royal, urologist and Dr. Sanchez, playback operator. ID consult called with Dr. Magana. We will await for recommendation. Repeat labs. Dr. Magana started on ciprofloxacin. Gastrointestinal and deep venous thrombosis prophylaxis. Repeat labs. We will follow up. Zulema Amaya MD [facility] # [id number]
--- NOTE | 2017-07-02 09:53 | RAD ---
PROCEDURE: Radiographs of the Right Shoulder HISTORY: fall COMPARISON: No prior. FINDINGS: BONES: Normal. No fracture. JOINTS: Normal. Glenohumeral and acromioclavicular joints preserved. No osteoarthritis. SOFT TISSUES: Normal. OTHER FINDINGS: None. IMPRESSION: Normal radiographs of the right shoulder.
--- NOTE | 2017-07-02 09:54 | RAD ---
PROCEDURE: Radiographs of the Left Shoulder HISTORY: fall COMPARISON: No prior. FINDINGS: BONES: There is a previous fracture of the humerus with a plate and screws. JOINTS: Normal. Glenohumeral and acromioclavicular joints preserved. No osteoarthritis. SOFT TISSUES: Normal. OTHER FINDINGS: None. IMPRESSION: No acute findings
[2017-07-02] MEDS ORDERED: Sodium Chloride 0.9% 250 ML IV SCH (09:57)
[2017-07-02] MEDS ORDERED: Sodium Chloride 0.9% 1,000 ML IV SCH ×2 (10:00→12:21)
--- NOTE | 2017-07-02 10:45 | CON ---
DATE: 06/29/2017 HISTORY OF PRESENT ILLNESS: Patient is a 76-year-old white female with a history of schizoaffective disorder, who is being treated on the [facility] site for evaluation of abdominal pain. Psychiatry has been following the patient for mediation management. I reviewed Dr. Gallardo's notes as she has been seen by her for the last 2 days. Currently, patient reports that she is feeling better, she slept well, and she denies any depressed. She denied having any thoughts of harming herself or others or side effects to her current medications. I met with her at bedside this morning as noted and she continues to be alert and oriented to month, location, and year. Patient reports that she is doing pretty good except she has some discomfort related to her catheters. She feels psychiatrically stable. Still has some dizziness "off and on." She slept well last night and she is currently tolerating her psychiatric medications. The thought process is generally coherent and responses are relevant to questioning, her focus is fair, and delusions were not elicited. Anxiety is generally under control and patient reports that she has hope about the future. Regarding her energy level, she reports that she feels . Generally, there were no signs of psychosis and she is generally pleasant and improving based on my conversation with her and her prior notes. Vital signs were reviewed by this provider as well as recent laboratory work. RELEVANT PSYCHIATRIC MEDICATION: Includes Xanax 0.25 mg p.o. b.i.d. p.r.n. which patient received, last dose was on 06/26/2017, which was 3 days ago as well as Zyprexa Zydis which she has been receiving on a regular basis as well as Prozac 10 mg daily, which she has been receiving on a daily basis as well. 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 PLAN: We will continue with current medication as noted by Dr. Gallardo. Her medications were confirmed with patient's pharmacy. She is improving and she is psychiatrically stable. There appears to be no acute indication for Psychiatry to continue followup. She does not meet criteria for psychiatric inpatient stabilization at this time. Psychiatry will sign off. Please re-consult p.r.n. if there are any acute changes to the patient's functioning. Kendal Solo MD
[2017-07-02] MEDS: OLANZapine 5 mg Disintegrating Tab PO SCH ×2 (11:07→23:09)
[2017-07-02] MEDS: Calcium-Vit D 250 mg-125 Units Tab UD PO SCH (11:08)
[2017-07-02] MEDS: MIRABEGRON 25 MG PO SCH (11:09)
[2017-07-02] MEDS: POLYETHYLENE GLYCOL 3350 17 GM/Dose PACKET PO SCH (11:09)
--- NOTE | 2017-07-02 14:03 | PN ---
DATE: 07/01/2017 SUBJECTIVE: The patient is 76-year-old female. The patient was seen and examined on the bedside and in the morning, looking comfortable. No complaints. Night was without any problem. No hematuria or hematochezia. No swelling of the leg. No chest pain or palpitation. No fever, no chills, but later on I received call from the hospital that there was rapid response. The patient was found on the floor on ilia puri. Hospital Team did examination and found the patient has just laceration on the face, otherwise there is no main injury. PHYSICAL EXAMINATION: VITAL SIGNS: Temperature 98.1, heart rate 65, respiratory rate 18, blood pressure 140/70, pulse oximetry 97% on room air. HEENT: Head normocephalic, atraumatic. Eyes PERRLA. Extraocular muscles intact. Conjunctivae clear. Nose patent. Mucous membrane moist. NECK: Supple. No carotid bruit. No JVD or thyromegaly. CHEST: Bilaterally symmetrical. HEART: S1 and S2 positive. LUNGS: Clear to auscultation. ABDOMEN: Soft. Bowel sounds positive. No organomegaly. EXTREMITIES: No edema. No cyanosis. NEUROLOGIC: The patient is awake and alert. Moving all 4 extremities. No focal deficits. MEDICATIONS: Hydralazine, Claritin, Colace, Cozaar, Dulcolax, Ecotrin, ferrous sulfate, Flomax, Lasix, MiraLax, Os-Karl, Pepcid, Prozac. LABORATORY DATA: We do not have recent labs today, but I reviewed old labs. ASSESSMENT AND PLAN: Ms. Karolina Puri is a 76-year-old lady with history of schizophrenia, bipolar, chronic obstructive lung disease, urinary tract infection, morbid obesity, hypertension, hypercholesterolemia, skin rash, chronic bladder outlet obstruction, constipation. Continue antibiotics as per Infectious Disease, sleep apnea syndrome, gastric prophylaxis, sequential compression device to lower extremities. The patient is noncompliant, sometime refusing medications. CAT scan of the chest done. Has displaced fracture in the right posterior 10th rib, appears to be demonstrating some callus formation suggesting of old fracture, but new compared to the prior study, multiple bilateral lung nodules needing up to 7 mm, unchanged in the appearance from the past study. The patient has rapid response due to fall and even was found on the floor second time. I appreciated help . We will follow up. Zulema Amaya MD MTDWei
--- NOTE | 2017-07-02 18:48 | CON ---
DATE: 07/02/2017 NEUROLOGY CONSULTATION REASON FOR CONSULTATION: Episode of passing out. HISTORY OF PRESENTING ILLNESS: The patient is a 76-year-old female who we have been asked for evaluation of an episode of passing out. The patient herself does not remember what happened. The patient apparently fell with the head down and hit her head. The patient did have loss of consciousness. Apparently, the patient's roommate and family noted that the patient had fallen. The patient denied any focal weakness in the arms or legs. Denied any chest pain or palpitation prior to passing out. Denies any other complaints. REVIEW OF SYSTEMS: Denies any headache. Positive for dizziness. Denies any chest pain, shortness of breath, abdominal pain, constipation, diarrhea, dysuria, cough, production. Positive for pain in the limbs. Past medical history includes hypertension, coronary artery disease, bipolar disorder, schizophrenia. CURRENT MEDICATIONS: Include hydralazine, ciprofloxacin, Claritin, Colace, Cozaar, Dulcolax, Ecotrin, ferrous sulfate, folic acid, Flomax, Lasix, metoprolol, which is on old now. Prozac, Singulair, Pepcid and Zyprexa. ALLERGIES: CLONAZEPAM, OLANZAPINE, QUETIAPINE, RISPERDAL AND TOMATOES. SOCIAL HISTORY: She is a former smoker. Denies use of alcohol or illicit drugs. FAMILY HISTORY: Reviewed and noncontributory to the case. PHYSICAL EXAMINATION: GENERAL: The patient is an elderly female lying on the bed, in no acute distress. VITAL SIGNS: Her blood pressure is 101/78, heart rate is 57 per minute, breathing at the rate of 16 per minute, temperature of 98.2 degrees Fahrenheit. HEENT: Head is normocephalic. There is abrasion which is bandaged on the forehead. NECK: Supple. There are no carotid bruit. LUNGS: Clear. CVS: S1 and S2 audible. No murmurs. ABDOMEN: Soft and nontender with bowel sounds present. NEUROLOGY: Mental status, the patient is sleepy but easily arousable. She knows the year, the month. She knows where she is. She follows all simple commands. Cranial nerve examination: Pupils 3 mm bilaterally reactive to light. Visual saavedra are full. Extraocular movements are intact. There is no facial asymmetry. Palate is upgoing bilaterally and tongue is midline. Motor examination, tone is normal. Power is 3-4/5 bilaterally in all extremities. Reflexes +2 and symmetrical. Plantars downgoing bilaterally. Cerebellar examination, [id number] shows no dysmetria. Gait is deferred at the moment. Sensory examination: There is mild decreased vibration in feet. Intact to soft touch, pinprick. LABORATORY DATA: Labs reviewed shows WBC of 9.7, hemoglobin 13.8, hematocrit 43.7 and platelets of 187. Her INR is 1.09. Sodium is 139, potassium 4.8, chloride 99, dioxide content of 28, BUN of 57, creatinine 2 and glucose of history of 107. She had CT scan of the cervical spine, which is negative for acute fracture, multilevel degenerative changes noted. She also had a CT scan of the head, which shows no CT evidence of acute intracranial abnormality.. IMPRESSION: 1. Syncope. Rule out seizure versus cardiac arrhythmia. 2. History of bipolar disorder. RECOMMENDATIONS: 1. The patient to have an electroencephalogram. 2. The patient to have cardiac monitoring to look for any cardiac arrhythmias. 3. The patient has mild bradycardia for which beta blockers are held. 4. Please continue other treatment and supportive care. Thank you for the opportunity to participate in the care of this patient. Aníbal Gamez MD MTDD
--- NOTE | 2017-07-02 20:01 | PN ---
DATE: 07/02/2017 REASON FOR CONSULTATION AND FOLLOWUP: Near syncope. The patient was in 5R. SUBJECTIVE: The patient denies any chest pain, shortness of breath or any palpitation. Moved to telemetry. PHYSICAL EXAMINATION: GENERAL: Not in any apparent distress. VITAL SIGNS: Temperature afebrile, heart rate 56, blood pressure 98/50. HEENT: PERRLA. Extraocular muscles intact. NECK: Supple. No carotid bruit or thyromegaly. CHEST: Clear to auscultation. HEART: S1 and S2 regular. ABDOMEN: Soft. EXTREMITIES: Clubbing and cyanosis negative. IMPRESSION: This is a 76-year-old female with past medical history significant for urinary tract infection, being arranged for urodynamic monitoring, had one episode of near syncope when the patient was in bathroom and she felt dizzy, had rapid response, moved to telemetry; bradycardic; denies any chest pain, shortness of breath or any palpitation. The patient's most recent echo, ejection fraction , preserved left ventricular function, mild mitral regurgitation. The patient had a stress test in 2014, equivocal, refused stress test, again asked two days ago, the patient does not want cardiac catheterization. The patient has a Holter monitor because the patient was on beta-reggie and at one point, heart rate was 3.25 second pause. Holter dated 06/25/2017, lowest heart rate was 49 and highest has been 100, no pause noted. RECOMMENDATION: We will do the tilt orthostatic for hypotension. The patient went into acute renal failure possibly secondary to hypovolemic or renal insult. We will start 250 bolus saline followed by 75 mL an hour, overnight monitor closely. Probably this is most likely due to his hypotension, orthostatic. We will also discontinue losartan and hold Lasix today, continue aspirin, continue ferrous sulfate. We will check for orthostatic. Further recommendation depending upon the hospital course. We will get EKG and we will get orthostatic hypotension. Her last EKG on 06/27/2017 revealed normal sinus. Avoid beta-reggie because the patient becomes very bradycardic and off beta reggie Holter did not show any significant bradyarrhythmia. We will discontinue losartan as mentioned, hydralazine p.r.n. We will follow with you. Thank you, Dr. Amaya, for providing us the opportunity in taking care of the patient, Karolina Puri. Elena Sanchez MD
--- NOTE | 2017-07-02 21:32 | CP.PCM.PN ---
Subjective - Date & Time of Evaluation Date of Evaluation: 07/02/17 Time of Evaluation: 10:30 - Subjective Subjective: No fevers, not in distress, feeling beter. Objective - Vital Signs/Intake and Output Vital Signs (last 24 hours): Temp Pulse Resp BP Pulse Ox 98.2 F 56 L 18 99/48 L 96 07/02/17 18:00 07/02/17 18:00 07/02/17 18:00 07/02/17 18:00 07/02/17 18:00 Intake and Output: 07/02/17 07/03/17 18:59 06:59 Intake Total 360 Balance 360 - Medications Medications: Current Medications Acetaminophen (Tylenol 325mg Tab) 650 mg PO Q6H PRN PRN Reason: Pain, moderate (4-7) Last Admin: 07/02/17 18:15 Dose: 650 mg Alprazolam (Xanax) 0.25 mg PO BID PRN; Protocol PRN Reason: Anxiety Stop: 07/03/17 10:01 Last Admin: 06/26/17 22:14 Dose: 0.25 mg Aspirin (Ecotrin) 81 mg PO DAILY [facility] Last Admin: 07/02/17 11:08 Dose: 81 mg Bisacodyl (Dulcolax) 10 mg RC DAILY [facility] Last Admin: 07/02/17 09:00 Dose: Not Given Calcium/Vitamin D (Oscal-D 250 Mg-125 Units Tab) 1 tab PO DAILY [facility] Last Admin: 07/02/17 11:08 Dose: 1 tab Ciprofloxacin (Cipro) 500 mg PO Q12 ANTONIA PRN Reason: Protocol Stop: 07/10/17 16:16 Last Admin: 07/02/17 11:08 Dose: 500 mg Docusate Sodium (Colace) 200 mg PO DAILY [facility] Last Admin: 07/02/17 11:08 Dose: 200 mg Famotidine (Pepcid) 40 mg PO HS [facility] Last Admin: 07/01/17 23:17 Dose: 40 mg Ferrous Sulfate (Feosol) 324 mg PO TID [facility] Last Admin: 07/02/17 17:09 Dose: 324 mg Fluoxetine HCl (Prozac) 10 mg PO DAILY [facility] Last Admin: 07/02/17 11:17 Dose: 10 mg Folic Acid (Folic Acid) 1 mg PO DAILY [facility] Last Admin: 04/23/18 11:08 Dose: 1 mg Hydralazine HCl (Apresoline) 10 mg PO QID PRN PRN Reason: for sbp>170 Sodium Chloride (Sodium Chloride 0.9%) 1,000 mls @ 50 mls/hr IV .Q20H [facility] Stop: 07/02/17 22:00 Last Admin: 07/02/17 12:52 Dose: 50 mls/hr Lactulose (Enulose) 20 gm PO HS [facility] Stop: 07/02/17 23:59 Last Admin: 07/02/17 01:13 Dose: Not Given Loratadine (Claritin) 10 mg PO DAILY [facility] Last Admin: 07/02/17 11:17 Dose: 10 mg Losartan Potassium (Cozaar) 100 mg PO DAILY [facility] Metoprolol Tartrate (Lopressor) 25 mg PO BID [facility] Last Admin: 06/24/17 17:59 Dose: 25 mg Montelukast Sodium (Singulair) 10 mg PO DAILY [facility] Last Admin: 07/02/17 11:17 Dose: 10 mg Multivitamins (Thera Tab) 1 tab PO 0800 [facility] Last Admin: 07/02/17 08:41 Dose: 1 tab Non-Formulary Medication (Mirabegron [Myrbetriq]) 25 mg PO DAILY [facility] Last Admin: 07/02/17 11:09 Dose: Not Given Olanzapine (Zyprexa Zydis) 5 mg PO AMHS [facility] PRN Reason: Protocol Last Admin: 07/02/17 11:07 Dose: 5 mg Polyethylene Glycol (Miralax) 17 gm PO DAILY [facility] Last Admin: 07/02/17 11:09 Dose: 17 gm Tamsulosin HCl (Flomax) 0.4 mg PO DAILY [facility] Last Admin: 07/02/17 11:07 Dose: 0.4 mg - Labs Labs: 07/02/17 07:00 07/02/17 07:00 PT 12.6 SECONDS (9.4-12.5) H 06/22/17 12:30 INR 1.09 (0.93-1.08) H 06/22/17 12:30 APTT 29.6 Seconds (25.1-36.5) 06/22/17 12:30 - Constitutional Appears: Chronically Ill - Head Exam Head Exam: NORMAL INSPECTION - Respiratory Exam Respiratory Exam: Decreased Breath Sounds - Cardiovascular Exam Cardiovascular Exam: +S1, +S2 - GI/Abdominal Exam GI & Abdominal Exam: Soft. absent: Tenderness Assessment and Plan - Assessment and Plan (Free Text) Plan: Assessment UTI with P. mirabilis Schizoaffective disorder history of urinary tract infection dyslipidemia Plan continue Ciprofloxacin to complete 9 more days
[2017-07-02] MEDS: Lidocaine 5% Patch TD SCH (23:00)
--- NOTE | 2017-07-03 02:36 | PN ---
DATE: 07/02/2017 PULMONARY PROGRESS NOTE REFERRING PHYSICIAN: Zulema Amaya MD. SUBJECTIVE: The patient is lying in the bed. Overnight events noted. Apparently, while she was on commode, fell, hit her head. CT of the head was done, which reported unremarkable. She feels okay. No nausea. No vomiting. Has constipation. No leg swelling. Still has a Bruno catheter. OBJECTIVE: GENERAL: In no acute distress. VITAL SIGNS: Temp is 98, heart rate is 56, respiratory rate is 18, blood pressure 99/48, pulse ox 96% on room air. HEENT: Moist mucous membrane. Crowded airway. Forehead has laceration. No active bleed. NECK: Supple. No JVD. LUNGS: Have a fair airflow with few rhonchi. HEART: S1, S2. ABDOMEN: Soft, nontender. No organomegaly. EXTREMITIES: There is no edema. NEUROLOGIC: Awake, alert. Follows simple command. MEDICATIONS: She is on hydralazine 10 mg four times daily p.r.n., Cipro 500 mg twice a day, Claritin 10 mg daily, Colace 200 mg daily, Cozaar 100 mg daily , Dulcolax suppository daily, Ecotrin 81 mg daily, lactulose 20 g at bedtime, ferrous sulfate 324 mg three times a day, Flomax 0.4 mg daily, folic acid 1 mg daily, metoprolol tartrate 25 mg twice a day, MiraLax 17 g daily, Pepcid 40 mg daily, Prozac 10 mg daily, Singulair 10 mg daily, IV fluid normal saline 50 mL per hour, multivitamins daily, Tylenol p.r.n. basis, Xanax 0.25 mg twice a day p.r.n. and Zyprexa 5 mg a.m. and at bedtime. LABORATORY DATA: Shows hemoglobin 13.8, hematocrit 43.7, WBC 9.7, platelet is 187. INR 1.09. PTT is 30. Sodium 139, potassium 4.8, chloride 99, bicarbonate 28, BUN 57, creatinine 2, glucose 94 and calcium is 9.1. AST is 33, ALT 53, alk phos is 81. Albumin 3.9. Urine culture has Proteus mirabilis. CAT scan of the chest is done, which shows displaced fracture of the right posterior 10th rib appears to demonstrate some callus formation suggesting not acute, but new compared to prior study; multiple bilateral lung nodule measuring 7 mm, unchanged-appearance from the prior study. Also had an x-ray of the shoulder done, which shows normal radiographic of the right shoulder. There is also left shoulder x-ray, which has no acute finding. Has a maxillofacial CT done, which shows asymmetrical angulation of the left zygomatic arch. Appearance is similar to the prior study while nasal bone irregularity and angulation to the right. Appearance is somewhat similar to the past. Also had a cervical spine CT done, which shows negative acute fracture, multilevel degenerative changes are noted. Had a CT of the head done, which shows no CT evidence of acute intracranial abnormality, chronic changes noted though. IMPRESSION AND PLAN: Chronic obstructive lung disease, may have sleep apnea syndrome, morbid obesity, hypertension, hyperlipidemia, bipolar disorder, chronic rash, bladder outlet obstruction requiring Bruno catheter, chronic constipation, urinary tract infection, status post fall. We will continue to watch closely. Spoke to nursing staff. Further fall precaution. She is refusing lactulose and Dulcolax. We will give Reglan for 24 to 48 hours. One of the reasons she has bladder outlet obstruction is chronic constipation. Once the constipation relieved, we can get rid of the Bruno catheter and hopefully, infection will also improve, fall precaution though. Thank you and we will follow with you. Elena Gant MD
--- NOTE | 2017-07-03 03:03 | PN ---
DATE: SUBJECTIVE: The patient is a 76-year-old female. Patient was seen and examined on the bedside. The patient is in the telemetry. Daughter and son are standing on the bedside. Also having laceration on the forehead and scratches on the nose. Complaining about pain in the left wrist and numbness in both hands. So, Neurology is on the case. No hematuria or hematochezia. No fever, no chills. PHYSICAL EXAMINATION: GENERAL: No fever, no chills. VITAL SIGNS: Temperature 98.2, pulse 56, respiratory rate 18, blood pressure 99/48, pulse oximetry 96%. HEENT: Head is normocephalic. Eyes, PERRLA. Extraocular muscles intact. Conjunctivae clear. Nose patent. Mucous membrane moist. Has scratches on skin and laceration on the forehead. NECK: Supple. No carotid bruit, JVD or thyromegaly. CHEST: Bilaterally symmetrical. HEART: S1, S2 positive. LUNGS: Clear to auscultation. ABDOMEN: Soft. Bowel sounds present. No organomegaly. EXTREMITIES: Lower extremity no edema. No cyanosis. Left wrist is swollen and range of motion is decreased. NEUROLOGIC: Patient is awake, alert. Moving all four extremities. Follows simple commands. MEDICATIONS: Xanax, Ecotrin, Dulcolax, calcium with vitamin D, ciprofloxacin, Colace, Pepcid, ferrous sulfate, Prozac, hydralazine, sodium chloride, lactulose, Claritin, Lopressor, Singulair, Zyprexa, Flomax. LABORATORY DATA: White blood cells 9.7, hemoglobin 13.8, hematocrit 43.7, platelets 187. Sodium 139, potassium 4.8, BUN 57, creatinine 2, glucose 107. ASSESSMENT AND PLAN: Ms. Karolina Puri is a 76-year-old lady with renal insufficiency, urinary tract infection with P mirabilis, schizophrenia, history of urinary tract infection and dyslipidemia, continue ciprofloxacin for completing 9 more days as per Infectious Disease. Because of fall and rule out syncopal attack, the patient was seen by Dr. Aníbal Gamez, Neurologist. The patient has a history of schizophrenia, bipolar. The patient is to have an electroencephalogram. The patient did have cardiac imaging to look for cardiac arrhythmias. The patient has mild bradycardia; his beta reggie was on hold. Appreciated Dr. Aníbal Gamez's input. Discussion done with Dr. Sanchez and the patient's daughter and son standing on the bedside. Ordered x-ray of the left wrist. Lidocaine patch given on the wrist and the neck. Had rapid response yesterday evening. The patient was transferred to the telemetry back due to bradycardia. The patient had a stress test done in 2014. two days ago by Dr. Sanchez to the patient. The patient does not want cardiac catheterization, but I have discussion done with the patient's daughter. She agrees and now I called Dr. Sanchez and talked to him. Dr. Sanchez will talk to the patient's daughter and will plan. The patient has Holter monitor because the patient was on beta-blockers, and at one point, heart had a 3.25-second pause on the strip. Holter monitor dated 06/25/2017, lower heart rate was 49, and the highest was 100, no pause noted. Dr. Sanchez gave some bolus of IV fluid; maybe patient is getting little bit dehydrated. Discontinue losartan and hold Lasix. Gastrointestinal and deep vein thrombosis prophylaxis. Repeat labs. We will follow up. Zulema Amaya MD MTDD
[2017-07-03 07:11] LABS: BASO # 0.03 K/mm3 (0.0-2.0); BASO % 0.4 % (0.0-3.0); EOS # 0.1 (0.0-0.7); EOS % 1.5 % (1.5-5.0); GRAN # 5.89 (1.4-6.5); GRAN % 73.4 % (50.0-68.0); HEMOGLOBIN 13.9 g/dL (12.0-16.0); LYMPH # 1.3 (1.2-3.4); LYMPH % 16.7 % (22.0-35.0); MEAN CELL VOLUME 91.1 fl (80.0-105.0); MEAN CORPUSCULAR HEMOGLOBIN 28.9 pg (25.0-35.0); MEAN CORPUSCULAR HGB CONC 31.7 g/dl (31.0-37.0); MEAN PLATELET VOLUME 12.1 fl (7.0-11.0); MONO # 0.6 (0.1-0.6); RBC 4.81 10^6/uL (3.5-6.1); RED CELL DISTRIBUTION WIDTH 14.4 % (11.5-14.5)
[2017-07-03 07:40] LABS: ALB/GLOB RATIO 1.4 (1.1-1.8); ALBUMIN 3.9 g/dL (3.0-4.8); CALCIUM 9.1 mg/dL (8.4-10.5)
--- NOTE | 2017-07-03 08:15 | RAD ---
PROCEDURE: Radiographs of the left elbow. HISTORY: swelling, pain COMPARISON: No prior. FINDINGS: BONES: No acute fracture. Status post ORIF mid humeral diaphyseal fracture, fully healed. JOINTS: Normal. No osteoarthritis. SOFT TISSUES: Normal. JOINT EFFUSION: None. OTHER FINDINGS: None IMPRESSION: No acute fracture.
--- NOTE | 2017-07-03 08:16 | RAD ---
PROCEDURE: Radiographs of the left humerus. HISTORY: swelling, pain COMPARISON: None. FINDINGS: BONES: No acute fracture. ORIF mid humeral diaphyseal fracture. SOFT TISSUES: Normal. OTHER FINDINGS: None. IMPRESSION: No acute fracture.
--- NOTE | 2017-07-03 08:18 | RAD ---
PROCEDURE: Radiographs of the Left Forearm HISTORY: swelling, pain COMPARISON: None available. TECHNIQUE: Frontal and lateral views obtained. FINDINGS: BONES: No fracture or destructive lesion. JOINT SPACES: Unremarkable. OTHER FINDINGS: None. IMPRESSION: Unremarkable radiographs of the left forearm.
--- NOTE | 2017-07-03 08:20 | RAD ---
PROCEDURE: Left Wrist Radiographs. HISTORY: Swelling, pain COMPARISON: None. FINDINGS: BONES: Examination technically limited. No acute fracture. JOINTS: Normal. No dislocation. SOFT TISSUES: Normal. OTHER FINDINGS: None. IMPRESSION: Normal left wrist radiographs.
[2017-07-03] MEDS ORDERED: Lidocaine 5% Patch TD SCH (10:00)
[2017-07-03] MEDS: OLANZapine 5 mg Disintegrating Tab PO SCH ×3 (10:44→22:40)
[2017-07-03] MEDS: Calcium-Vit D 250 mg-125 Units Tab UD PO SCH (10:44)
[2017-07-03] MEDS: Sodium Chloride 0.9% 1,000 ML IV SCH (10:50)
[2017-07-03] MEDS: MIRABEGRON 25 MG PO SCH (10:50)
[2017-07-03] MEDS: POLYETHYLENE GLYCOL 3350 17 GM/Dose PACKET PO SCH (10:52)
[2017-07-03] MEDS: Multivitamin Therapeutic Tab PO SCH (11:02)
--- NOTE | 2017-07-03 15:12 | PN ---
DATE: REFERRING PHYSICIAN: Dr. Zulema Amaya. REASON FOR CONSULTATION AND FOLLOWUP: Near syncope. The patient was in 5R, fell down, transferred to Telemetry. SUBJECTIVE: The patient denies any chest pain, shortness of breath or any palpitation. Now, the patient is in Telemetry. Heart rate 58. PHYSICAL EXAMINATION: GENERAL: Not in any apparent distress. Lying flat in the bed. VITAL SIGNS: Heart rate 58, blood pressure 105/55. HEENT: PERRLA. Extraocular muscles intact. NECK: Supple. No carotid bruit or thyromegaly. CHEST: Clear to auscultation. HEART: S1 and S2 regular. ABDOMEN: Soft. EXTREMITIES: Clubbing and cyanosis negative. DATA: Telemetry shows heart rate in 50s. No pause noted. Blood workup as follows: WBC 8, hemoglobin 13.9, hematocrit 43.8, platelet count 194. Chemistry shows sodium 130, potassium 4.4, chloride 99, carbon dioxide 28, anion gap of 15, BUN 53, creatinine is 1.4. IMPRESSION: Status post fall, status post acute kidney injury, creatinine 2, now improved with hydration. Orthostatic was requested, but apparently, it was not done. History of 3.2 second pause while the patient was on beta reggie, off beta reggie, Holter monitor was repeated. Heart rate lowest was 49 and fastest was 100. No further episode of bradycardia, significant bradyarrhythmia was noted. The patient had recently echocardiography done on 06/23/2017. That showed ejection fraction of 55-60%. Right ventricular systolic function was moderately reduced, mild mitral regurgitation, moderate tricuspid regurgitation, right ventricular systolic pressure of 59 consistent with [id number] pulmonary hypertension, mild pulmonary insufficiency. History of stress test in 2014 was equivocal. After that, the patient had multiple times being suggested cardiac catheterization, the patient does not want. This morning, also suggest cardiac catheterization. The patient states she does not want cardiac catheterization. Recently, the patient was in 5R and she was going to the bathroom and fell down, but moved to the Telemetry with diagnosis of possible syncope. Last night, Dr. Amaya called between 10-10.30 p.m. and said that she spoke to the daughter and son, they are willing for cardiac catheterization invasive workup. This morning, I spoke to the patient. She does not want cardiac catheterization. Then, I called the daughter, Yvette Puri, telephone #[phone]. I answered all questions, she was very much concerned if the patient needs pacemaker. I mentioned the patient does not need a pacemaker, Holter looks okay. She also wanted cardiac catheterization to be done. I mentioned the patient needs to sign the consent and has to be willing. She will try to talk with her mom tomorrow and you wanted to give a day or two, so we will schedule the patient for cardiac catheterization tentatively on at 09.30 if the patient agrees. In the interim, we will continue gentle hydration. Repeat the blood workup tomorrow. The patient had 2 days ago, acute renal failure, kidney function got worse and creatinine clearance creatinine clearance 24 mL an hour. So, we will continue gentle hydration to improve kidney function. Today, kidney function improved a little bit, but still the creatinine clearance is 30 mL an hour, creatinine 1.4. If the kidney function improve by and the patient is willing, we will schedule tentatively at 09.30, keep n.p.o. after Sunday for cardiac catheterization and tomorrow, the patient's daughter is coming and will talk to the patient. We will update Dr. Amaya. We will discuss with you. We will start aspirin, Plavix anticipating that the patient will go for cardiac catheterization,avoid nephrotoxic medication and hydrate gentle. We will continue gentle hydration 50 mL an hour normal saline and repeat the blood workup in the morning. If the renal function improve, we will do the cardiac catheterization on . We will check the blood workup tomorrow and also if the patient agrees, then we will do the cath on . We will start gentle hydration. We will follow with you. Thank you, Dr. Amaya, for providing us the opportunity in taking care of the patient, Karolina Puri. Elena Sanchez MD
[2017-07-03] MEDS: Lidocaine 5% Patch TD SCH (22:32)
--- NOTE | 2017-07-04 00:35 | PN ---
DATE: 07/03/2017 SUBJECTIVE: Patient is in bed, in no acute distress, nontoxic. PHYSICAL EXAMINATION: VITAL SIGNS: Temperature is 98, blood pressure is 111/50, respiratory rate of 18, heart rate of 62. HEENT: Unremarkable. NECK: Supple. LUNGS: Have decreased breath sounds. HEART: Normal S1, S2. ABDOMEN: Soft, nontender, no organomegaly. No rebound, no guarding, no masses. LABORATORY DATA: Reveals the patient's white count is 8000, hemoglobin of 13, and platelets of 194. Chemistries reveal a BUN of 53, creatinine of 1.4. Urinalysis is noted. Microbiology reveals Proteus in the urine. Review of orders reveals the patient to be on p.o. Cipro. ASSESSMENT AND PLAN: This is a 76-year-old female who is seen early this morning in room 276, bed 2, who overall is weak, however, awake and alert, communicating; with Proteus mirabilis urinary tract infection, schizoaffective disorder, history of urinary tract infection, history of dyslipidemia. On Cipro, to complete [address] Amaya's note is reviewed. We will follow with you. Gene Magana MD
--- NOTE | 2017-07-04 03:26 | PN ---
DATE: SUBJECTIVE: Patient was seen and examined on the bedside, looking comfortable. Son and daughter, both are standing on the bedside. No chest pain, but the patient is coughing, having shortness of breath bringing some clear phlegm. No fever, no chills. No headache. No dizziness. PHYSICAL EXAMINATION: VITAL SIGNS: Temperature 98.6, heart rate is 58, blood pressure 105/55. HEENT: Head is normocephalic, atraumatic. Eyes, PERRLA. Extraocular muscles intact. Conjunctivae clear. Nose patent. Mucous membrane moist. NECK: Supple. No carotid bruit, JVD or thyromegaly. CHEST: Bilaterally symmetrical. LUNGS: Wheezing bilaterally. HEART: S1 and S2 positive. Regular rate and rhythm. ABDOMEN: Soft. Bowel sounds present. No organomegaly. EXTREMITIES: No edema. No cyanosis. NEUROLOGIC: Patient is awake and alert. Moving all four extremities. No focal deficits. According to Dr. Sanchez, telemetry shows heart rate 50, no pause noted. LABORATORY DATA: White blood cells 8, hemoglobin 13.9, hematocrit 43.8, platelets 194. Sodium 130, potassium 4.4, BUN 53, creatinine 1.4. ASSESSMENT AND PLAN: Ms. Karolina Puri is a 76-year-old lady, status post fall, rule out syncopal attack, has acute kidney injury. Creatinine now is getting improved with hydration. Orthostatics was requested, but apparently, it was History of 3.2-second pause while the patient was on beta-blockers and now off the beta blockers. Heart rate ranging from 49 to 100. No further episode of significant bradycardia or bradyarrhythmia noted. The patient had echocardiography done. Appreciated Dr. Sanchez's input. Length of time discussion with Dr. Sanchez yesterday about this patient. Dr. Sanchez talked to the patient's daughter. Tomorrow, they have a meeting. The patient had numbness of both hands. Neurology consult was called. Dr. Tong saw the patient. He agreed to do MRA of the head and MRA of the cervical spine to rule out radiculopathy. The patient has history of schizophrenia, bipolar. Gastrointestinal and deep venous thrombosis prophylaxis. Repeat labs. We will follow. Zulema Amaya MD MTDWei
--- NOTE | 2017-07-04 04:25 | PN ---
DATE: REFERRING PHYSICIAN: Dr. Zulema Amaya SUBJECTIVE: The patient is lying in the bed at 45 degrees. Night was unremarkable. Feels better. No more headache. No neck pain. No nausea, no vomiting. Does not have any bowel movement. Apparently refuses Dulcolax and lactulose. Still has a Bruno catheter. No leg pain or leg swelling. OBJECTIVE: In no acute distress. Temperature is 98, heart rate 81, respiratory 60, blood pressure 111/59, pulse ox 96% on nasal cannula. HEENT: Moist mucous membrane. Crowded airway. Neck: Supple. No JVD. Lungs: Have fair airflow with rhonchi. Heart: S1, S2. Abdomen: Soft, nontender, no organomegaly. Extremities: There is no edema. Neurologic: Awake and follows simple command. MEDICATIONS: She is on hydralazine 10 mg q.i.d. p.r.n., aspirin 81 mg daily, Cipro 500 mg twice a day, Claritin 10 mg daily, Colace 200 mg daily, Dulcolax 10 mg rectally daily, DuoNeb every 6h p.r.n., lactulose 20 g daily, ferrous sulfate every 24 mg three times a day, Flomax 0.4 mg daily, folic acid 1 mg daily, Lidoderm patch affected area, MiraLax 17 g daily, calcium plus vitamin 1 tab daily, Pepcid 40 mg daily, Plavix 75 mg daily, Prozac 10 mg daily, Reglan 10 mg q.i.d., Robitussin 1 mg three times a day, Singulair 10 mg daily, IV fluid normal saline 50 ml per hour, multivitamins daily, Zyprexa 5 mg a.m. and bedtime. LABORATORY DATA: Shows hemoglobin 13.9, hematocrit 43.8, WBC 8.0, platelet count is 194. Sodium 138, potassium 4.4, chloride 99, bicarbonate 28, BUN 53, creatinine 1.4, glucose is 97, calcium is 9.1, phosphorus 4.1, magnesium 2.6, AST 66, ALT 53, alk phos is 87. Albumin is 3.9. Urine culture has Proteus mirabilis. IMPRESSION: Chronic obstructive lung disease, sleep apnea syndrome, morbid obesity, hypertension, hyperlipidemia, bipolar disorder, chronic rash, bladder outlet obstruction requiring Bruno catheter, chronic constipation, UTI, status post fall, pulmonary point of doing okay. Spoke to nursing staff. Keep head 45 degrees. Sleep apnea precaution. Bronchodilator. The patient has to take laxative, has a constipation that is causing her bladder outlet obstruction. We will discontinue Reglan as soon as she started bowel movement. Fall precaution. Will benefit from therapy. Follow up labs in the morning. Thank you and we will follow with you Elena Gant MD
[2017-07-04] MEDS: Sodium Chloride 0.9% 1,000 ML IV SCH (05:04)
--- NOTE | 2017-07-04 07:21 | CP.PCM.PN ---
Subjective - Date & Time of Evaluation Date of Evaluation: 07/04/17 Time of Evaluation: 06:55 - Subjective Subjective: Feels tired, wanted to sleep, denies chest pain or shortness of breath Reason for consult and follow up: Hypertension, hyperlipidemia,bipolar disorder, schizophrenia, non-obstructive coronary artery disease, last cardiac cath in 2004. Repeat stress test in 2014- suspicious ischemia however refused cardiac catherization at that time. Previous ECHO showed mild mitral and tricuspid regurgitation . Preserved LV function. 3.37 seconds pause on telemetry. Held Betablocker and holter monitor showed NSR not requiring PPM. patient was in 5R , however she fell and rule out syncope. She was transferred to telemetry. Objective - Vital Signs/Intake and Output Vital Signs (last 24 hours): Temp Pulse Resp BP Pulse Ox 98.5 F 67 20 114/63 97 07/04/17 06:00 07/04/17 06:00 07/04/17 06:00 07/04/17 06:00 07/04/17 06:00 Intake and Output: 07/04/17 07/04/17 06:59 18:59 Intake Total 1290 Output Total 700 Balance 590 - Medications Medications: Current Medications Acetaminophen (Tylenol 325mg Tab) 650 mg PO Q6H PRN PRN Reason: Pain, moderate (4-7) Last Admin: 07/03/17 00:51 Dose: 650 mg Albuterol/Ipratropium (Duoneb 3 Mg/0.5 Mg (3 Ml) Ud) 3 ml IH [id number] PRN PRN Reason: Shortness of Breath Aspirin (Aspirin Chewable) 81 mg PO DAILY [facility] Last Admin: 07/03/17 10:46 Dose: 81 mg Bisacodyl (Dulcolax) 10 mg RC DAILY [facility] Last Admin: 07/03/17 10:45 Dose: 10 mg Calcium/Vitamin D (Oscal-D 250 Mg-125 Units Tab) 1 tab PO DAILY [facility] Last Admin: 07/03/17 10:44 Dose: 1 tab Ciprofloxacin (Cipro) 500 mg PO Q12 [facility] PRN Reason: Protocol Stop: 07/10/17 16:16 Last Admin: 07/03/17 22:32 Dose: 500 mg Clopidogrel Bisulfate (Plavix) 75 mg PO DAILY [facility] Last Admin: 07/03/17 11:00 Dose: Not Given Docusate Sodium (Colace) 200 mg PO DAILY [facility] Last Admin: 07/03/17 10:44 Dose: 200 mg Famotidine (Pepcid) 40 mg PO HS [facility] Last Admin: 07/03/17 22:32 Dose: 40 mg Ferrous Sulfate (Feosol) 324 mg PO TID [facility] Last Admin: 07/03/17 18:34 Dose: 324 mg Fluoxetine HCl (Prozac) 10 mg PO DAILY [facility] Last Admin: 07/03/17 10:45 Dose: 10 mg Folic Acid (Folic Acid) 1 mg PO DAILY [facility] Last Admin: 07/03/17 10:45 Dose: 1 mg Guaifenesin (Robitussin) 100 mg PO TID [facility] Hydralazine HCl (Apresoline) 10 mg PO QID PRN PRN Reason: for sbp>170 Lactulose (Enulose) 20 gm PO DAILY [facility] Last Admin: 07/03/17 12:37 Dose: 20 gm Lidocaine (Lidoderm) 2 ea TD 2200 [facility] Last Admin: 07/03/17 22:32 Dose: 2 ea Loratadine (Claritin) 10 mg PO DAILY [facility] Last Admin: 07/03/17 10:43 Dose: 10 mg Metoclopramide HCl (Reglan) 10 mg PO 0600,1130,1630,2200 [facility] Last Admin: 07/04/17 05:03 Dose: 10 mg Montelukast Sodium (Singulair) 10 mg PO DAILY [facility] Last Admin: 07/03/17 11:02 Dose: 10 mg Multivitamins (Thera Tab) 1 tab PO 0800 [facility] Last Admin: 07/03/17 11:02 Dose: 1 tab Non-Formulary Medication (Mirabegron [Myrbetriq]) 25 mg PO DAILY [facility] Last Admin: 07/03/17 10:50 Dose: Not Given Olanzapine (Zyprexa Zydis) 5 mg PO AMHS [facility] PRN Reason: Protocol Last Admin: 07/03/17 22:40 Dose: Not Given Polyethylene Glycol (Miralax) 17 gm PO DAILY [facility] Last Admin: 07/03/17 10:52 Dose: 17 gm Tamsulosin HCl (Flomax) 0.4 mg PO DAILY [facility] Last Admin: 07/03/17 10:45 Dose: 0.4 mg - Labs Labs: 07/03/17 07:00 07/03/17 07:00 PT 12.6 SECONDS (9.4-12.5) H 06/22/17 12:30 INR 1.09 (0.93-1.08) H 06/22/17 12:30 APTT 29.6 Seconds (25.1-36.5) 06/22/17 12:30 - Constitutional Appears: No Acute Distress - Head Exam Head Exam: NORMAL INSPECTION - Eye Exam Pupil Exam: NORMAL ACCOMODATION - ENT Exam ENT Exam: Mucous Membranes Moist - Neck Exam Neck Exam: Normal Inspection - Respiratory Exam Respiratory Exam: Clear to Ausculation Bilateral, NORMAL BREATHING PATTERN - Cardiovascular Exam Cardiovascular Exam: REGULAR RHYTHM, +S1, +S2 Additional comments: Normal sinus rythm- 60's - GI/Abdominal Exam GI & Abdominal Exam: Soft, Normal Bowel Sounds - Exam Additional comments: talbot catheter - Extremities Exam Extremities Exam: Full ROM, Normal Capillary Refill Assessment and Plan - Assessment and Plan (Free Text) Assessment: IMPRESSION: Hypertension, hyperlipidemia,bipolar disorder,schizophrenia, non- obstructive coronary artery disease, last cardiac cath in 2004. Repeat stress test in 2014- suspicious ischemia however refused cardiac catherization at that time. Previous ECHO showed mild mitral and tricuspid regurgitation . Preserved LV function. 3.37 seconds pause on telemetry. Held Betablocker and holter monitor showed NSR not requiring PPM. Patient was in 5R, however she fell and ruled out syncope. She was transferred to telemetry for monitoring. Plan: Dr. Sanchez recommended cardiac catheterization however patient was refusing earlier on admission Dr. Sanchez spoke to daughter again and discussed possible cardiac catheterization yesterday Daughter will speak with mother today and make a decision Tentatively scheduled for cardiac cath on pending decision Creatinine level down from 2.0 to 1.4 Continue IV hydration Stable blood pressure and heart rate Continue current medications Continue current treatment Will follow up Plan and treatment discussed with Dr. Sanchez
[2017-07-04 07:37] LABS: BASO # 0.02 K/mm3 (0.0-2.0); BASO % 0.2 % (0.0-3.0); EOS # 0.1 (0.0-0.7); EOS % 1.1 % (1.5-5.0); GRAN # 6.57 (1.4-6.5); GRAN % 74.3 % (50.0-68.0); HEMOGLOBIN 12.6 g/dL (12.0-16.0); LYMPH # 1.4 (1.2-3.4); LYMPH % 15.9 % (22.0-35.0); MEAN CELL VOLUME 92.3 fl (80.0-105.0); MEAN CORPUSCULAR HEMOGLOBIN 28.7 pg (25.0-35.0); MEAN CORPUSCULAR HGB CONC 31.1 g/dl (31.0-37.0); MEAN PLATELET VOLUME 12.1 fl (7.0-11.0); MONO # 0.8 (0.1-0.6); MONO % 8.5 % (1.0-6.0); RBC 4.39 10^6/uL (3.5-6.1); RED CELL DISTRIBUTION WIDTH 14.1 % (11.5-14.5); WHITE BLOOD COUNT 8.9 10^3/ul (4.5-11.0)
[2017-07-04 08:08] LABS: ALB/GLOB RATIO 1.3 (1.1-1.8); ALBUMIN 3.3 g/dL (3.0-4.8); ALT/SGPT 40 U/L (7-56); AST/SGOT 63 U/L (14-36); BLOOD UREA NITROGEN 38 mg/dL (7-21); CALCIUM 8.4 mg/dL (8.4-10.5); GFR AFRICAN-AMERICAN > 60; GFR NON-AFRICAN AMERICAN 54
--- NOTE | 2017-07-04 08:24 | EEG ---
DATE: 07/02/2017 INTRODUCTION: This is a digitally recorded EEG monitoring using standard EEG montages. BACKGROUND RHYTHM: The EEG shows a background activity of 8-9 Hz alpha activity in parietooccipital region. The EEG activity is bilaterally symmetrical and synchronous. There is attenuation of the background activity on eye opening. Moderate amount of myogenic artifact noticed in this EEG recording. ABNORMAL POTENTIALS: No spike, sharp waves, or focal slowing was seen. PHOTIC STIMULATION AND HYPERVENTILATION: Photic stimulation did not reveal any abnormality. Hyperventilation was not performed. IMPRESSION: Normal electrocardiogram. No epileptiform activity seen in this electroencephalogram recording. Aníbal Gamez MD
--- NOTE | 2017-07-04 09:35 | RAD ---
HISTORY: congestion COMPARISON: 06/22/2017 FINDINGS: LUNGS: No active pulmonary disease. PLEURA: No significant pleural effusion identified, no pneumothorax apparent. CARDIOVASCULAR: Normal. OSSEOUS STRUCTURES: No significant abnormalities. VISUALIZED UPPER ABDOMEN: Normal. OTHER FINDINGS: None. IMPRESSION: No active disease.
[2017-07-04] MEDS: Calcium-Vit D 250 mg-125 Units Tab UD PO SCH (10:47)
[2017-07-04] MEDS: MIRABEGRON 25 MG PO SCH (10:48)
[2017-07-04] MEDS: POLYETHYLENE GLYCOL 3350 17 GM/Dose PACKET PO SCH (10:48)
[2017-07-04] MEDS: guaiFENesin 100 mg/5 ml Syrup UD PO SCH ×3 (10:48→19:08)
[2017-07-04] MEDS: OLANZapine 5 mg Disintegrating Tab PO SCH ×3 (10:49→22:03)
[2017-07-04] MEDS: Multivitamin Therapeutic Tab PO SCH (14:27)
--- NOTE | 2017-07-04 14:34 | MRI ---
PROCEDURE: MRI BRAIN WITHOUT CONTRAST HISTORY: hand numbness COMPARISON: 07/12/2014 MRI TECHNIQUE: Multiplanar, multisequence MR images of the brain were obtained without intravenous contrast enhancement. FINDINGS: HEMORRHAGE: None DWI: No evidence of an acute or early subacute infarction. BRAIN PARENCHYMA: No mass effect or edema. Chronic microvascular changes are seen in the periventricular white matter. VENTRICLES: Unremarkable. No hydrocephalus. CRANIUM: Unremarkable. ORBITS: Grossly unremarkable. PARANASAL SINUSES/MASTOIDS: Clear VASCULAR SYSTEM: Skull base flow voids intact. OTHER FINDINGS: None. IMPRESSION: No acute intracranial findings
--- NOTE | 2017-07-04 14:39 | MRI ---
PROCEDURE: MR CERVICAL SPINE WITHOUT CONTRAST HISTORY: hand numbness COMPARISON: None available. TECHNIQUE: Multiecho multiplanar sequences were performed through the cervical spine without the use of intravenous contrast. FINDINGS: Normal lordotic curvature. Craniocervical junction unremarkable. Vertebral body heights preserved. No marrow signal abnormality. Normal cervical cord. No paraspinal abnormality. C2-C3: No disc herniation, spinal canal stenosis or neural foraminal narrowing. C3-C4: Disc bulge and left-sided foraminal narrowing C4-C5: There is a disc bulge in osteophytic ridge producing severe stenosis at this level. There is flattening of the cord and a mild amount of cord edema or malacia. C5-C6: No disc herniation, spinal canal stenosis or neural foraminal narrowing. C6-C7: No disc herniation, spinal canal stenosis or neural foraminal narrowing. C7-T1: No disc herniation, spinal canal stenosis or neural foraminal narrowing. OTHER FINDINGS: None. IMPRESSION: C4-5.There is a disc bulge and an osteophytic ridge producing severe stenosis at this level. There is flattening of the cord and a mild amount of cord edema or malacia.
--- NOTE | 2017-07-04 15:37 | PN ---
DATE OF DICTATION: 07/04/2017 ADDENDUM TYPE OF DICTATION: Addendum to initial progress note dictated by our nurse practitioner. REASON FOR ADDENDUM: The patient is still refusing cardiac catheterization. Discussed yesterday at length with the daughter, Maddy. She said she was going to come with daughter, awaiting for her to come back, but the patient is still refusing. We will await for final decision after the patient's daughter talked to her. This morning, the patient is still refusing. The patient though is on schedule for cardiac catheterization tomorrow, n.p.o. after midnight. We will await for the family to decide. Elena Sanchez MD MTDD
[2017-07-04] MEDS: Albuterol-Ipratrop 3 mg / 0.5 (3 ml) UD IH PRN (15:53)
--- NOTE | 2017-07-04 16:40 | CP.PCM.PN ---
Subjective - Date & Time of Evaluation Date of Evaluation: 07/04/17 Time of Evaluation: 10:45 - Subjective Subjective: No fevers, not in distress. Objective - Vital Signs/Intake and Output Vital Signs (last 24 hours): Temp Pulse Resp BP Pulse Ox 98.2 F 67 18 126/66 97 07/04/17 12:00 07/04/17 12:00 07/04/17 12:00 07/04/17 12:00 07/04/17 06:00 Intake and Output: 07/04/17 07/04/17 06:59 18:59 Intake Total 1290 Output Total 700 Balance 590 - Medications Medications: Current Medications Acetaminophen (Tylenol 325mg Tab) 650 mg PO Q6H PRN PRN Reason: Pain, moderate (4-7) Last Admin: 07/04/17 15:42 Dose: 650 mg Albuterol/Ipratropium (Duoneb 3 Mg/0.5 Mg (3 Ml) Ud) 3 ml IH [id number] PRN PRN Reason: Shortness of Breath Last Admin: 07/04/17 15:53 Dose: 3 ml Aspirin (Aspirin Chewable) 81 mg PO DAILY [facility] Last Admin: 07/04/17 10:48 Dose: 81 mg Bisacodyl (Dulcolax) 10 mg RC DAILY [facility] Last Admin: 07/04/17 11:00 Dose: Not Given Calcium/Vitamin D (Oscal-D 250 Mg-125 Units Tab) 1 tab PO DAILY [facility] Last Admin: 07/04/17 10:47 Dose: 1 tab Ciprofloxacin (Cipro) 500 mg PO Q12 [facility] PRN Reason: Protocol Stop: 07/10/17 16:16 Last Admin: 07/04/17 10:47 Dose: 500 mg Clopidogrel Bisulfate (Plavix) 75 mg PO DAILY [facility] Last Admin: 07/04/17 10:47 Dose: 75 mg Docusate Sodium (Colace) 200 mg PO DAILY [facility] Last Admin: 07/04/17 10:47 Dose: 200 mg Famotidine (Pepcid) 40 mg PO HS [facility] Last Admin: 07/03/17 22:32 Dose: 40 mg Ferrous Sulfate (Feosol) 324 mg PO TID [facility] Last Admin: 07/04/17 14:27 Dose: 324 mg Fluoxetine HCl (Prozac) 10 mg PO DAILY [facility] Last Admin: 07/04/17 15:42 Dose: 10 mg Folic Acid (Folic Acid) 1 mg PO DAILY [facility] Last Admin: 07/04/17 10:48 Dose: 1 mg Guaifenesin (Robitussin) 100 mg PO TID [facility] Last Admin: 07/04/17 14:27 Dose: 100 mg Hydralazine HCl (Apresoline) 10 mg PO QID PRN PRN Reason: for sbp>170 Lactulose (Enulose) 20 gm PO DAILY [facility] Last Admin: 07/04/17 10:48 Dose: 20 gm Lidocaine (Lidoderm) 2 ea TD 2200 [facility] Last Admin: 07/03/17 22:32 Dose: 2 ea Loratadine (Claritin) 10 mg PO DAILY [facility] Last Admin: 07/04/17 10:47 Dose: 10 mg Metoclopramide HCl (Reglan) 10 mg PO 0600,1130,1630,2200 [facility] Last Admin: 07/04/17 10:48 Dose: 10 mg Montelukast Sodium (Singulair) 10 mg PO DAILY [facility] Last Admin: 07/04/17 10:47 Dose: 10 mg Multivitamins (Thera Tab) 1 tab PO 0800 [facility] Last Admin: 07/04/17 14:27 Dose: 1 tab Non-Formulary Medication (Mirabegron [Myrbetriq]) 25 mg PO DAILY [facility] Last Admin: 07/04/17 10:48 Dose: Not Given Olanzapine (Zyprexa Zydis) 5 mg PO AMHS [facility] PRN Reason: Protocol Last Admin: 07/04/17 15:42 Dose: 5 mg Polyethylene Glycol (Miralax) 17 gm PO DAILY [facility] Last Admin: 07/04/17 10:48 Dose: 17 gm Tamsulosin HCl (Flomax) 0.4 mg PO DAILY [facility] Last Admin: 07/04/17 10:48 Dose: 0.4 mg - Labs Labs: 07/04/17 07:00 07/04/17 07:00 PT 12.6 SECONDS (9.4-12.5) H 06/22/17 12:30 INR 1.09 (0.93-1.08) H 06/22/17 12:30 APTT 29.6 Seconds (25.1-36.5) 06/22/17 12:30 - Constitutional Appears: Chronically Ill - Head Exam Head Exam: NORMAL INSPECTION - Respiratory Exam Respiratory Exam: Decreased Breath Sounds - Cardiovascular Exam Cardiovascular Exam: +S1, +S2 - GI/Abdominal Exam GI & Abdominal Exam: Soft. absent: Tenderness Assessment and Plan - Assessment and Plan (Free Text) Plan: Assessment UTI with P. mirabilis Schizoaffective disorder history of urinary tract infection dyslipidemia Plan continue Ciprofloxacin to complete 7 more days
--- NOTE | 2017-07-04 21:03 | CP.PCM.PN ---
Subjective - Date & Time of Evaluation Date of Evaluation: 07/04/17 Time of Evaluation: 21:00 - Subjective Subjective: will do full consult in AM Spoke to daughter Alyx The MRI clearly indicates spinal cord injury with sever compression at C4/5 Will require ACDF at C4/5 I understand family refused cardiac cath Explained to daughter that she will need surgery and that She will need cardiac and medical clearance prior to spine surgery Daughter will discuss her feelings with PMD and concrete buildings assembler Will only schedule surgery if pt is medically cleared Objective - Vital Signs/Intake and Output Vital Signs (last 24 hours): Temp Pulse Resp BP Pulse Ox 97.9 F 88 18 118/58 L 97 07/04/17 17:54 07/04/17 18:00 07/04/17 17:54 07/04/17 17:54 07/04/17 06:00 Intake and Output: 07/04/17 07/05/17 18:59 06:59 Intake Total 420 Output Total 500 Balance -80 - Medications Medications: Current Medications Acetaminophen (Tylenol 325mg Tab) 650 mg PO Q6H PRN PRN Reason: Pain, moderate (4-7) Last Admin: 07/04/17 15:42 Dose: 650 mg Albuterol/Ipratropium (Duoneb 3 Mg/0.5 Mg (3 Ml) Ud) 3 ml IH [id number] PRN PRN Reason: Shortness of Breath Last Admin: 07/04/17 15:53 Dose: 3 ml Aspirin (Aspirin Chewable) 81 mg PO DAILY [facility] Last Admin: 07/04/17 10:48 Dose: 81 mg Bisacodyl (Dulcolax) 10 mg RC DAILY [facility] Last Admin: 07/04/17 11:00 Dose: Not Given Calcium/Vitamin D (Oscal-D 250 Mg-125 Units Tab) 1 tab PO DAILY [facility] Last Admin: 07/04/17 10:47 Dose: 1 tab Ciprofloxacin (Cipro) 500 mg PO Q12 [facility] PRN Reason: Protocol Stop: 07/10/17 16:16 Last Admin: 07/04/17 10:47 Dose: 500 mg Docusate Sodium (Colace) 200 mg PO DAILY [facility] Last Admin: 07/04/17 10:47 Dose: 200 mg Famotidine (Pepcid) 40 mg PO [facility] Last Admin: 07/03/17 22:32 Dose: 40 mg Ferrous Sulfate (Feosol) 324 mg PO TID [facility] Last Admin: 07/04/17 18:58 Dose: 324 mg Fluoxetine HCl (Prozac) 10 mg PO DAILY [facility] Last Admin: 07/04/17 15:42 Dose: 10 mg Folic Acid (Folic Acid) 1 mg PO DAILY [facility] Last Admin: 07/04/17 10:48 Dose: 1 mg Guaifenesin (Robitussin) 100 mg PO TID [facility] Last Admin: 07/04/17 19:08 Dose: Not Given Hydralazine HCl (Apresoline) 10 mg PO QID PRN PRN Reason: for sbp>170 Lactulose (Enulose) 20 gm PO DAILY [facility] Last Admin: 07/04/17 10:48 Dose: 20 gm Lidocaine (Lidoderm) 2 ea TD 2200 [facility] Last Admin: 07/03/17 22:32 Dose: 2 ea Loratadine (Claritin) 10 mg PO DAILY [facility] Last Admin: 07/04/17 10:47 Dose: 10 mg Metoclopramide HCl (Reglan) 10 mg PO 0600,1130,1630,2200 [facility] Last Admin: 07/04/17 18:58 Dose: 10 mg Montelukast Sodium (Singulair) 10 mg PO DAILY [facility] Last Admin: 07/04/17 10:47 Dose: 10 mg Multivitamins (Thera Tab) 1 tab PO 0800 [facility] Last Admin: 07/04/17 14:27 Dose: 1 tab Non-Formulary Medication (Mirabegron [Myrbetriq]) 25 mg PO DAILY [facility] Last Admin: 07/04/17 10:48 Dose: Not Given Olanzapine (Zyprexa Zydis) 5 mg PO AMHS [facility] PRN Reason: Protocol Last Admin: 07/04/17 15:42 Dose: 5 mg Polyethylene Glycol (Miralax) 17 gm PO DAILY [facility] Last Admin: 07/04/17 10:48 Dose: 17 gm Tamsulosin HCl (Flomax) 0.4 mg PO DAILY [facility] Last Admin: 07/04/17 10:48 Dose: 0.4 mg - Labs Labs: 07/04/17 07:00 07/04/17 07:00 PT 12.6 SECONDS (9.4-12.5) H 06/22/17 12:30 INR 1.09 (0.93-1.08) H 06/22/17 12:30 APTT 29.6 Seconds (25.1-36.5) 06/22/17 12:30
[2017-07-04] MEDS: Lidocaine 5% Patch TD SCH (21:30)
--- NOTE | 2017-07-04 21:58 | PN ---
DATE: 07/04/2017 PULMONARY PROGRESS NOTE REFERRING PHYSICIAN: Dr. Amaya. SUBJECTIVE: She is lying on the stretcher, getting MRI. Night was unremarkable. Do not have bowel movement last 24 hours. Still has a Bruno catheter. Refused to take a whole dose of MiraLax, did not take Dulcolax. No chest pain. No nausea. No vomiting. Still required Bruno catheter with suction. No leg swelling. OBJECTIVE: GENERAL: In no acute distress. VITAL SIGNS: Temperature is 98, heart rate is 67, respiratory rate is 18, blood pressure 126/66, pulse ox 97% on nasal cannula. HEENT: Moist mucous membrane. Crowded airway. NECK: Supple. No JVD. LUNGS: Has fair airflow with few rhonchi. HEART: S1 and S2. ABDOMEN: Soft, nontender. EXTREMITIES: There is no edema. NEUROLOGIC: Awake and alert, follows simple command. MEDICATIONS: She is on hydralazine 10 mg four times a day p.r.n., aspirin 81 mg daily, Cipro 500 mg twice a day, Claritin 10 mg daily, Colace 200 mg daily, Dulcolax 10 mg daily, DuoNeb every 6 hours p.r.n., lactulose 20 g p.o. daily, ferrous sulfate 324 mg three times a day, Flomax 0.4 mg daily, folic acid 1 mg daily, lidocaine p.r.n., MiraLax 17 g p.o. daily, calcium plus vitamin D, Pepcid 40 mg daily, Plavix 75 mg daily, Prozac 10 mg daily, Reglan 10 mg four times a day, Robitussin three times a day, Singulair 10 mg daily, multivitamins daily, Tylenol p.r.n., Zyprexa 5 mg twice a day. LABORATORY DATA: Shows hemoglobin 12.6, hematocrit 40.5, WBC 8.9, platelet 174. Sodium 139, potassium 4.4, chloride 103, bicarbonate 27, BUN 38, creatinine 1.0, glucose is 90. Calcium 8.4, phosphorus 4.2, magnesium 2.4, AST 63, ALT 40, alk phos is 73, albumin is 3.3. Urine culture has Proteus mirabilis. MRI of the brain and cervical spine done, report is pending. IMPRESSION AND PLAN: Chronic obstructive lung disease, sleep apnea syndrome, morbid obesity, hypertension, hyperlipidemia, bipolar disorder, chronic rash, bladder outlet obstruction requiring Bruno catheter, chronic constipation, urinary tract infection. Spoke to nursing staff, encouraged as to continue her MiraLax, Colace, lactulose, Dulcolax. Once she has a good bowel movement, may be Bruno catheter can be taken out and give a trial of self voiding urine. Continue bronchodilator, sleep apnea precaution. Careful with sedation. Fall precaution. Thank you and we will follow with you. Elena Gant MD
[2017-07-04] MEDS: Dexamethasone 4 MG in Sodium Chloride 0.9% 50 ML IV SCH (22:03)
[2017-07-05] MEDS: Dexamethasone 4 MG in Sodium Chloride 0.9% 50 ML IV SCH ×4 (04:18→22:00)
--- NOTE | 2017-07-05 04:38 | PN ---
DATE: SUBJECTIVE: The patient was seen and examined at the bedside, feeling little bit better, but still having numbness of both hands. No headaches or dizziness. No chest pain. No palpitations. No hematuria or hematochezia. No fever. No chills. PHYSICAL EXAMINATION VITAL SIGNS: Temperature 97.9, pulse 88, blood pressure 118/58, respiratory rate 18. HEENT: Head normocephalic, atraumatic. Eyes, PERRLA. Extraocular muscles intact. Conjunctivae clear. Nose patent. NECK: Supple. No carotid bruit. No JVD or thyromegaly. CHEST: Bilaterally symmetrical. HEART: S1 and S2 positive. LUNGS: Clear to auscultation. ABDOMEN: Soft. Bowel sounds positive. No organomegaly. EXTREMITIES: No edema. No cyanosis. NEUROLOGICAL: The patient is awake and alert. Moving all 4 extremities. No focal deficits. MEDICATIONS: Hydralazine, aspirin, Cipro, Claritin, Colace, dexamethasone, bisacodyl, DuoNeb, lactulose, ferrous sulfate, Flomax, folic acid, Lidoderm, MiraLax, Os-Karl, Pepcid, Prozac, Reglan, Robitussin, Singulair, multivitamins, Tylenol and Zyprexa. LABORATORY DATA: White blood cells 8.9, hemoglobin 12.6, hematocrit 40.5, platelets 174. Sodium 139, potassium 4.4, BUN 38, creatinine 1, phosphorus 2.4, AST 63. ASSESSMENT AND PLAN: Ms. Karolina Puri is a 76-year-old lady with history of leukocytosis, improved, increased BUN, hypermagnesemia, abnormal liver function test, trending down, hematuria, urinary tract infection, getting antibiotics for urinary tract infection. MRI of the neck done shows spinal cord injury with severe compression at C4-C5. Will require anterior cervical discectomy and fusion at C4-C5. Dr. Davies explained to the daughter that she will need surgery, that she will need cardiac and medical clearance prior to spinal surgery. Daughter will discuss that with the engineering lab technician. According to Dr. Davies, neurosurgeon, he will do surgery only if engineering lab technician has cleared the patient. Patient has schizophrenia, bipolar, urinary tract infection with Proteus mirabilis, history of urinary tract infection, dyslipidemia. Continue ciprofloxacin to complete 7 more days as per Infectious Disease. Seen by Dr. Elena Gant. I had discussion done with the neurologist Dr. Gmaez and plan to start Decadron for 2 days and we will see the effect. Chronic obstructive lung disease, sleep apnea syndrome, morbid obesity, hypertension, bipolar, chronic rash, bladder outlet obstruction requiring Bruno catheter, chronic constipation. Encouraged patient to continue MiraLax by Dr. Gant, Colace, lactulose, Dulcolax , for good bowel movement before discontinuing the Bruno catheter. Continue bronchodilators, sleep apnea precautions. We will start patient on some deep venous thrombosis prophylaxis and gastric prophylaxis. We will follow. Zulema Amaya MD MTDD
[2017-07-05] MEDS: Enoxaparin 40 mg Syringe SC SCH ×2 (08:31→09:56)
[2017-07-05] MEDS: Calcium-Vit D 250 mg-125 Units Tab UD PO SCH ×2 (08:32→09:56)
[2017-07-05] MEDS: Multivitamin Therapeutic Tab PO SCH (08:33)
[2017-07-05] MEDS: OLANZapine 5 mg Disintegrating Tab PO SCH ×4 (08:35→22:50)
--- NOTE | 2017-07-05 09:36 | CP.PCM.PN ---
Subjective - Date & Time of Evaluation Date of Evaluation: 07/05/17 Time of Evaluation: 09:34 - Subjective Subjective: full consult dictated re-reviewed MRI and examined patient Pt would benefit from ACDF C3/4 C4/5 Explained this to daughter gave her my contact info Pt would require medical and cardiac clearance prior to surgery If there is interest by family to proceed please contact me Objective - Vital Signs/Intake and Output Vital Signs (last 24 hours): Temp Pulse Resp BP Pulse Ox 97.8 F 97 H 20 137/82 95 07/05/17 05:59 07/05/17 05:59 07/05/17 05:59 07/05/17 05:59 07/05/17 05:59 Intake and Output: 07/05/17 07/05/17 06:59 18:59 Intake Total 460 Output Total 1900 Balance -1440 - Medications Medications: Current Medications Acetaminophen (Tylenol 325mg Tab) 650 mg PO Q6H PRN PRN Reason: Pain, moderate (4-7) Last Admin: 07/04/17 15:42 Dose: 650 mg Albuterol/Ipratropium (Duoneb 3 Mg/0.5 Mg (3 Ml) Ud) 3 ml IH [id number] PRN PRN Reason: Shortness of Breath Last Admin: 07/04/17 15:53 Dose: 3 ml Aspirin (Aspirin Chewable) 81 mg PO DAILY [facility] Last Admin: 07/05/17 08:31 Dose: 81 mg Bisacodyl (Dulcolax) 10 mg RC DAILY [facility] Last Admin: 07/04/17 11:00 Dose: Not Given Calcium/Vitamin D (Oscal-D 250 Mg-125 Units Tab) 1 tab PO DAILY [facility] Last Admin: 07/05/17 08:32 Dose: 1 tab Ciprofloxacin (Cipro) 500 mg PO Q12 [facility] PRN Reason: Protocol Stop: 07/10/17 16:16 Last Admin: 07/05/17 08:30 Dose: 500 mg Docusate Sodium (Colace) 200 mg PO DAILY [facility] Last Admin: 07/04/17 10:47 Dose: 200 mg Enoxaparin Sodium (Lovenox) 40 mg SC DAILY [facility] PRN Reason: Protocol Last Admin: 07/05/17 08:31 Dose: 40 mg Famotidine (Pepcid) 40 mg PO HS [facility] Last Admin: 07/04/17 21:30 Dose: 40 mg Ferrous Sulfate (Feosol) 324 mg PO TID [facility] Last Admin: 07/04/17 18:58 Dose: 324 mg Fluoxetine HCl (Prozac) 10 mg PO DAILY [facility] Last Admin: 07/05/17 08:35 Dose: 10 mg Folic Acid (Folic Acid) 1 mg PO DAILY [facility] Last Admin: 07/05/17 08:30 Dose: 1 mg Guaifenesin (Robitussin) 100 mg PO TID [facility] Last Admin: 07/04/17 19:08 Dose: Not Given Hydralazine HCl (Apresoline) 10 mg PO QID PRN PRN Reason: for sbp>170 Dexamethasone 4 mg/ Sodium (Chloride) 51 mls @ 150 mls/hr IV Q6H [facility] Last Admin: 07/05/17 04:18 Dose: 150 mls/hr Lactulose (Enulose) 20 gm PO DAILY [facility] Last Admin: 07/04/17 10:48 Dose: 20 gm Lidocaine (Lidoderm) 2 ea TD 2200 [facility] Last Admin: 07/04/17 21:30 Dose: 2 ea Loratadine (Claritin) 10 mg PO DAILY [facility] Last Admin: 07/05/17 08:29 Dose: 10 mg Metoclopramide HCl (Reglan) 10 mg PO 0600,1130,1630,2200 [facility] Last Admin: 07/05/17 05:11 Dose: 10 mg Montelukast Sodium (Singulair) 10 mg PO DAILY [facility] Last Admin: 07/05/17 08:29 Dose: 10 mg Multivitamins (Thera Tab) 1 tab PO 0800 [facility] Last Admin: 07/05/17 08:33 Dose: 1 tab Non-Formulary Medication (Mirabegron [Myrbetriq]) 25 mg PO DAILY [facility] Last Admin: 07/04/17 10:48 Dose: Not Given Olanzapine (Zyprexa Zydis) 5 mg PO AMHS [facility] PRN Reason: Protocol Last Admin: 07/05/17 08:35 Dose: 5 mg Polyethylene Glycol (Miralax) 17 gm PO DAILY [facility] Last Admin: 07/04/17 10:48 Dose: 17 gm Tamsulosin HCl (Flomax) 0.4 mg PO DAILY [facility] Last Admin: 07/05/17 08:29 Dose: 0.4 mg - Labs Labs: 07/04/17 07:00 07/04/17 07:00 PT 12.6 SECONDS (9.4-12.5) H 06/22/17 12:30 INR 1.09 (0.93-1.08) H 06/22/17 12:30 APTT 29.6 Seconds (25.1-36.5) 06/22/17 12:30
[2017-07-05] MEDS: POLYETHYLENE GLYCOL 3350 17 GM/Dose PACKET PO SCH (09:56)
[2017-07-05] MEDS: MIRABEGRON 25 MG PO SCH (09:56)
[2017-07-05] MEDS: guaiFENesin 100 mg/5 ml Syrup UD PO SCH ×2 (09:57→17:19)
--- NOTE | 2017-07-05 11:26 | CP.PCM.PN ---
Subjective - Date & Time of Evaluation Date of Evaluation: 07/05/17 Time of Evaluation: 09:40 - Subjective Subjective: Denies chest pain or shortness of breath however verbalized to be tired and sleepy Reason for consult and follow up: Hypertension, hyperlipidemia,bipolar disorder, schizophrenia, non-obstructive coronary artery disease, last cardiac cath in 2004. Repeat stress test in 2014- suspicious ischemia however refused cardiac catherization at that time. Previous ECHO showed mild mitral and tricuspid regurgitation . Preserved LV function. 3.37 seconds pause on telemetry. Held Betablocker and holter monitor showed NSR not requiring PPM. patient was in 5R , however she fell and rule out syncope. She was transferred to telemetry. Objective - Vital Signs/Intake and Output Vital Signs (last 24 hours): Temp Pulse Resp BP Pulse Ox 97.8 F 97 H 20 137/82 95 07/05/17 05:59 07/05/17 05:59 07/05/17 05:59 07/05/17 05:59 07/05/17 05:59 Intake and Output: 07/05/17 07/05/17 06:59 18:59 Intake Total 460 Output Total 1900 Balance -1440 - Medications Medications: Current Medications Acetaminophen (Tylenol 325mg Tab) 650 mg PO Q6H PRN PRN Reason: Pain, moderate (4-7) Last Admin: 07/04/17 15:42 Dose: 650 mg Albuterol/Ipratropium (Duoneb 3 Mg/0.5 Mg (3 Ml) Ud) 3 ml IH [id number] PRN PRN Reason: Shortness of Breath Last Admin: 07/04/17 15:53 Dose: 3 ml Aspirin (Aspirin Chewable) 81 mg PO DAILY [facility] Last Admin: 07/05/17 09:54 Dose: Not Given Bisacodyl (Dulcolax) 10 mg RC DAILY [facility] Last Admin: 07/05/17 09:55 Dose: Not Given Calcium/Vitamin D (Oscal-D 250 Mg-125 Units Tab) 1 tab PO DAILY [facility] Last Admin: 07/05/17 09:56 Dose: Not Given Ciprofloxacin (Cipro) 500 mg PO Q12 [facility] PRN Reason: Protocol Stop: 07/10/17 16:16 Last Admin: 07/05/17 09:54 Dose: Not Given Docusate Sodium (Colace) 200 mg PO DAILY [facility] Last Admin: 07/05/17 09:55 Dose: Not Given Enoxaparin Sodium (Lovenox) 40 mg SC DAILY [facility] PRN Reason: Protocol Last Admin: 07/05/17 09:56 Dose: Not Given Famotidine (Pepcid) 40 mg PO HS [facility] Last Admin: 07/04/17 21:30 Dose: 40 mg Ferrous Sulfate (Feosol) 324 mg PO TID [facility] Last Admin: 07/05/17 09:55 Dose: 324 mg Fluoxetine HCl (Prozac) 10 mg PO DAILY [facility] Last Admin: 07/05/17 09:57 Dose: Not Given Folic Acid (Folic Acid) 1 mg PO DAILY [facility] Last Admin: 07/05/17 09:56 Dose: Not Given Guaifenesin (Robitussin) 100 mg PO TID [facility] Last Admin: 07/05/17 09:57 Dose: Not Given Hydralazine HCl (Apresoline) 10 mg PO QID PRN PRN Reason: for sbp>170 Dexamethasone 4 mg/ Sodium (Chloride) 51 mls @ 150 mls/hr IV Q6H [facility] Last Admin: 07/05/17 10:00 Dose: 150 mls/hr Lactulose (Enulose) 20 gm PO DAILY [facility] Last Admin: 07/05/17 09:55 Dose: 20 gm Lidocaine (Lidoderm) 2 ea TD 2200 [facility] Last Admin: 07/04/17 21:30 Dose: 2 ea Loratadine (Claritin) 10 mg PO DAILY [facility] Last Admin: 07/05/17 09:55 Dose: Not Given Metoclopramide HCl (Reglan) 10 mg PO 0600,1130,1630,2200 [facility] Last Admin: 07/05/17 05:11 Dose: 10 mg Montelukast Sodium (Singulair) 10 mg PO DAILY [facility] Last Admin: 07/05/17 09:57 Dose: Not Given Multivitamins (Thera Tab) 1 tab PO 0800 [facility] Last Admin: 07/05/17 08:33 Dose: 1 tab Non-Formulary Medication (Mirabegron [Myrbetriq]) 25 mg PO DAILY [facility] Last Admin: 07/05/17 09:56 Dose: Not Given Olanzapine (Zyprexa Zydis) 5 mg PO AMHS [facility] PRN Reason: Protocol Last Admin: 07/05/17 08:35 Dose: 5 mg Polyethylene Glycol (Miralax) 17 gm PO DAILY [facility] Last Admin: 07/05/17 09:56 Dose: 17 gm Tamsulosin HCl (Flomax) 0.4 mg PO DAILY [facility] Last Admin: 07/05/17 09:55 Dose: Not Given - Labs Labs: 07/04/17 07:00 07/04/17 07:00 PT 12.6 SECONDS (9.4-12.5) H 06/22/17 12:30 INR 1.09 (0.93-1.08) H 06/22/17 12:30 APTT 29.6 Seconds (25.1-36.5) 06/22/17 12:30 Assessment and Plan - Assessment and Plan (Free Text) Assessment: Hypertension, hyperlipidemia,bipolar disorder,schizophrenia, non-obstructive coronary artery disease, last cardiac cath in 2004. Repeat stress test in 2014 - suspicious ischemia however refused cardiac catherization at that time. Previous ECHO showed mild mitral and tricuspid regurgitation . Preserved LV function. 3.37 seconds pause on telemetry. Held Betablocker and holter monitor showed NSR not requiring PPM. patient was in 5R, however she fell and rule out syncope. She was transferred to telemetry. and now has urinary tract infection on antibiotics. Plan: Continue antibiotics for urinary tract infection Patient feels tired and sleeping due UTI Patient refusing cardiac catheterization, awaiting daughter to discuss with patient Cardiac status stable Continue current medications Continue current treatment K+ WNL Will follow up Plan and treatment discussed with Dr. Sanchez
--- NOTE | 2017-07-05 15:43 | US ---
HISTORY: Leg pain and swelling. Evaluate for DVT PHYSICIAN(S): Horacio Delaney MD. TECHNIQUE: Duplex sonography and color-flow Doppler with graded compression were used to evaluate the deep venous systems of both lower extremities. FINDINGS: The visualized deep venous systems of both lower extremities are sonographically normal and compressible. Normal wave forms and augmentation are seen. There is no sonographic evidence for deep venous thrombosis in the visualized segments of both lower extremities. IMPRESSION: No sonographic evidence for deep venous thrombosis in the visualized segments of both lower extremities.
[2017-07-05] MEDS ORDERED: Dexamethasone 4 mg/1 ml ONE (16:26)
[2017-07-05] MEDS: Lidocaine 5% Patch TD SCH (22:04)
--- NOTE | 2017-07-05 23:41 | PN ---
DATE: 07/05/2017 SUBJECTIVE: The patient is in bed, in no acute distress, nontoxic. OBJECTIVE: VITAL SIGNS: Temperature is 97, blood pressure is 130/60, respiratory rate of 20. HEENT: Examination of HEENT is unremarkable. NECK: Supple. LUNGS: Have decreased breath sounds. HEART: Normal S1 and S2. ABDOMEN: Soft. LABORATORY DATA: Reveals a white count of 8.9, hemoglobin of 12 and chemistries revealed from yesterday, BUN of 38, creatinine of 1. Urinalysis was reviewed. Microbiology reveals Proteus. Review of orders reveals the patient is off of antibiotics. Reviewing medication reveals the Cipro was dropped, not given today. Dr. Foster progress note is reviewed and then patient had an ultrasound of the lower extremities. No evidence of DVT. Dr. Dale Davies's progress note is reviewed. ASSESSMENT AND PLAN: This is a 76-year-old female with Proteus mirabilis urinary tract infection, schizoaffective disorder, history of urinary tract infection, dyslipidemia, on Cipro. Antibiotic was dropped. We will restart the Cipro and lower dose if creatinine is up to 1.4. We will follow with you. To complete 6 more days. Gene Magana MD
--- NOTE | 2017-07-06 03:44 | PN ---
DATE: 07/05/2017 SUBJECTIVE: The patient is a 76-year-old female. The patient was seen and examined on the bedside, looking comfortable. No nausea, vomiting, or diarrhea. No hematuria or hematochezia. No swelling of the legs. Complaining about pain in both knees. We ordered x-rays. Complaining about fatigued and tired and weakness in all her four extremities. PHYSICAL EXAMINATION: VITAL SIGNS: Temperature 98.5, pulse 80 , blood pressure 119/55, respiratory rate 18. HEENT: Head normocephalic, atraumatic. Eyes, PERRLA. Extraocular muscles intact. Conjunctivae clear. Nose patent. NECK: Supple. No carotid bruit, JVD or thyromegaly. CHEST: Bilaterally symmetrical. HEART: S1 and S2 positive. LUNGS: Clear to auscultation. ABDOMEN: Soft. Bowel sounds positive. No organomegaly. EXTREMITIES: No edema. No cyanosis. NEUROLOGICAL: The patient is awake and alert. Follows simple commands. MEDICATIONS: Hydralazine, aspirin, Cipro, Claritin, Colace, dexamethasone, Dulcolax, DuoNeb, lactulose, Feosol, Flomax, folic acid, Lidoderm, MiraLax, Pepcid, Prozac, Reglan, Robitussin, Singulair. LABORATORY DATA: White blood cells 8.9, hemoglobin 12.6, hematocrit 40.5, platelets 174. Sodium 139, potassium 4.4, BUN 38, creatinine 1. Glucose is 90. Magnesium 2.4. ASSESSMENT AND PLAN: Ms. Karolina Puri is a 76-year-old lady with renal insufficiency; hypomagnesemia - being replaced; abnormal liver function test, trending down; hematuria; urinary tract infection; seen by cigar head holer, Dr. Sanchez; history of hypertension, hypercholesterolemia, bipolar, schizophrenia, noncompliant, nonobstructive coronary artery disease, last cardiac catheterization in 2004, repeat stress test in 2014, suspicious of ischemia; however, refused cardiac catheterization at that time and this time also. There was 3.37 second pause on telemetry, held the beta-blockers, and Holter monitor showed normal sinus rhythm, not requiring a permanent pacemaker. The patient was in 5R; however, she fell and ruled out syncope, she was transferred to Telemetry. Lower extremity ultrasound was done, reviewed by me, seen by Dr. Dale Davies, neurosurgeon. According to him, he reviewed the MRI and examined the patient, the patient will benefit from surgery, and he explained to the patient's daughter, even I explained to the patient's daughter. Dr. Davies gave his contact information to daughter. The patient is given Lovenox with the permission of neurosurgeon, and cervical collar with the permission of neurosurgeon, Dr. Davies. nurse practitioner spoke to Dr. Davies, and according to him, we can give a cervical collar for the patient's comfort. Daughter is asking a second opinion for Neurosurgery. Discussion done with Dr. Martínez. We will try to arrange another neurosurgeon for a second opinion if we can do, but we will call neurologist for second opinion, Dr. Konstantin Regan, and for complete neurological examination. Discussion done with Dr. Gant and the patient's daughter at length of time. All questions answered. The patient has urinary tract infection with Proteus mirabilis. Continue ciprofloxacin to complete 7 more days. Fall precautions. The patient has history of chronic obstructive lung disease, sleep apnea syndrome, morbid obesity, chronic rash. The patient saw multiple times shingles roofer as outpatient for chronic rash. Bladder outlet obstruction requiring Bruno catheter, chronic constipation. Encouraged the patient to have MiraLax, so she can have bowel movement. Careful with sedation. Continue present treatment. Reviewed the patient's cervical spine MRI and brain MRI. We will put the patient on one-to-one. Repeat labs. We will follow up. Zulema Amaya MD [facility]
--- NOTE | 2017-07-06 03:48 | PN ---
DATE: 07/05/2017 PULMONARY PROGRESS NOTE REFERRING PHYSICIAN: Zulema Amaya MD SUBJECTIVE: She is lying in the bed at 45 degrees. Feels okay. No headache, no rhinitis. Feeling tingling and weakness of upper and lower extremity. The patient's daughter and son is bedside, had multiple questions. The patient has no cough. No shortness of breath. No chest pain. No nausea. Still require Bruno catheter. Refusing medication including laxatives. Overnight events noted. The patient had Neurology consult. MRI of the neck was done. Also surgical evaluation was requested. The patient is fully awake and alert. OBJECTIVE: GENERAL: In no acute distress. VITAL SIGNS: Temp is 98, heart rate 62, respiratory rate is 80, blood pressure 119/55, pulse ox 95% on 2 liters nasal cannula. HEENT: Moist mucous membrane. Crowded airway. Mallampati score is 1. LUNGS: Has fair airflow with rhonchi. HEART: S1 and S2. ABDOMEN: Soft, nontender. No hepatomegaly. EXTREMITIES: No edema. NEUROLOGIC: Awake, alert and follows simple command, but expressing weakness of the upper and lower extremity. MEDICATIONS: She is on hydralazine 10 mg four times a day p.r.n., aspirin 81 mg daily, Cipro 250 mg twice a day, Claritin 10 mg daily, Colace 200 mg daily, dexamethasone 4 mg every 6 hours, Dulcolax 10 mg daily, DuoNeb every 6 hours p.r.n., lactulose 20 g daily, ferrous sulfate 324 mg 3 times a day, Flomax 0.4 mg daily, folic acid 1 mg daily, lidocaine patch at affected area, Lovenox 40 mg subcu daily, MiraLax 17 g daily, calcium plus vitamin D daily, Pepcid 40 mg daily, Prozac 10 mg daily, Reglan 10 mg four times a day, Robitussin 100 mg 3 times a day, Singulair 10 mg daily, multivitamins daily, Tylenol p.r.n. basis, Zyprexa 5 mg a.m. and at bedtime. LABORATORY DATA: Shows yesterday hemoglobin 12.6, hematocrit 40.5. BUN was 38, creatinine 1. Urine culture has Proteus mirabilis. Venous Doppler of lower extremity done. No evidence of DVT thrombus of the lower extremity reported. The patient was evaluated by Neurosurgery who recommended surgery for her neck findings, but wants cardiac clearance. Cervical spine MRI shows C4 to C5, there is a disk bulge and an osteophytic region producing stenosis at this level. There is flattening of the cord and mild amount of cord edema or . IMPRESSION AND PLAN: Chronic lung disease, may have sleep apnea syndrome, morbid obesity, hypertension, hyperlipidemia, bipolar disorder, chronic rash, bladder outlet obstruction, chronic constipation, has a Bruno catheter, has symptom of neck weakness. Did have a fall, seen by Neurosurgery, evaluated by Neurology, recommended surgery. She was started on steroids. SCD to lower extremity being ordered. I spoke to the patient's daughter at bedside and son, all the questions answered. Case also discussed with Dr. Amaya. Family wishing aggressive care, but the patient does not want to have aggressive testing done, in the past she refused even continuous positive airway/BiPAP to use. Cardiac cath has been ordered from the last year and two years, she had been refusing and still refusing. From Neurosurgery note, it looks like they want cardiac clearance before any procedure. For now, continue steroids, neck stenosis precaution. May benefit under one to one supervision. Further decision as per Neurology and Neurosurgery. If any surgery done, she will need a sleep apnea precaution. She is constipated, still refusing oral laxatives. Thank you and we will follow with you. Elena Gant MD
[2017-07-06] MEDS: Dexamethasone 4 MG in Sodium Chloride 0.9% 50 ML IV SCH ×4 (04:49→22:19)
[2017-07-06] MEDS: Albuterol-Ipratrop 3 mg / 0.5 (3 ml) UD IH PRN (06:12)
[2017-07-06 07:02] LABS: HEMOGLOBIN 12.7 g/dL (12.0-16.0); MEAN CELL VOLUME 90.9 fl (80.0-105.0); MEAN CORPUSCULAR HEMOGLOBIN 28.2 pg (25.0-35.0); MEAN CORPUSCULAR HGB CONC 31.1 g/dl (31.0-37.0); MEAN PLATELET VOLUME 12.5 fl (7.0-11.0); RBC 4.5 10^6/uL (3.5-6.1); RED CELL DISTRIBUTION WIDTH 13.8 % (11.5-14.5); WHITE BLOOD COUNT 10.7 10^3/ul (4.5-11.0)
[2017-07-06 07:27] LABS: ALB/GLOB RATIO 1.3 (1.1-1.8); ALBUMIN 3.7 g/dL (3.0-4.8); ALT/SGPT 41 U/L (7-56); AST/SGOT 39 U/L (14-36); BLOOD UREA NITROGEN 26 mg/dL (7-21); CALCIUM 9.1 mg/dL (8.4-10.5); GFR AFRICAN-AMERICAN > 60; GFR NON-AFRICAN AMERICAN > 60
--- NOTE | 2017-07-06 08:03 | CP.PCM.PN ---
Subjective - Date & Time of Evaluation Date of Evaluation: 07/06/17 Time of Evaluation: 06:30 - Subjective Subjective: More awake today, talking more, Denies chest pain or shortness of breath, wanted to go home for grandson's graduation Reason for consult and follow up: Hypertension, hyperlipidemia,bipolar disorder, schizophrenia, non-obstructive coronary artery disease, last cardiac cath in 2004. Repeat stress test in 2014- suspicious ischemia however refused cardiac catherization at that time. Previous ECHO showed mild mitral and tricuspid regurgitation . Preserved LV function. 3.37 seconds pause on telemetry. Held Betablocker and holter monitor showed NSR not requiring PPM. patient was in 5R , however she fell and rule out syncope. She was transferred to telemetry. Seen and examined by me and Dr. Sanchez Objective - Vital Signs/Intake and Output Vital Signs (last 24 hours): Temp Pulse Resp BP Pulse Ox 98 F 60 19 130/70 96 07/06/17 06:00 07/06/17 06:00 07/06/17 06:00 07/06/17 06:00 07/06/17 06:00 Intake and Output: 07/06/17 07/06/17 06:59 18:59 Intake Total 460 Output Total 700 Balance -240 - Medications Medications: Current Medications Acetaminophen (Tylenol 325mg Tab) 650 mg PO Q6H PRN PRN Reason: Pain, moderate (4-7) Last Admin: 07/05/17 14:55 Dose: 650 mg Albuterol/Ipratropium (Duoneb 3 Mg/0.5 Mg (3 Ml) Ud) 3 ml IH [id number] PRN PRN Reason: Shortness of Breath Last Admin: 07/06/17 06:12 Dose: 3 ml Aspirin (Aspirin Chewable) 81 mg PO DAILY [facility] Last Admin: 07/05/17 09:54 Dose: Not Given Bisacodyl (Dulcolax) 10 mg RC DAILY [facility] Last Admin: 07/05/17 09:55 Dose: Not Given Calcium/Vitamin D (Oscal-D 250 Mg-125 Units Tab) 1 tab PO DAILY [facility] Last Admin: 07/05/17 09:56 Dose: Not Given Ciprofloxacin (Cipro) 250 mg PO Q12 [facility] PRN Reason: Protocol Stop: 07/11/17 18:13 Last Admin: 07/05/17 22:04 Dose: 250 mg Docusate Sodium (Colace) 200 mg PO DAILY [facility] Last Admin: 07/05/17 09:55 Dose: Not Given Enoxaparin Sodium (Lovenox) 40 mg SC DAILY [facility] PRN Reason: Protocol Last Admin: 07/05/17 09:56 Dose: Not Given Famotidine (Pepcid) 40 mg PO HS [facility] Last Admin: 07/05/17 22:01 Dose: 40 mg Ferrous Sulfate (Feosol) 324 mg PO TID [facility] Last Admin: 07/05/17 17:18 Dose: 324 mg Fluoxetine HCl (Prozac) 10 mg PO DAILY [facility] Last Admin: 07/05/17 09:57 Dose: Not Given Folic Acid (Folic Acid) 1 mg PO DAILY [facility] Last Admin: 07/05/17 09:56 Dose: Not Given Guaifenesin (Robitussin) 100 mg PO TID [facility] Last Admin: 07/05/17 17:19 Dose: Not Given Hydralazine HCl (Apresoline) 10 mg PO QID PRN PRN Reason: for sbp>170 Dexamethasone 4 mg/ Sodium (Chloride) 51 mls @ 150 mls/hr IV Q6H [facility] Last Admin: 07/06/17 04:49 Dose: 150 mls/hr Lactulose (Enulose) 20 gm PO DAILY [facility] Last Admin: 07/05/17 09:55 Dose: 20 gm Lidocaine (Lidoderm) 2 ea TD 2200 [facility] Last Admin: 07/05/17 22:04 Dose: 2 ea Loratadine (Claritin) 10 mg PO DAILY [facility] Last Admin: 07/05/17 09:55 Dose: Not Given Montelukast Sodium (Singulair) 10 mg PO DAILY [facility] Last Admin: 07/05/17 09:57 Dose: Not Given Multivitamins (Thera Tab) 1 tab PO 0800 [facility] Last Admin: 07/05/17 08:33 Dose: 1 tab Non-Formulary Medication (Mirabegron [Myrbetriq]) 25 mg PO DAILY [facility] Last Admin: 07/05/17 09:56 Dose: Not Given Polyethylene Glycol (Miralax) 17 gm PO DAILY [facility] Last Admin: 07/05/17 09:56 Dose: 17 gm Tamsulosin HCl (Flomax) 0.4 mg PO DAILY [facility] Last Admin: 07/05/17 09:55 Dose: Not Given - Labs Labs: 07/06/17 06:30 07/06/17 06:30 PT 12.6 SECONDS (9.4-12.5) H 06/22/17 12:30 INR 1.09 (0.93-1.08) H 06/22/17 12:30 APTT 29.6 Seconds (25.1-36.5) 06/22/17 12:30 Assessment and Plan - Assessment and Plan (Free Text) Assessment: Hypertension, hyperlipidemia,bipolar disorder,schizophrenia, non-obstructive coronary artery disease, last cardiac cath in 2004. Repeat stress test in 2014 - suspicious ischemia however refused cardiac catherization at that time. Previous ECHO showed mild mitral and tricuspid regurgitation . Preserved LV function. 3.37 seconds pause on telemetry. Held Betablocker and holter monitor showed NSR not requiring PPM. patient was in 5R, however she fell and rule out syncope. She was transferred to telemetry. and now has urinary tract infection on antibiotics. Plan: Continue antibiotics for urinary tract infection Feels better and more awake today Patient refusing cardiac catheterization, Dr. Sanchez discussed with daughter however patient still refusing Cardiac status stable Continue current medications Continue current treatment Fall precaution Will follow up Plan and treatment discussed with Dr. Sanchez
--- NOTE | 2017-07-06 08:13 | CON ---
DATE: HISTORY OF PRESENT ILLNESS: I was asked to see this 76-year-old woman, but the daughter requested that I speak to her first, which I did. Yvette and I had a lengthy conversation last night about what the MRI shows and mother's general condition. Ms. Puri was admitted on the 06/22/2017 with a history of schizophrenia, hypertension, with a feeling of pressure in her chest, shortness of breath, history of bronchitis, migraine headaches, arthritis, back pain, status post multiple falls in the past, status post left arm fracture, urinary incontinence, repeated UTIs, history of schizophrenia, status post ECT, depression, and anxiety. At some point during this hospitalization, it was noted that she has a change in her ability to use her arms and legs. It is not clear exactly when this happened. There was a fall that the patient sustained and it is difficult to obtain from the medical record or from the daughter whether this change was prior to or subsequent to this fall. However, the patient is not very easy to obtain a direct history from. She has difficulty feeling in using her arms and legs. She can no longer walk where as when she was admitted, she was able to walk to the bathroom. She has inability to use her hands more so than her arms and her weakness is more distal than proximal. She has an MRI of the cervical spine, which demonstrates severe cord compression at C4-C5 secondary to osteophytic ridging and disk herniation as well as a left central foraminal disk herniation osteophyte at C3-C4. This also was causing some degree of cord compression. She is very difficult to examine and not very cooperative; however, she does appear to be weak from the deltoids down including both her lower extremities. The strength in the biceps is somewhere about 4-/5, triceps 3 to 3+/5, of the hands bilaterally; this is all bilaterally, 2/5. Lower extremity is fairly symmetric and equal at strength at 3/5. Deltoids, very difficult to test on her, possibly 3/5, possibly 2/5. She has decreased sensation to pin in her arms from approximately C4 dermatome down to C7-T1. She has normal sensation in her chest and abdomen as well as in her lower extremities. She has 0/4 reflexes in the biceps, triceps, brachial radialis. She has no Metz sign, but she does have sustained clonus in both lower extremities and in the left knee, she has sustained clonus on knee jerk. Her toes are upgoing bilaterally. 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 I explained to the daughter that there is no alternative in treatment to surgery given the degree of compression and her inability to use her arms and walk. There are concerns regarding whether or not the family wishes to proceed with this, particularly in the phase of the fact that the family refused cardiac catheterization prior to any discussion of surgery. It would be highly unlikely that the treer would clear the patient at this point without obtaining cardiac catheterization and I certainly would not allow anesthesia to proceed with her surgery if she is not absolutely medically cleared. It is fairly obvious that she is a fairly high-risk patient, but still unless there is some sort of medical clearance, we could not proceed. I made the daughter aware of this. She is going to discuss this with the PMD as well as her treer some decision about what she wishes to do in terms of her general medical workup in terms of getting her ready for surgery and to decide whether or not she wishes to proceed with surgery. Unless I hear otherwise, I will assume that the family has no further interest in surgical intervention; however, I did stress to the daughter that she will continue to worsen without surgery and that there is really no chance of improvement without surgery. I also made it clear that there is no guarantee that she will have a significant neurologic improvement with decompression, but some improvement is expected. Lastly, I did explain to the daughter the risks, alternatives, and what the actual surgical procedure entails. Again, if the family wishes to proceed, contact me and I will schedule surgery. Dale Davies MD
[2017-07-06] MEDS: POLYETHYLENE GLYCOL 3350 17 GM/Dose PACKET PO SCH (09:03)
[2017-07-06] MEDS: Enoxaparin 40 mg Syringe SC SCH (09:03)
[2017-07-06] MEDS: Multivitamin Therapeutic Tab PO SCH (09:04)
[2017-07-06] MEDS: Calcium-Vit D 250 mg-125 Units Tab UD PO SCH (09:04)
[2017-07-06] MEDS: MIRABEGRON 25 MG PO SCH (09:07)
[2017-07-06] MEDS: guaiFENesin 100 mg/5 ml Syrup UD PO SCH ×3 (09:23→18:22)
--- NOTE | 2017-07-06 11:24 | CP.PCM.CON ---
<LarryRobert - Last Filed: 07/06/17 15:34> History of Present Illness - History of Present Illness History of Present Illness: Neurology Consult Note - Dr. Regan CC: syncope HPI: 76 F with a PMHx of COPD, schizophrenia, HTN, CAD, bipolar dsr,and HLD presented to the [facility] ED with initial complaints of shortness of breath and pleuritic chest pains and orthopnea. Pt was found to have proteus UTI and has been on abx for treatment. However, during this hospital stay, pt experienced 3.37 seconds pause on telemetry. Holter monitor showed NSR . Code star was called for unwitnessed fall 07/01/17. Patient's roommate's family notified nursing that patient had fallen. When arrived in room patient noted to be face down on floor beside bed. Patient cervical spine was stabilized and patient was placed on back board. Upon initial evaluation patient was noted to be able to move her upper and lower extremities spontaneously, patient was without wheatley sign or racoon sign. Patient was noted to have small laceration above her left eye with small amount of fresh blood. Patient complained of bilateral arm numbness described as pins and needles. Patient was able to move all four extremities. Cervical spine was stabilized with rolled towels and taping down upon back board. Patient was taken to CT for imaging of cervical spine, chest, head, maxilla facial as well as x ray for shoulder. Patient is unable to recall events leading to fall or to report specific neurological deficits other than arm numbness. PMHx:schizophrenia, HTN, COPD, morbid obesity bipolar dsr,and HLD PSHx: right breast surgery, cholecystectomy, ECT SHx: former smoker, denied etoh or illicit drug use. FamHx: Noncontributory Meds: asa, colace, prozac, pepcid, folic acid, losartan, lopressor, hydralazine , ferrous sulfate, ;lasix, singulair, zyprexa Allergies: Clonazepam, seroquel, risperdone, olazapine, tomatoes Past Patient History - Infectious Disease Hx of Infectious Diseases: None - Tetanus Immunizations Tetanus Immunization: Unknown - Past Social History Smoking Status: Former Smoker - CARDIAC Hx Hypertension: Yes - PULMONARY Hx Respiratory Disorders: No - NEUROLOGICAL Hx Neurological Disorder: No - HEENT Hx HEENT Problems: No - RENAL Hx Chronic Kidney Disease: No - ENDOCRINE/METABOLIC Hx Endocrine Disorders: No - HEMATOLOGICAL/ONCOLOGICAL Hx Blood Disorders: No - INTEGUMENTARY Hx Dermatological Problems: No - MUSCULOSKELETAL/RHEUMATOLOGICAL Hx Arthritis: Yes - GASTROINTESTINAL Hx Gastrointestinal Disorders: No - GENITOURINARY/GYNECOLOGICAL Hx Genitourinary Disorders: No - PSYCHIATRIC Hx Psychophysiologic Disorder: Yes Hx Anxiety: Yes Hx Bipolar Disorder: Yes Hx Depression: Yes Hx Substance Use: No - SURGICAL HISTORY Hx Surgeries: No - ANESTHESIA Hx Anesthesia: Yes Hx Anesthesia Reactions: No Hx Malignant Hyperthermia: No Meds Allergies/Adverse Reactions: Allergies Allergy/AdvReac Type Severity Reaction Status Date / Time clonazepam Allergy RASH Verified 06/22/17 12:10 olanzapine [From Zyprexa] Allergy RASH Verified 06/25/17 22:49 quetiapine Allergy RASH Verified 06/22/17 12:10 risperidone Allergy RASH Verified 06/22/17 12:10 tomato AdvReac RASH Verified 06/22/17 12:10 - Medications Medications: Current Medications Acetaminophen (Tylenol 325mg Tab) 650 mg PO Q6H PRN PRN Reason: Pain, moderate (4-7) Last Admin: 07/05/17 14:55 Dose: 650 mg Albuterol/Ipratropium (Duoneb 3 Mg/0.5 Mg (3 Ml) Ud) 3 ml IH [id number] PRN PRN Reason: Shortness of Breath Last Admin: 07/06/17 06:12 Dose: 3 ml Aspirin (Aspirin Chewable) 81 mg PO DAILY [facility] Last Admin: 07/06/17 09:04 Dose: 81 mg Bisacodyl (Dulcolax) 10 mg RC DAILY [facility] Last Admin: 07/06/17 09:23 Dose: 10 mg Calcium/Vitamin D (Oscal-D 250 Mg-125 Units Tab) 1 tab PO DAILY [facility] Last Admin: 07/06/17 09:04 Dose: 1 tab Ciprofloxacin (Cipro) 250 mg PO Q12 [facility] PRN Reason: Protocol Stop: 07/11/17 18:13 Last Admin: 07/06/17 09:27 Dose: 250 mg Docusate Sodium (Colace) 200 mg PO DAILY [facility] Last Admin: 07/06/17 09:04 Dose: 200 mg Enoxaparin Sodium (Lovenox) 40 mg SC DAILY [facility] PRN Reason: Protocol Last Admin: 07/06/17 09:03 Dose: 40 mg Famotidine (Pepcid) 40 mg PO HS [facility] Last Admin: 07/05/17 22:01 Dose: 40 mg Ferrous Sulfate (Feosol) 324 mg PO TID [facility] Last Admin: 07/06/17 09:04 Dose: 324 mg Fluoxetine HCl (Prozac) 10 mg PO DAILY [facility] Last Admin: 07/06/17 09:23 Dose: 10 mg Folic Acid (Folic Acid) 1 mg PO DAILY [facility] Last Admin: 07/06/17 09:04 Dose: 1 mg Guaifenesin (Robitussin) 100 mg PO TID [facility] Last Admin: 07/06/17 09:23 Dose: 100 mg Hydralazine HCl (Apresoline) 10 mg PO QID PRN PRN Reason: for sbp>170 Dexamethasone 4 mg/ Sodium (Chloride) 51 mls @ 150 mls/hr IV Q6H [facility] Last Admin: 07/06/17 09:07 Dose: 150 mls/hr Lactulose (Enulose) 20 gm PO DAILY [facility] Last Admin: 07/06/17 09:03 Dose: 20 gm Lidocaine (Lidoderm) 2 ea TD 2200 [facility] Last Admin: 07/05/17 22:04 Dose: 2 ea Loratadine (Claritin) 10 mg PO DAILY [facility] Last Admin: 07/06/17 09:04 Dose: 10 mg Montelukast Sodium (Singulair) 10 mg PO DAILY [facility] Last Admin: 07/06/17 09:23 Dose: 10 mg Multivitamins (Thera Tab) 1 tab PO 0800 [facility] Last Admin: 07/06/17 09:04 Dose: 1 tab Non-Formulary Medication (Mirabegron [Myrbetriq]) 25 mg PO DAILY [facility] Last Admin: 07/06/17 09:07 Dose: Not Given Polyethylene Glycol (Miralax) 17 gm PO DAILY [facility] Last Admin: 07/06/17 09:03 Dose: 17 gm Tamsulosin HCl (Flomax) 0.4 mg PO DAILY [facility] Last Admin: 07/06/17 09:04 Dose: 0.4 mg Physical Exam - Constitutional Appears: No Acute Distress - Head Exam Additional comments: Rt forehead laceration - Eye Exam Eye Exam: EOMI, Normal appearance, PERRL Pupil Exam: NORMAL ACCOMODATION, PERRL - ENT Exam ENT Exam: Mucous Membranes Moist, Normal Exam - Respiratory Exam Respiratory Exam: Clear to Auscultation Bilateral, NORMAL BREATHING PATTERN - Cardiovascular Exam Cardiovascular Exam: REGULAR RHYTHM, +S1, +S2 - GI/Abdominal Exam GI & Abdominal Exam: Normal Bowel Sounds, Soft. absent: Tenderness - Neurological Exam Neurological exam: Alert, CN II-XII Intact, Oriented x3 - Expanded Neurological Exam Expanded Cerebellar Function: Finger to Nose: Normal, Heel to Evans: Normal, Romberg: Normal Upper motor neuron: Babinski Sign: Normal, Micky Neglect: Normal, Pronator Drift : Normal, Sensory Extinction: Normal Sensory exam: Lower Extremity 2 Point Discrimination: Abnormal Left, Abnormal Right, Lower Extremity Light Touch: Abnormal Right, Abnormal Left, Lower Extremity Pin Prick: Abnormal Right, Abnormal Left, Lower Extremity Temperature : Abnormal Left, Abnormal Right, Upper Extremity 2 Point Discrimination: Normal , Upper Extremity Light Touch: Normal, Upper Extremity Pin Prick: Normal, Upper Extremity Temperature: Normal Neuro motor strength exam: Left Upper Extremity: 2/1, Right Upper Extremity: 2/1 , Left Lower Extremity: 3, Right Lower Extremity: 3 DTR: Achilles Tendon Left: 2+, Achilles Tendon Right: 2+, Bicep Left: 2+, Bicep Right: 3+ - Psychiatric Exam Psychiatric exam: Normal Affect, Normal Mood - Skin Skin Exam: Dry, Intact, Normal Color, Warm Results - Vital Signs Recent Vital Signs: Last Vital Signs Temp 98 F 07/06/17 06:00 Pulse 60 07/06/17 06:00 Resp 19 07/06/17 06:00 BP 130/70 07/06/17 06:00 Pulse Ox 96 07/06/17 06:00 - Labs Result Diagrams: 07/06/17 06:30 07/06/17 06:30 Labs: Laboratory Results - last 24 hr 07/06/17 07/06/17 06:30 06:30 WBC 10.7 D RBC 4.50 Hgb 12.7 Hct 40.9 MCV 90.9 MCH 28.2 MCHC 31.1 RDW 13.8 Plt Count 190 MPV 12.5 H Sodium 140 Potassium 4.7 Chloride 104 Carbon Dioxide 26 Anion Gap 15 BUN 26 H Creatinine 0.9 Est GFR ( Amer) > 60 Est GFR (Non-Af Amer) > 60 Random Glucose 138 H Calcium 9.1 Total Bilirubin 0.3 AST 39 H D ALT 41 Alkaline Phosphatase 81 Total Protein 6.6 Albumin 3.7 Globulin 2.9 Albumin/Globulin Ratio 1.3 Assessment & Plan - Assessment and Plan (Free Text) Assessment: 76 F with a PMHx of COPD, schizophrenia, HTN, CAD, bipolar dsr,and HLD presented to the [facility] ED with initial complaints of shortness of breath and pleuritic chest pains and orthopnea. Pt was found to have proteus UTI and has been on abx for treatment and talbot for urinary outlet obstruction. However, during this hospital stay, pt experienced 3.37 seconds pause on telemetry. Holter monitor showed NSR . Code star was called for unwitnessed fall 07/01/17. Patient's roommate's family notified nursing that patient had fallen. There is complaints of distal weakness. MRI of cervical spine demonstrated severe cord compression at C4-5 2/2 osteophyte ridging and disc herniation. 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 Neurosurgery recommended discetomy and fusion at C3-4, C4-5 Continue antibiotics for urinary tract infection. Patient refusing cardiac catheterization, Dr. Sanchez, cardiology discussed with daughter, RADHA. Echo demonstrated an EF of 59%, trace TR and mild MR, RVSP~59 mm Hg, and pulm HTN. EEG completed will follow up. At this time, spoke with daughter discussing the importance of having the cervical procedure. Pt daughter wishes to have the procedure at [facility], we have also recommended [facility]. Continue decadron at this time, and medical managmeent as per PMD/ID/ and agree with Neurosurgery's input. <Konstantin Regan - Last Filed: 07/06/17 16:45> Meds - Medications Medications: Current Medications Acetaminophen (Tylenol 325mg Tab) 650 mg PO Q6H PRN PRN Reason: Pain, moderate (4-7) Last Admin: 07/05/17 14:55 Dose: 650 mg Albuterol/Ipratropium (Duoneb 3 Mg/0.5 Mg (3 Ml) Ud) 3 ml IH [id number] PRN PRN Reason: Shortness of Breath Last Admin: 07/06/17 06:12 Dose: 3 ml Aspirin (Aspirin Chewable) 81 mg PO DAILY [facility] Last Admin: 07/06/17 09:04 Dose: 81 mg Bisacodyl (Dulcolax) 10 mg RC DAILY [facility] Last Admin: 07/06/17 09:23 Dose: 10 mg Calcium/Vitamin D (Oscal-D 250 Mg-125 Units Tab) 1 tab PO DAILY [facility] Last Admin: 07/06/17 09:04 Dose: 1 tab Ciprofloxacin (Cipro) 250 mg PO Q12 [facility] PRN Reason: Protocol Stop: 07/11/17 18:13 Last Admin: 07/06/17 09:27 Dose: 250 mg Docusate Sodium (Colace) 200 mg PO DAILY [facility] Last Admin: 07/06/17 09:04 Dose: 200 mg Enoxaparin Sodium (Lovenox) 40 mg SC DAILY [facility] PRN Reason: Protocol Last Admin: 07/06/17 09:03 Dose: 40 mg Famotidine (Pepcid) 40 mg PO HS [facility] Last Admin: 07/05/17 22:01 Dose: 40 mg Ferrous Sulfate (Feosol) 324 mg PO TID [facility] Last Admin: 07/06/17 15:01 Dose: 324 mg Fluoxetine HCl (Prozac) 10 mg PO DAILY [facility] Last Admin: 07/06/17 09:23 Dose: 10 mg Folic Acid (Folic Acid) 1 mg PO DAILY [facility] Last Admin: 07/06/17 09:04 Dose: 1 mg Guaifenesin (Robitussin) 100 mg PO TID [facility] Last Admin: 07/06/17 15:01 Dose: 100 mg Hydralazine HCl (Apresoline) 10 mg PO QID PRN PRN Reason: for sbp>170 Dexamethasone 4 mg/ Sodium (Chloride) 51 mls @ 150 mls/hr IV Q6H [facility] Last Admin: 07/06/17 15:44 Dose: 150 mls/hr Lactulose (Enulose) 20 gm PO DAILY [facility] Last Admin: 07/06/17 09:03 Dose: 20 gm Lidocaine (Lidoderm) 2 ea TD 2200 [facility] Last Admin: 07/05/17 22:04 Dose: 2 ea Loratadine (Claritin) 10 mg PO DAILY [facility] Last Admin: 07/06/17 09:04 Dose: 10 mg Montelukast Sodium (Singulair) 10 mg PO DAILY [facility] Last Admin: 07/06/17 09:23 Dose: 10 mg Multivitamins (Thera Tab) 1 tab PO 0800 [facility] Last Admin: 07/06/17 09:04 Dose: 1 tab Non-Formulary Medication (Mirabegron [Myrbetriq]) 25 mg PO DAILY [facility] Last Admin: 07/06/17 09:07 Dose: Not Given Polyethylene Glycol (Miralax) 17 gm PO DAILY [facility] Last Admin: 07/06/17 09:03 Dose: 17 gm Tamsulosin HCl (Flomax) 0.4 mg PO DAILY [facility] Last Admin: 07/06/17 09:04 Dose: 0.4 mg Results - Vital Signs Recent Vital Signs: Last Vital Signs Temp 98.3 F 07/06/17 12:00 Pulse 58 L 07/06/17 12:00 Resp 18 07/06/17 12:00 BP 106/66 07/06/17 12:00 Pulse Ox 97 07/06/17 09:00 - Labs Result Diagrams: 07/06/17 06:30 07/06/17 06:30 Labs: Laboratory Results - last 24 hr 07/06/17 07/06/17 06:30 06:30 WBC 10.7 D RBC 4.50 Hgb 12.7 Hct 40.9 MCV 90.9 MCH 28.2 MCHC 31.1 RDW 13.8 Plt Count 190 MPV 12.5 H Sodium 140 Potassium 4.7 Chloride 104 Carbon Dioxide 26 Anion Gap 15 BUN 26 H Creatinine 0.9 Est GFR ( Amer) > 60 Est GFR (Non-Af Amer) > 60 Random Glucose 138 H Calcium 9.1 Total Bilirubin 0.3 AST 39 H D ALT 41 Alkaline Phosphatase 81 Total Protein 6.6 Albumin 3.7 Globulin 2.9 Albumin/Globulin Ratio 1.3 Assessment & Plan (1) Cervical spinal cord compression Assessment and Plan: Based on the clinical symptoms of bilateral upper extremity weakness, hyper- reflexia, and sensory deficits as well as the MRI demonstrating severe spinal canal stenosis at C4/C5 and cord edema, the patient will require decompressive surgery. Decadron 4 mg Q6 hours IV may be continued for now. I discussed this with the patient and her daughter, who is the POA, and they agreed to undergo surgery, but prefer to have the patient transferred to [facility]. The patient's daughter called to have the patient transferred under Dr. Matias Shine's service for surgery. I called to assist with clinical history and provide information. Status: Acute Priority: High
[2017-07-06 12:32] VITALS: RESP 18
--- NOTE | 2017-07-06 13:13 | CP.PCM.PN ---
Subjective - Date & Time of Evaluation Date of Evaluation: 07/06/17 Time of Evaluation: 10:35 - Subjective Subjective: No fevers, not in distress. Objective - Vital Signs/Intake and Output Vital Signs (last 24 hours): Temp Pulse Resp BP Pulse Ox 98 F 60 19 130/70 96 07/06/17 06:00 07/06/17 06:00 07/06/17 06:00 07/06/17 06:00 07/06/17 06:00 Intake and Output: 07/06/17 07/06/17 06:59 18:59 Intake Total 460 Output Total 700 Balance -240 - Medications Medications: Current Medications Acetaminophen (Tylenol 325mg Tab) 650 mg PO Q6H PRN PRN Reason: Pain, moderate (4-7) Last Admin: 07/05/17 14:55 Dose: 650 mg Albuterol/Ipratropium (Duoneb 3 Mg/0.5 Mg (3 Ml) Ud) 3 ml IH [id number] PRN PRN Reason: Shortness of Breath Last Admin: 07/06/17 06:12 Dose: 3 ml Aspirin (Aspirin Chewable) 81 mg PO DAILY [facility] Last Admin: 07/06/17 09:04 Dose: 81 mg Bisacodyl (Dulcolax) 10 mg RC DAILY [facility] Last Admin: 07/05/17 09:55 Dose: Not Given Calcium/Vitamin D (Oscal-D 250 Mg-125 Units Tab) 1 tab PO DAILY [facility] Last Admin: 07/06/17 09:04 Dose: 1 tab Ciprofloxacin (Cipro) 250 mg PO Q12 [facility] PRN Reason: Protocol Stop: 07/11/17 18:13 Last Admin: 07/05/17 22:04 Dose: 250 mg Docusate Sodium (Colace) 200 mg PO DAILY [facility] Last Admin: 07/06/17 09:04 Dose: 200 mg Enoxaparin Sodium (Lovenox) 40 mg SC DAILY [facility] PRN Reason: Protocol Last Admin: 07/06/17 09:03 Dose: 40 mg Famotidine (Pepcid) 40 mg PO HS [facility] Last Admin: 07/05/17 22:01 Dose: 40 mg Ferrous Sulfate (Feosol) 324 mg PO TID [facility] Last Admin: 07/06/17 09:04 Dose: 324 mg Fluoxetine HCl (Prozac) 10 mg PO DAILY [facility] Last Admin: 07/05/17 09:57 Dose: Not Given Folic Acid (Folic Acid) 1 mg PO DAILY [facility] Last Admin: 07/06/17 09:04 Dose: 1 mg Guaifenesin (Robitussin) 100 mg PO TID [facility] Last Admin: 07/05/17 17:19 Dose: Not Given Hydralazine HCl (Apresoline) 10 mg PO QID PRN PRN Reason: for sbp>170 Dexamethasone 4 mg/ Sodium (Chloride) 51 mls @ 150 mls/hr IV Q6H [facility] Last Admin: 07/06/17 09:07 Dose: 150 mls/hr Lactulose (Enulose) 20 gm PO DAILY [facility] Last Admin: 07/06/17 09:03 Dose: 20 gm Lidocaine (Lidoderm) 2 ea TD 2200 [facility] Last Admin: 07/05/17 22:04 Dose: 2 ea Loratadine (Claritin) 10 mg PO DAILY [facility] Last Admin: 07/06/17 09:04 Dose: 10 mg Montelukast Sodium (Singulair) 10 mg PO DAILY [facility] Last Admin: 07/05/17 09:57 Dose: Not Given Multivitamins (Thera Tab) 1 tab PO 0800 [facility] Last Admin: 07/06/17 09:04 Dose: 1 tab Non-Formulary Medication (Mirabegron [Myrbetriq]) 25 mg PO DAILY [facility] Last Admin: 07/06/17 09:07 Dose: Not Given Polyethylene Glycol (Miralax) 17 gm PO DAILY [facility] Last Admin: 07/06/17 09:03 Dose: 17 gm Tamsulosin HCl (Flomax) 0.4 mg PO DAILY [facility] Last Admin: 07/06/17 09:04 Dose: 0.4 mg - Labs Labs: 07/06/17 06:30 07/06/17 06:30 PT 12.6 SECONDS (9.4-12.5) H 06/22/17 12:30 INR 1.09 (0.93-1.08) H 06/22/17 12:30 APTT 29.6 Seconds (25.1-36.5) 06/22/17 12:30 - Constitutional Appears: Chronically Ill - Head Exam Head Exam: NORMAL INSPECTION - Respiratory Exam Respiratory Exam: Decreased Breath Sounds - Cardiovascular Exam Cardiovascular Exam: +S1, +S2 - GI/Abdominal Exam GI & Abdominal Exam: Soft. absent: Tenderness Assessment and Plan - Assessment and Plan (Free Text) Plan: Assessment UTI with P. mirabilis Schizoaffective disorder history of urinary tract infection dyslipidemia Plan continue Ciprofloxacin to complete 5 more days patient being followed by Neurology
--- NOTE | 2017-07-06 14:17 | PN ---
DATE: 07/06/2017 FOLLOWUP NOTE SUBJECTIVE: In short, the patient is a 76-year-old female with long and debilitating history of schizoaffective disorder, multiple admissions to the psychiatric inpatient unit in the past. At this time, the patient was admitted on the medical site for evaluation of chest pain. Over the course of this hospitalization, the patient fell and she is still in the hospital. This commercial underwriter signed off, but medical team asked to reevaluate the patient because as per medical team, the patient had some allergic reaction to olanzapine. The patient has multiple allergic reaction to clonazepam, olanzapine, Seroquel, Risperdal and food, tomato. This commercial underwriter would like to emphasize the fact that the patient was on olanzapine for years and it was not worsening of her chronic rash. The patient has history of psychosis. The patient had paranoia and the patient had history of somatic delusions that she has syphilis and this commercial underwriter needs to monitor the patient's psychotic symptoms very closely. Last dose of Zyprexa was given on 07/05/2017, but right now it is on hold. The patient was seen today at the morning time. The patient presented to be alert, pleasant, cooperative. The patient remembered this commercial underwriter by name. The patient said that she feels fine. She denied feeling depressed. She denied thoughts of harming herself or others. The patient is quite aware of what is going on with her from the medical standpoint. The patient is pleasant and cooperative. Collaterals from the nursing staff, the patient does not have any agitation, aggression, participate in treatment plan. Vital signs are stable. Temperature 98, pulse is 60, blood pressure 130/70, respirations 19, oxygen saturation is 96. Labs reviewed. Hemoglobin and hematocrit are 2.7 and 40.9. Chemistry reviewed. Urinalysis showed leukocyte esterase positive, granulocytes 6.67. MENTAL STATUS EXAMINATION: The patient presented to be alert, pleasant, cooperative. Socially appropriate. Good eye contact. Speech was normal rate, tone, quality and quantity. At times, the patient has lip smacking, but this is chronic and maybe it is related to the patient wears dentures. Mood described, I feel fine. Affect was reactive. Mood congruent. Thought process coherent and goal directed. Thought content, the patient denied visual, auditory or tactile hallucinations. Denied paranoid ideation. Insight and judgment seems to be fair. Impulses are well controlled. IMPRESSION: As per history, the patient has schizoaffective disorder. Medically [place], the patient has multiple problems. Please see Dr. Amaya's note. PLAN: This commercial underwriter was involved into the patient care because of concerns of chronic rash and medical team feels that it could be related to Zyprexa. Zyprexa is on hold right now since 07/05/2016, today is 07/06/2017. This commercial underwriter would like to emphasize the fact that the patient was on Zyprexa for years and it was not worsening of her chronic rash, but if medical team feels that it is related, we cannot exclude that option. Meanwhile, we will continue monitor the patient on the medical site. This commercial underwriter could implement Clozaril, but we need to discuss this option with the patient's family. At the same time, the patient had severe EPS and lip smacking on first generation of antipsychotic medications. We will follow up and advise accordingly. Right now, the patient is doing well. We will consider either to resume the Zyprexa because the patient was on that medication for years verses Clozaril versus low-potency first-generation of antipsychotic medication such as Thorazine. Should you have any questions, give me a call back. Thank you very much for letting me participate in care of your patient. Geovanna Gallardo MD
[2017-07-06 14:51] VITALS: O2SAT 97
--- NOTE | 2017-07-06 18:10 | PN ---
DATE: 07/06/2017 PULMONARY PROGRESS NOTE REFERRING PHYSICIAN: Zulema Amaya MD SUBJECTIVE: She is lying in the bed at 45 degrees. Feels much better. Had a bowel movement. Has a cervical collar. No headache, no rhinitis. No nausea, no vomiting. No leg swelling. Upper and lower extremity strength claims is improvement in weight. OBJECTIVE: GENERAL: In no acute distress. VITAL SIGNS: Temperature is 98, heart rate is 58, respiratory rate is 18, blood pressure 106/66, pulse ox 97% on nasal cannula. HEENT: Moist mucous membrane. Crowded airway. LUNGS: Have fair airflow with rhonchi. HEART: S1 and S2. ABDOMEN: Soft, nontender. No organomegaly. EXTREMITIES: There is no edema. NEUROLOGICAL: Awake and follows simple commands. Moving all four extremities, but subjectively decreased strength. MEDICATIONS: She is on hydralazine 10 mg q.i.d. p.r.n., aspirin 81 mg daily, Cipro 250 mg twice a day, Claritin 10 mg daily, Colace 200 mg daily, dexamethasone 4 mg every 6 hours, Dulcolax 10 mg daily, DuoNeb every 6 hours p.r.n., lactulose 20 g daily, ferrous sulfate 324 mg three times a day, Flomax 0.4 mg daily, folic acid 1 mg daily, lidocaine patch at affected area, Lovenox 40 mg subcu daily, MiraLax 17 g daily, calcium plus vitamin D daily, Pepcid 40 mg at bedtime, Prozac 10 mg daily, Robitussin 100 mg three times a day, Singulair 10 mg daily, multivitamins daily, Tylenol p.r.n. basis. LABORATORY DATA: Shows hemoglobin 12.7, hematocrit 40.9, WBC 10.7, platelet is 190. Sodium 140, potassium 4.7, chloride 104, bicarbonate 26, BUN 26, creatinine 0.9, glucose is 138, calcium 9.1, AST 39, ALT 41, alkaline phosphatase is 81. Albumin is 3.7. Urine culture has Proteus. IMPRESSION: Chronic lung disease, may have sleep apnea syndrome, hypertension, hyperlipidemia, bipolar disorder, chronic rash, bladder outlet obstruction, has a Bruno catheter, chronic constipation, cervical stenosis. The patient seen by Neurology, also seen by Neurosurgery. Surgery is recommended for decompression. Also being followed by Cardiology. In the past, the patient refused cardiac workup including cardiac cath, pulmonary point of view, she is doing okay. Continue bronchodilator as needed basis. Keep head at 45 degrees. Sleep apnea precaution. She is refusing to use CPAP/BiPAP. Continue to monitor closely for fall. Neurology spoke to family for possible transfer to tertiary care setting with Neurosurgery on board. I believe offer was made for [facility]. Apparently, daughter want the patient to go to [place]. The patient refusing it. For now, continue present therapy. Thank you and we will follow with you. Elena Gant MD
[2017-07-06 18:39] VITALS: BP 118/63; PULSE 54; TEMP 98.6
[2017-07-06] MEDS ORDERED: Dexamethasone 4 mg/1 ml ONE (22:17)
[2017-07-06] MEDS: Lidocaine 5% Patch TD SCH (22:20)
[2017-07-07] MEDS: Dexamethasone 4 MG in Sodium Chloride 0.9% 50 ML IV SCH ×3 (03:57→15:36)
--- NOTE | 2017-07-07 08:28 | CP.PCM.PN ---
Subjective - Date & Time of Evaluation Date of Evaluation: 07/07/17 Time of Evaluation: 07:00 - Subjective Subjective: Lying in bed, sleepy, Denies chest pain or shortness of breath, Reason for consult and follow up: Hypertension, hyperlipidemia,bipolar disorder, schizophrenia, non-obstructive coronary artery disease, last cardiac cath in 2004. Repeat stress test in 2014- suspicious ischemia however refused cardiac catherization at that time. Previous ECHO showed mild mitral and tricuspid regurgitation . Preserved LV function. 3.37 seconds pause on telemetry. Held Betablocker and holter monitor showed NSR not requiring PPM. patient was in 5R , however she fell and rule out syncope. She was transferred to telemetry. Seen and examined by me and Dr. Sanchez Objective - Vital Signs/Intake and Output Vital Signs (last 24 hours): Temp Pulse Resp BP Pulse Ox 98.6 F 54 L 18 118/63 97 07/06/17 18:00 07/06/17 18:00 07/06/17 18:00 07/06/17 18:00 07/06/17 09:00 - Medications Medications: Current Medications Acetaminophen (Tylenol 325mg Tab) 650 mg PO Q6H PRN PRN Reason: Pain, moderate (4-7) Last Admin: 07/07/17 06:19 Dose: 650 mg Albuterol/Ipratropium (Duoneb 3 Mg/0.5 Mg (3 Ml) Ud) 3 ml IH [id number] PRN PRN Reason: Shortness of Breath Last Admin: 07/06/17 06:12 Dose: 3 ml Aspirin (Aspirin Chewable) 81 mg PO DAILY [facility] Last Admin: 07/06/17 09:04 Dose: 81 mg Bisacodyl (Dulcolax) 10 mg RC DAILY [facility] Last Admin: 07/06/17 09:23 Dose: 10 mg Calcium/Vitamin D (Oscal-D 250 Mg-125 Units Tab) 1 tab PO DAILY [facility] Last Admin: 07/06/17 09:04 Dose: 1 tab Ciprofloxacin (Cipro) 250 mg PO Q12 [facility] PRN Reason: Protocol Stop: 07/11/17 18:13 Last Admin: 07/06/17 22:48 Dose: 250 mg Docusate Sodium (Colace) 200 mg PO DAILY [facility] Last Admin: 07/06/17 09:04 Dose: 200 mg Enoxaparin Sodium (Lovenox) 40 mg SC DAILY [facility] PRN Reason: Protocol Last Admin: 07/06/17 09:03 Dose: 40 mg Famotidine (Pepcid) 40 mg PO HS [facility] Last Admin: 07/06/17 22:28 Dose: 40 mg Ferrous Sulfate (Feosol) 324 mg PO TID [facility] Last Admin: 07/06/17 18:22 Dose: 324 mg Fluoxetine HCl (Prozac) 10 mg PO DAILY [facility] Last Admin: 07/06/17 09:23 Dose: 10 mg Folic Acid (Folic Acid) 1 mg PO DAILY [facility] Last Admin: 07/06/17 09:04 Dose: 1 mg Guaifenesin (Robitussin) 100 mg PO TID [facility] Last Admin: 07/06/17 18:22 Dose: 100 mg Hydralazine HCl (Apresoline) 10 mg PO QID PRN PRN Reason: for sbp>170 Dexamethasone 4 mg/ Sodium (Chloride) 51 mls @ 150 mls/hr IV Q6H [facility] Last Admin: 07/07/17 03:57 Dose: 150 mls/hr Lactulose (Enulose) 20 gm PO DAILY [facility] Last Admin: 07/06/17 09:03 Dose: 20 gm Lidocaine (Lidoderm) 2 ea TD 2200 [facility] Last Admin: 07/06/17 22:20 Dose: 2 ea Loratadine (Claritin) 10 mg PO DAILY [facility] Last Admin: 07/06/17 09:04 Dose: 10 mg Montelukast Sodium (Singulair) 10 mg PO DAILY [facility] Last Admin: 07/06/17 09:23 Dose: 10 mg Multivitamins (Thera Tab) 1 tab PO 0800 [facility] Last Admin: 07/06/17 09:04 Dose: 1 tab Non-Formulary Medication (Mirabegron [Myrbetriq]) 25 mg PO DAILY [facility] Last Admin: 07/06/17 09:07 Dose: Not Given Polyethylene Glycol (Miralax) 17 gm PO DAILY [facility] Last Admin: 07/06/17 09:03 Dose: 17 gm Tamsulosin HCl (Flomax) 0.4 mg PO DAILY [facility] Last Admin: 07/06/17 09:04 Dose: 0.4 mg - Labs Labs: 07/06/17 06:30 07/06/17 06:30 PT 12.6 SECONDS (9.4-12.5) H 04/13/18 12:30 INR 1.09 (0.93-1.08) H 06/22/17 12:30 APTT 29.6 Seconds (25.1-36.5) 06/22/17 12:30 - Constitutional Appears: No Acute Distress - Head Exam Additional comments: with neck collar - ENT Exam ENT Exam: Mucous Membranes Moist - Neck Exam Additional comments: neck collar - Respiratory Exam Respiratory Exam: Decreased Breath Sounds, NORMAL BREATHING PATTERN - Cardiovascular Exam Cardiovascular Exam: +S1, +S2 Additional comments: no JVD - GI/Abdominal Exam GI & Abdominal Exam: Soft, Normal Bowel Sounds - Exam Additional comments: talbot catheter - Extremities Exam Extremities Exam: Normal Capillary Refill Additional comments: move all 4 extremities - Neurological Exam Neurological Exam: Alert, Awake, Oriented x3 - Psychiatric Exam Psychiatric exam: Normal Affect, Normal Mood - Skin Skin Exam: Intact, Normal Color, Warm Assessment and Plan - Assessment and Plan (Free Text) Assessment: Hypertension, hyperlipidemia,bipolar disorder,schizophrenia, non-obstructive coronary artery disease, last cardiac cath in 2004. Repeat stress test in 2014 - suspicious ischemia however refused cardiac catherization at that time. Previous ECHO showed mild mitral and tricuspid regurgitation . Preserved LV function. 3.37 seconds pause on telemetry. Held Betablocker and holter monitor showed NSR not requiring PPM. patient was in 5R, however she fell and rule out syncope. She was transferred to telemetry. and now has urinary tract infection on antibiotics. C4/C5 cervical spinal compression. Plan: Seen by Neurology Cervical spine compression C4/C5 recommending surgery, daughter wanted surgery to be done in [facility] in [place] Seen by Psychiatrist to evaluate and adjust medications Continue antibiotics for urinary tract infection Patient refusing cardiac catheterization, Dr. Sanchez discussed with daughter however patient still refusing Cardiac status stable/guarded Continue current medications Continue current treatment Fall precaution Will follow up Plan and treatment discussed with Dr. Sanchez
[2017-07-07] MEDS: Multivitamin Therapeutic Tab PO SCH (09:52)
[2017-07-07] MEDS: Calcium-Vit D 250 mg-125 Units Tab UD PO SCH (09:53)
[2017-07-07] MEDS: POLYETHYLENE GLYCOL 3350 17 GM/Dose PACKET PO SCH (09:53)
[2017-07-07] MEDS: Enoxaparin 40 mg Syringe SC SCH (09:53)
--- NOTE | 2017-07-07 12:51 | CP.PCM.PN ---
Subjective - Date & Time of Evaluation Date of Evaluation: 07/07/17 Time of Evaluation: 12:45 - Subjective Subjective: Mrs. Puri was seen and examined today at bedside. She was to be transferred yesterday to [place] for cervical decompressive surgery, but there was a problem with transport and the family refused to have her transferred. Today, the patient has progression of her weakness and worsening neck pain. I spoke with Dr. Davies, who once again stressed the necessity for surgery and requested cardiac clearance prior to the surgery to ensure she would be able to undergo the surgery and anesthesia. However, the patient and her daughter had refused cardiac catheterization before for further evaluation of the degree of coronary artery and cardiac disease. I attempted to call the daughter to discuss all of this with her and to let her know that her mother needs the surgery and needs cardiac clearance, but she did not answer the phone. I left a voicemail for her to call me back. Objective - Vital Signs/Intake and Output Vital Signs (last 24 hours): Temp Pulse Resp BP Pulse Ox 98.6 F 54 L 18 118/63 97 07/06/17 18:00 07/06/17 18:00 07/06/17 18:00 07/06/17 18:00 07/06/17 09:00 - Medications Medications: Current Medications Acetaminophen (Tylenol 325mg Tab) 650 mg PO Q6H PRN PRN Reason: Pain, moderate (4-7) Last Admin: 07/07/17 06:19 Dose: 650 mg Albuterol/Ipratropium (Duoneb 3 Mg/0.5 Mg (3 Ml) Ud) 3 ml IH [id number] PRN PRN Reason: Shortness of Breath Last Admin: 07/06/17 06:12 Dose: 3 ml Aspirin (Aspirin Chewable) 81 mg PO DAILY [facility] Last Admin: 07/07/17 09:48 Dose: 81 mg Bisacodyl (Dulcolax) 10 mg RC DAILY [facility] Last Admin: 07/06/17 09:23 Dose: 10 mg Calcium/Vitamin D (Oscal-D 250 Mg-125 Units Tab) 1 tab PO DAILY [facility] Last Admin: 07/07/17 09:53 Dose: 1 tab Ciprofloxacin (Cipro) 250 mg PO Q12 [facility] PRN Reason: Protocol Stop: 07/11/17 18:13 Last Admin: 07/07/17 09:49 Dose: 250 mg Docusate Sodium (Colace) 200 mg PO DAILY [facility] Last Admin: 07/07/17 09:50 Dose: 200 mg Enoxaparin Sodium (Lovenox) 40 mg SC DAILY [facility] PRN Reason: Protocol Last Admin: 07/07/17 09:53 Dose: 40 mg Famotidine (Pepcid) 40 mg PO HS [facility] Last Admin: 07/06/17 22:28 Dose: 40 mg Ferrous Sulfate (Feosol) 324 mg PO TID [facility] Last Admin: 07/07/17 09:51 Dose: 324 mg Fluoxetine HCl (Prozac) 10 mg PO DAILY [facility] Last Admin: 07/07/17 09:51 Dose: 10 mg Folic Acid (Folic Acid) 1 mg PO DAILY [facility] Last Admin: 07/07/17 09:53 Dose: 1 mg Guaifenesin (Robitussin) 100 mg PO TID [facility] Last Admin: 07/06/17 18:22 Dose: 100 mg Hydralazine HCl (Apresoline) 10 mg PO QID PRN PRN Reason: for sbp>170 Dexamethasone 4 mg/ Sodium (Chloride) 51 mls @ 150 mls/hr IV Q6H [facility] Last Admin: 07/07/17 09:50 Dose: 150 mls/hr Lactulose (Enulose) 20 gm PO DAILY [facility] Last Admin: 07/07/17 09:51 Dose: 20 gm Lidocaine (Lidoderm) 2 ea TD 2200 [facility] Last Admin: 07/06/17 22:20 Dose: 2 ea Loratadine (Claritin) 10 mg PO DAILY [facility] Last Admin: 07/07/17 09:49 Dose: 10 mg Montelukast Sodium (Singulair) 10 mg PO DAILY [facility] Last Admin: 07/07/17 09:52 Dose: 10 mg Multivitamins (Thera Tab) 1 tab PO 0800 [facility] Last Admin: 07/07/17 09:52 Dose: 1 tab Non-Formulary Medication (Mirabegron [Myrbetriq]) 25 mg PO DAILY [facility] Last Admin: 07/06/17 09:07 Dose: Not Given Polyethylene Glycol (Miralax) 17 gm PO DAILY [facility] Last Admin: 07/07/17 09:53 Dose: 17 gm Tamsulosin HCl (Flomax) 0.4 mg PO DAILY [facility] Last Admin: 07/07/17 09:53 Dose: 0.4 mg - Labs Labs: 07/06/17 06:30 07/06/17 06:30 PT 12.6 SECONDS (9.4-12.5) H 06/22/17 12:30 INR 1.09 (0.93-1.08) H 06/22/17 12:30 APTT 29.6 Seconds (25.1-36.5) 06/22/17 12:30 - Neurological Exam Neurological Exam: Awake, CN II-XII Intact, Oriented x3 Neuro motor strength exam: Left Upper Extremity: 2/1, Right Upper Extremity: 2/1 , Left Lower Extremity: 3, Right Lower Extremity: 3 Additional comments: Brisk reflexes in all extremities. Sensation is intact. Assessment and Plan (1) Cervical spinal cord compression Assessment & Plan: Surgery is the best option at this point. Continue decadron for now. Case management and social services analyst help would be appreciated. The patient needs cardiac clearance prior to surgery. No further recommendations from a neurological perspective at this time. Status: Acute
[2017-07-07] MEDS: guaiFENesin 100 mg/5 ml Syrup UD PO SCH ×3 (13:00→17:11)
--- NOTE | 2017-07-07 13:10 | CP.PCM.PN ---
Subjective - Date & Time of Evaluation Date of Evaluation: 07/07/17 Time of Evaluation: 13:09 - Subjective Subjective: called by Dr Regan Pt's family no longer wishes her to be transfered to [place], and wishes surgery here I will schedule her for surgery as soon as I am notified that she is medically and cardiac cleared Objective - Vital Signs/Intake and Output Vital Signs (last 24 hours): Temp Pulse Resp BP Pulse Ox 98.6 F 54 L 18 118/63 97 07/06/17 18:00 07/06/17 18:00 07/06/17 18:00 07/06/17 18:00 07/06/17 09:00 - Medications Medications: Current Medications Acetaminophen (Tylenol 325mg Tab) 650 mg PO Q6H PRN PRN Reason: Pain, moderate (4-7) Last Admin: 07/07/17 06:19 Dose: 650 mg Albuterol/Ipratropium (Duoneb 3 Mg/0.5 Mg (3 Ml) Ud) 3 ml IH [id number] PRN PRN Reason: Shortness of Breath Last Admin: 07/06/17 06:12 Dose: 3 ml Aspirin (Aspirin Chewable) 81 mg PO DAILY [facility] Last Admin: 07/07/17 09:48 Dose: 81 mg Bisacodyl (Dulcolax) 10 mg RC DAILY [facility] Last Admin: 07/07/17 13:00 Dose: 10 mg Calcium/Vitamin D (Oscal-D 250 Mg-125 Units Tab) 1 tab PO DAILY [facility] Last Admin: 07/07/17 09:53 Dose: 1 tab Ciprofloxacin (Cipro) 250 mg PO Q12 [facility] PRN Reason: Protocol Stop: 07/11/17 18:13 Last Admin: 07/07/17 09:49 Dose: 250 mg Docusate Sodium (Colace) 200 mg PO DAILY [facility] Last Admin: 07/07/17 09:50 Dose: 200 mg Enoxaparin Sodium (Lovenox) 40 mg SC DAILY [facility] PRN Reason: Protocol Last Admin: 07/07/17 09:53 Dose: 40 mg Famotidine (Pepcid) 40 mg PO HS [facility] Last Admin: 07/06/17 22:28 Dose: 40 mg Ferrous Sulfate (Feosol) 324 mg PO TID [facility] Last Admin: 07/07/17 13:00 Dose: 324 mg Fluoxetine HCl (Prozac) 10 mg PO DAILY [facility] Last Admin: 07/07/17 09:51 Dose: 10 mg Folic Acid (Folic Acid) 1 mg PO DAILY [facility] Last Admin: 07/07/17 09:53 Dose: 1 mg Guaifenesin (Robitussin) 100 mg PO TID [facility] Last Admin: 07/07/17 13:00 Dose: 100 mg Hydralazine HCl (Apresoline) 10 mg PO QID PRN PRN Reason: for sbp>170 Dexamethasone 4 mg/ Sodium (Chloride) 51 mls @ 150 mls/hr IV Q6H [facility] Last Admin: 07/07/17 09:50 Dose: 150 mls/hr Lactulose (Enulose) 20 gm PO DAILY [facility] Last Admin: 07/07/17 09:51 Dose: 20 gm Lidocaine (Lidoderm) 2 ea TD 2200 [facility] Last Admin: 07/06/17 22:20 Dose: 2 ea Loratadine (Claritin) 10 mg PO DAILY [facility] Last Admin: 07/07/17 09:49 Dose: 10 mg Montelukast Sodium (Singulair) 10 mg PO DAILY [facility] Last Admin: 07/07/17 09:52 Dose: 10 mg Multivitamins (Thera Tab) 1 tab PO 0800 [facility] Last Admin: 07/07/17 09:52 Dose: 1 tab Non-Formulary Medication (Mirabegron [Myrbetriq]) 25 mg PO DAILY [facility] Last Admin: 07/06/17 09:07 Dose: Not Given Polyethylene Glycol (Miralax) 17 gm PO DAILY [facility] Last Admin: 07/07/17 09:53 Dose: 17 gm Tamsulosin HCl (Flomax) 0.4 mg PO DAILY [facility] Last Admin: 07/07/17 09:53 Dose: 0.4 mg - Labs Labs: 07/06/17 06:30 07/06/17 06:30 PT 12.6 SECONDS (9.4-12.5) H 06/22/17 12:30 INR 1.09 (0.93-1.08) H 06/22/17 12:30 APTT 29.6 Seconds (25.1-36.5) 06/22/17 12:30
--- NOTE | 2017-07-07 13:54 | CP.PCM.PN ---
Subjective - Date & Time of Evaluation Date of Evaluation: 07/07/17 Time of Evaluation: 12:50 - Subjective Subjective: no chest pain, no SOB Objective - Vital Signs/Intake and Output Vital Signs (last 24 hours): Temp Pulse Resp BP Pulse Ox 98.6 F 54 L 18 118/63 97 07/06/17 18:00 07/06/17 18:00 07/06/17 18:00 07/06/17 18:00 07/06/17 09:00 - Medications Medications: Current Medications Acetaminophen (Tylenol 325mg Tab) 650 mg PO Q6H PRN PRN Reason: Pain, moderate (4-7) Last Admin: 07/07/17 06:19 Dose: 650 mg Albuterol/Ipratropium (Duoneb 3 Mg/0.5 Mg (3 Ml) Ud) 3 ml IH [id number] PRN PRN Reason: Shortness of Breath Last Admin: 07/06/17 06:12 Dose: 3 ml Aspirin (Aspirin Chewable) 81 mg PO DAILY [facility] Last Admin: 07/07/17 09:48 Dose: 81 mg Bisacodyl (Dulcolax) 10 mg RC DAILY [facility] Last Admin: 07/07/17 13:00 Dose: 10 mg Calcium/Vitamin D (Oscal-D 250 Mg-125 Units Tab) 1 tab PO DAILY [facility] Last Admin: 07/07/17 09:53 Dose: 1 tab Ciprofloxacin (Cipro) 250 mg PO Q12 [facility] PRN Reason: Protocol Stop: 07/11/17 18:13 Last Admin: 07/07/17 09:49 Dose: 250 mg Docusate Sodium (Colace) 200 mg PO DAILY [facility] Last Admin: 07/07/17 09:50 Dose: 200 mg Enoxaparin Sodium (Lovenox) 40 mg SC DAILY [facility] PRN Reason: Protocol Last Admin: 07/07/17 09:53 Dose: 40 mg Famotidine (Pepcid) 40 mg PO HS [facility] Last Admin: 07/06/17 22:28 Dose: 40 mg Ferrous Sulfate (Feosol) 324 mg PO TID [facility] Last Admin: 07/07/17 13:00 Dose: 324 mg Fluoxetine HCl (Prozac) 10 mg PO DAILY [facility] Last Admin: 07/07/17 09:51 Dose: 10 mg Folic Acid (Folic Acid) 1 mg PO DAILY [facility] Last Admin: 07/07/17 09:53 Dose: 1 mg Guaifenesin (Robitussin) 100 mg PO TID [facility] Last Admin: 07/07/17 13:00 Dose: 100 mg Hydralazine HCl (Apresoline) 10 mg PO QID PRN PRN Reason: for sbp>170 Dexamethasone 4 mg/ Sodium (Chloride) 51 mls @ 150 mls/hr IV Q6H [facility] Last Admin: 07/07/17 09:50 Dose: 150 mls/hr Lactulose (Enulose) 20 gm PO DAILY [facility] Last Admin: 07/07/17 09:51 Dose: 20 gm Lidocaine (Lidoderm) 2 ea TD 2200 [facility] Last Admin: 07/06/17 22:20 Dose: 2 ea Loratadine (Claritin) 10 mg PO DAILY [facility] Last Admin: 07/07/17 09:49 Dose: 10 mg Montelukast Sodium (Singulair) 10 mg PO DAILY [facility] Last Admin: 07/07/17 09:52 Dose: 10 mg Multivitamins (Thera Tab) 1 tab PO 0800 [facility] Last Admin: 07/07/17 09:52 Dose: 1 tab Non-Formulary Medication (Mirabegron [Myrbetriq]) 25 mg PO DAILY [facility] Last Admin: 07/06/17 09:07 Dose: Not Given Polyethylene Glycol (Miralax) 17 gm PO DAILY [facility] Last Admin: 07/07/17 09:53 Dose: 17 gm Tamsulosin HCl (Flomax) 0.4 mg PO DAILY [facility] Last Admin: 07/07/17 09:53 Dose: 0.4 mg - Labs Labs: 07/06/17 06:30 07/06/17 06:30 PT 12.6 SECONDS (9.4-12.5) H 06/22/17 12:30 INR 1.09 (0.93-1.08) H 06/22/17 12:30 APTT 29.6 Seconds (25.1-36.5) 06/22/17 12:30 - Respiratory Exam Respiratory Exam: Clear to Ausculation Bilateral, NORMAL BREATHING PATTERN - Cardiovascular Exam Cardiovascular Exam: REGULAR RHYTHM - GI/Abdominal Exam GI & Abdominal Exam: Soft, Normal Bowel Sounds - Extremities Exam Extremities Exam: Normal Inspection - Neurological Exam Neurological Exam: Alert, Awake - Skin Skin Exam: Dry, Warm Assessment and Plan (1) CHF (congestive heart failure) Status: Chronic (2) Cervical spinal cord compression Status: Chronic - Assessment and Plan (Free Text) Plan: continue present rx, SW for DC planning
--- NOTE | 2017-07-07 23:18 | PN ---
DATE: 07/07/2017 PULMONARY PROGRESS NOTE REFERRING PHYSICIAN: Dr. Amaya. SUBJECTIVE: She is lying in the bed, head at 45 degree. Has a cervical collar. Night was unremarkable. On and off had some neck discomfort. Feeling weakness in all 4 extremities. No cough. No sputum production. No chest pain. No nausea. Had a bowel movement. No leg pain or leg swelling. OBJECTIVE: GENERAL: In no acute distress. VITAL SIGNS: Temperature is 98, heart rate is 54, respiratory rate is 18, blood pressure is 118/63, pulse ox 95% on 2 liters nasal cannula. HEENT: Moist mucous membrane. Crowded airway. NECK: Has a cervical collar. LUNGS: Have a few fair airflow with rhonchi. HEART: S1 and S2. ABDOMEN: Soft, nontender, no organomegaly. EXTREMITIES: No edema. NEUROLOGIC: Awake, alert, and follows simple command. Her all 4 extremities have weakness. MEDICATIONS: She is on hydralazine 10 mg q.i.d. p.r.n., aspirin 81 mg daily, Cipro 250 mg twice a day, Claritin 10 mg daily, Colace 200 mg daily, dexamethasone 4 mg every 6 hours, Dulcolax 10 mg daily, DuoNeb every 6 hours p.r.n., lactulose 20 g daily, ferrous sulfate 324 mg three times a day, Flomax 0.4 mg daily, folic acid 1 mg daily, lidocaine patch at affected area, Lovenox 40 mg daily, MiraLax 17 g daily, Neurontin 300 mg every 8 hours, Pepcid 40 mg daily, Prozac 10 mg daily, Robitussin p.r.n. basis, Singulair 10 mg daily, multivitamins daily, Tylenol p.r.n. LABORATORY DATA: Shows no new lab is available since yesterday. Urine has Proteus mirabilis. IMPRESSION AND PLAN: Chronic obstructive lung disease, may have sleep apnea syndrome, hypertension, hyperlipidemia, bipolar disorder, chronic rash, bladder outlet obstruction, has a Bruno catheter, chronic constipation, cervical stenosis. From a Pulmonary point of view, she is doing well, keep head at 45 degree, p.r.n. bronchodilator, sleep apnea precaution. If sedated, needs close cardiopulmonary monitoring for sleep apnea. Complaining of neck pain, one dose of Percocet given. We will let Neurology decide pain medication. She is already on Neurontin. Neurology and Neurosurgery note reviewed. Needs cervical surgery. Awaiting cardiology clearance. From a Pulmonary point of view, she is okay. Pulmonary status is optimized. Thank you and we will follow with you. Elena Gant MD
--- NOTE | 2017-07-09 09:16 | CP.PCM.PCO ---
Physician Communication Note - Physician Communication Note Physician Communication Note: pt was d/c, pt needs to be f/u with psychiatric team within 48hrs
--- NOTE | 2017-07-09 09:46 | PN ---
DATE: 07/08/2017 SUBJECTIVE: The patient is a 76-year-old female. The patient was seen and examined on the bedside on 07/06/2017. Looking comfortable, awake and alert. No change happened overnight. Actually, she is even more energetic, not lethargic. Daughter was not on the bedside. No hematuria. No hematochezia. No headache. No dizziness. No chest pain. No palpitation. PHYSICAL EXAMINATION: VITAL SIGNS: Temperature 98.6, pulse 54, respiratory rate 18, blood pressure 120/80 , pulse oximetry 97. HEENT: Head, normocephalic and atraumatic. Eyes, PERRLA. Extraocular muscles intact. Conjunctivae clear. Nose patent. Mucous membrane moist. NECK: Supple. No carotid bruit. No JVD or thyromegaly. CHEST: Bilaterally symmetrical. HEART: S1 and S2 positive. LUNGS: Clear to auscultation. ABDOMEN: Soft. Bowel sounds present. No organomegaly. NEUROLOGIC: The patient is awake and alert. Follows simple command. Oriented x3. Cranial nerves II through XII are grossly intact. EXTREMITIES: Left upper extremity 2/1, right upper extremity 2/1, left lower extremity 3, right lower extremity 3 with neuromotor strength on examination as per neurologist. LABORATORY DATA: White blood cell is 10.7, hemoglobin 12.7, hematocrit 40.6, platelet 190. Sodium 140, potassium 4.7, BUN 23, creatinine noted glucose 138. MEDICATIONS: Aspirin, Dulcolax, Proscar, Cipro, Colace, Lovenox, Pepcid, hydralazine, Lidoderm, Claritin, Singulair, multivitamins and MiraLax. ASSESSMENT AND PLAN: Ms. Karolina Hamm is a 76-year-old lady with hyperglycemia, cervical cord compression and according to Dr. Regan, neurologist and Dr. Davies, neurosurgeon, surgery is the best choice at this moment. Continue Decadron as per neurologist, but they want cardiac clearance. Patient's family and patient refused cardiac catheterization in the past, now again neurologist is on the case. Patient has schizophrenia, bipolar, history of hypertension. Psychiatrist, Dr. Geovanna Gallardo is on the case. History of chronic obstructive lung disease, sleep apnea syndrome, hypercholesterolemia, chronic rash, has multiple times visited with the head librarian, bladder outlet obstruction, has Bruno catheter, chronic constipation, cervical stenosis. Neurology, Neurosurgery is on the case, talking about transferring the patient, try to help the daughter and daughter is helping nurse about the transfer. Dr. Regan spoke to the other primary care physician in [place] and gave him patient's history. Meanwhile, continue gastrointestinal and deep venous thrombosis prophylaxis. Repeat labs. We will follow up. Zulema Amaya MD [id number]
== END 2017-07-07 21:30 | disposition short-term general hospital (02) | DRG 690 ==
LOC: ED 12:06 → ERH 13:13 → 2RNO 17:45 → 5RNO 06-27 12:36 → 2RSO 07-01 23:02 → 3RSO 07-06 23:26
PROVIDERS: ADMIT Internal Medicine; ATTEND Internal Medicine
DX: N39.0 Urinary tract infection, site not specified (principal); G95.20 Unspecified cord compression; I11.0 Hypertensive heart disease with heart failure; I50.9 Heart failure, unspecified; J44.9 Chronic obstructive pulmonary disease, unspecified; E78.5 Hyperlipidemia, unspecified; G47.30 Sleep apnea, unspecified; F31.9 Bipolar disorder, unspecified; F25.9 Schizoaffective disorder, unspecified; D50.9 Iron deficiency anemia, unspecified; E83.51 Hypocalcemia; B96.4 Proteus (mirabilis) (morganii) as the cause of diseases classified elsewhere; E66.01 Morbid (severe) obesity due to excess calories; E78.00 Pure hypercholesterolemia, unspecified; E83.39 Other disorders of phosphorus metabolism; E86.0 Dehydration; F06.4 Anxiety disorder due to known physiological condition; I08.1 Rheumatic disorders of both mitral and tricuspid valves; I25.10 Atherosclerotic heart disease of native coronary artery without angina pectoris; I27.20 Pulmonary hypertension, unspecified; J98.4 Other disorders of lung; K59.09 Other constipation; M19.90 Unspecified osteoarthritis, unspecified site; M25.78 Osteophyte, vertebrae; M50.21 Other cervical disc displacement, high cervical region; M50.221 Other cervical disc displacement at C4-C5 level; N13.9 Obstructive and reflux uropathy, unspecified; N32.0 Bladder-neck obstruction; N39.41 Urge incontinence; S01.112A Laceration without foreign body of left eyelid and periocular area, initial encounter; S01.81XA Laceration without foreign body of other part of head, initial encounter; W19.XXXA Unspecified fall, initial encounter; Z53.20 Procedure and treatment not carried out because of patient's decision for unspecified reasons; Z79.82 Long term (current) use of aspirin; Z79.899 Other long term (current) drug therapy; Z87.01 Personal history of pneumonia (recurrent); Z87.440 Personal history of urinary (tract) infections; Z87.81 Personal history of (healed) traumatic fracture; Z87.891 Personal history of nicotine dependence; Z91.19 Patient's noncompliance with other medical treatment and regimen; Z91.81 History of falling; Z98.1 Arthrodesis status; R26.81 Unsteadiness on feet; Z88.8 Allergy status to other drugs, medicaments and biological substances; Z91.018 Allergy to other foods; R40.2412 Glasgow coma scale score 13-15, at arrival to emergency department; Z90.49 Acquired absence of other specified parts of digestive tract; Z68.33 Body mass index [BMI] 33.0-33.9, adult